=== PATIENT | male | born 1965 | race Caucasian/White ===

== ENCOUNTER 2021-01-04 11:19 | Outpatient (CLI) | payer BC, SELFPAY ==
[2021-01-04 12:13] LABS: D Dimer 0.32 ug/mL (<0.48)
== END 2021-01-04 11:20 | disposition home or self-care (01) ==
LOC: ANHLAB 11:20
PROVIDERS: PCP Family Medicine; Visit Provider Family Medicine
DX: M79.662 Pain in left lower leg (principal)
CPT/HCPCS: 36415; 85380

== ENCOUNTER 2022-01-18 15:01 | Outpatient (CLI) | payer BC, SELFPAY ==
[2022-01-18 16:43] LABS: Anion Gap 16 mmol/L (8-16); Blood Urea Nitrogen 15 mg/dL (9-20); Calcium 9.6 mg/dL (8.4-10.2); Carbon Dioxide 26 mmol/L (22-30); Chloride 91 mmol/L (98-107); Estimated Glomerular Filt Rate > 60; Glucose 354 mg/dL (65-110); HDL Direct 61 mg/dL; Potassium 4.3 mmol/L (3.4-5.0); Sodium 133 mmol/L (137-145)
[2022-01-18 16:54] LABS: LDL Cholesterol Direct 149 mg/dL
[2022-01-18 17:20] LABS: Microalbumin Urine Random 54.2 mg/L (0-16.7)
[2022-01-18 17:23] LABS: Creatinine Urine 40.9 mg/dL; MALB Creatinine Ratio 132.5 mg/g (0-30)
== END 2022-01-18 15:02 | disposition home or self-care (01) ==
LOC: ANHWCLAB 15:02
PROVIDERS: PCP Family Medicine; Visit Provider Internal Medicine Endocrinology, Diabetes & Metabolism
DX: E10.65 Type 1 diabetes mellitus with hyperglycemia (principal); E10.69 Type 1 diabetes mellitus with other specified complication; E78.5 Hyperlipidemia, unspecified
CPT/HCPCS: 36415; 80048; 82043; 83718; 83721; 84443

== ENCOUNTER 2023-05-27 08:19 | Emergency (ER) | payer BC, SELFPAY ==
[2023-05-27] VITALS (25 sets, daily range): BP systolic 129–182; BP diastolic 78–99; PULSE 106–121; RESP 15–26; O2SAT 99–100
--- NOTE | ~2023-05-27 | CT_ITS ---
EXAMINATION: CT abdomen pelvis w con DATE: 05/27/2023 09:39 INDICATION: Vomiting TECHNIQUE: Computed tomography (CT) of the abdomen and pelvis was performed with 100 mL Omnipaque-350 intravenous contrast. Automated exposure control and iterative reconstruction technique were employe d. The dose-length product was 700.46 mGy-cm. COMPARISON: None FINDINGS: Mild discoid atelectasis at the lingula, right middle and left lower lobes. Heart size is normal. No pericardial or pleural effusion. Liver, gallbladder, spleen, pancreas and bilateral adrenal glands ar e normal. Bilateral low-attenuation renal cysts the largest on the left measuring 1.5 cm. There is hutchinson btle urothelial enhancement along the left ureter and intrarenal collecting system which raises suspi cion for ascending urinary tract infection. No evident urolithiasis. Bladder is normal. Bowels includ ing the appendix are normal. No free intraperitoneal gas or fluid. No pathologically enlarged abdomin al or pelvic lymphadenopathy. Calcification along the bilateral seminal vesicles which can be seen wi th diabetes. Small fat-containing umbilical hernia. Severe lumbar and lower thoracic spondylosis. IMPRESSION: 1. Subtle urothelial enhancement along the left ureter and renal collecting system suspicious for asc ending urinary tract infection. Correlate with urinalysis. Reviewed, dictated and finalized at location B. IMPRESSION: 1. Subtle urothelial enhancement along the left ureter and renal collecting sys tem suspicious for ascending urinary tract infection. Correlate with urinalysis .
[2023-05-27 08:29] LABS: Glucose Point of Care 283 mg/dl (65-105)
[2023-05-27 08:36] LABS: Basophils Absolute Auto 0.1 K/mm3 (0.0-0.1); Basophils Percent Auto 0.2 % (0.2-1.2); Hematocrit 45.6 % (42.0-52.0); Hemoglobin 15.7 g/dL (14.0-18.0); Immature Granulocyte Absolute 0.15 K/mm3 (0.00-0.031); Immature Granulocyte Percent A 0.6 % (0-0.5); Lymphocytes Absolute Auto 1.33 K/mm3 (0.9-3.2); Mean Corpuscular HGB Conc 34.4 g/dl (32-36); Mean Corpuscular Hemoglobin 32.1 pg (26-34); Mean Corpuscular Volume 93.3 fl (80-100); Mean Platelet Volume 9.4 fl (7.4-10.4); Monocytes Absolute Auto 2.2 K/mm3 (0.1-0.6); Monocytes Percent Auto 8.2 % (2.6-8.5); Neutrophils Absolute Auto 22.9 K/mm3 (1.3-6.7); Platelet Count Result 350 k/mm3 (150-375); Red Blood Count 4.89 M/mm3 (4.6-6.20); Red Cell Distribution Width 12.7 % (11.5-14.5); White Blood Count 26.6 K/mm3 (4.5-10.0)
[2023-05-27] MEDS: SODIUM CHLORIDE 0.9% IV 1,000 ML 999 ML IV CONT ×2 (08:38→08:39)
[2023-05-27] MEDS: ONDANSETRON INJ 4 MG/2 ML VIAL IV PUSH (08:39)
[2023-05-27 08:49] LABS: Alanine Aminotransferase 34 U/L (6-50); Albumin Level 4.7 g/dL (3.5-5.1); Alkaline Phosphatase 109 U/L (38-126); Anion Gap 12 mmol/L (8-16); Aspartate Amino Transferase 54 U/L (17-59); Bilirubin,Total 0.6 mg/dL (0.2-1.3); Blood Urea Nitrogen 32 mg/dL (9-20); Calcium 10.1 mg/dL (8.4-10.2); Carbon Dioxide 17 mmol/L (22-30); Chloride 102 mmol/L (98-107); Estimated CRCL calculation 85 ml/min; Estimated Glomerular Filt Rate > 60; Glucose 293 mg/dL (65-110); Magnesium 2.3 mg/dL (1.6-2.3); Potassium 4.3 mmol/L (3.4-5.0); Sodium 131 mmol/L (137-145)
[2023-05-27 08:50] LABS: Beta-Hydroxybutyrate/Acetoacetate 2.29 mmol/L (0.02-0.27)
[2023-05-27 09:47] LABS: Influenza A QL RT-PCR Negative (Negative); Influenza B QL RT-PCR Negative (Negative); RSV RNA, RT-PCR Negative (Negative); SARS-CoV-2 RNA PCR Negative (Negative)
[2023-05-27 10:17] LABS: Appearance Urine Clear (Clear); Bilirubin Urine Negative (Negative); Blood Urine Negative (Negative); Color Urine Yellow (Yellow); Glucose Urine UA 2+ mg/dL (Negative); Ketones Urine 1+ mg/dL (Negative); Leukocyte Esterase Ur Negative LEU/UL (Negative); Nitrate Urine Negative (Negative); Protein Urine Negative (Negative); Specific Grav Ur 1.026 (1.001-1.035); Urobilinogen Urine 0.2 mg/dL (<2.0); pH Urine 5.5 (5.0-9.0)
[2023-05-27 10:18] LABS: Add Urine Microscopic? NO
[2023-05-27 10:24] LABS: Glucose Point of Care 251 mg/dl (65-105)
[2023-05-27 10:26] LABS: Lactic Acid Reflex 0.8 mmol/L (0.7-2.0)
[2023-05-27 10:34] LABS: Alveolar/Arterial O2 Gradient 35.4 mmHg; Base Excess ABG -8.7 mEq/l (+/-2.0); Carboxyhemoglobin 0.7 % THb (0-2.0); Fractional Inspired Oxygen 21 %; HCO3 ABG 15.3 mEq/l (22.0-26.0); Methemoglobin ABG 0.2 %THb (0-1.5); Oxygen Content ABG 19.8 %vol (16.0-22.0); Oxygen Saturation ABG 95.5 % (95.0-100.0); PCO2 ABG 28.5 mmHg (35.0-45.0); PO2 ABG 80.2 mmHg (80.0-100.0); PO2 FiO2 Ratio Arterial Blood 3.82 %; Reduced Hemoglobin 4.1 %THb (0-5.0); Total Hemoglobin 14.8 g/dL (12.0-18.0); pH ABG 7.348 (7.350-7.450)
[2023-05-27 10:35] LABS: Device ROOM AIR; Modified Allen's Test Pass; Site Drawn LEFT RADIAL
--- NOTE | 2023-05-27 13:15 | ED.GENADULT ---
HPI - General Adult General Chief complaint: Recheck/Abnormal Lab/Rx Stated complaint: N/V, high BS Time Seen by Provider: 05/27/23 08:29 History of Present Illness HPI narrative: Patient is a 58-year-old male who presents ER with nausea vomiting. Ongoing for 2 days. Severe yesterday. No antiemetics at home. Patient patient is a type 1 diabetic. His blood sugars have been greater than 500 yesterday. He felt too weak to bolus himself. He does have an insulin pump. Her chest pain chest pressure. No diarrhea. No known sick contacts. Related Data Home Medications Medication Instructions Recorded Confirmed glucagon 3 mg/actuation nasal spray 3 mg intranasal ONCE PRN 03/14/23 03/14/23 insulin pump cart,cont inf,BT 03/14/23 03/14/23 (Omnipod Dash Pods (Gen 4) subcutaneous cartridge) Allergies Allergy/AdvReac Type Severity Reaction Status Date / Time Penicillins Allergy Mild other Verified 05/27/23 08:24 cipro IV Allergy Mild Swelling Uncoded 05/27/23 08:24 Review of Systems Review of Systems: All systems reviewed & are unremarkable except as noted in HPI and below Constitutional: Constitutional: Denies chills, Reports fatigue and Denies fever(s) ENT: Reports system reviewed and no additional complaints, except as documented Cardiovascular: Cardiovascular: Reports no additional cardiovascular complaints Respiratory: Respiratory: Reports no additional respiratory complaints Gastrointestinal: Gastrointestinal: Denies abdominal pain, Denies bloating, Denies diarrhea, Reports nausea and Reports vomiting Genitourinary: Genitourinary: Reports no additional male genitourinary complaints Musculoskeletal: Musculoskeletal: Reports no additional musculoskeletal complaints [facility] Past Medical History Medical History (Updated 05/27/23 @ 13:17 by Danny Restrepo MD) Acute bilateral low back pain with left-sided sciatica Benign paroxysmal positional vertigo due to bilateral vestibular disorder BMI 29.0-29.9,adult BMI 30.0-30.9,adult BMI 31.0-31.9,adult Colon cancer screening Diabetes Diabetic retinopathy associated with type 1 diabetes mellitus 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 Encounter for wellness examination in adult Gastro-esophageal reflux disease without esophagitis H/O: HTN (hypertension) Overweight (BMI 25.0-29.9) Pain in left lower leg Social History Social History (Updated 03/14/23 @ 08:43 by Emma Hyde [facility]) Smoking status: Never smoker Alcohol intake: current Drinks per week: 3 Substance use: never Substance use type: does not use Do You Feel Safe in your Home?: Yes Lack of Transportation: No Lack of Food: Sometimes True Current Housing: I Have Housing Concerned About Future Housing: No Difficulty Paying Gas/Electric Bills: No Difficulty Paying for Meds: No Currently Unemployed: No Education: High School Diploma/GED Difficulty w/ Childcare or Family Care: No Exam Narrative: GENERAL: Fatigued-appearing, well-nourished, and in no acute distress. HEAD: Normocephalic, atraumatic. ENT: Mucous membranes moist. CHEST: Clear to auscultation. No respiratory distress. HEART: Tachycardic and regular. Normal peripheral pulses. ABDOMEN: Soft, nontender, nondistended. EXTREMITIES: Normal range of motion. No edema. SKIN: Warm, dry, no rash. NEURO: Alert and oriented x3. PSYCH: Normal mood and affect. Course Course Emergency Course: Patient given 2 L IV fluid. He has also received antiemetics. Feels much better you and has regained his appetite in the like to leave. Patient is still mildly tachycardic. Patient had some ketones in his very mild acidotic. Patient feels comfortable bolus himself with insulin at home. He will be given some antiemetics. Leukocytosis felt to be from forceful retching. CT of the abdomen pelvis showed some stranding of the ureter. We will cautiously prescribed oral an
== END 2023-05-27 13:42 | disposition home or self-care (01) ==
PROVIDERS: Emergency Provider Emergency Medicine; PCP Family Medicine
DX: E10.65 Type 1 diabetes mellitus with hyperglycemia (principal); R11.2 Nausea with vomiting, unspecified; Z20.822 Contact with and (suspected) exposure to COVID-19; I10 Essential (primary) hypertension; E10.3299 Type 1 diabetes mellitus with mild nonproliferative diabetic retinopathy without macular edema, unspecified eye; E66.3 Overweight; Z68.27 Body mass index [BMI] 27.0-27.9, adult; H81.13 Benign paroxysmal vertigo, bilateral; R93.41 Abnormal radiologic findings on diagnostic imaging of renal pelvis, ureter, or bladder; Z79.4 Long term (current) use of insulin
CPT/HCPCS: 36415; 36600; 74177; 80053; 81003; 82010; 82375; 82805; 82948; 83050; 83605; 83735; 84100; 85025; 87637; 96361; 96374; 99284; J2405; J7030; Q9967

== ENCOUNTER 2024-05-21 06:14 | Inpatient (IN) | payer OTHER, SELFPAY ==
[2024-05-21] VITALS (11 sets, daily range): BP systolic 136–164; BP diastolic 76–115; PULSE 89–117; RESP 16–163; TEMP 36.6–36.9; O2SAT 95–100; BMI 27.6
--- NOTE | ~2024-05-21 | US_ITS ---
EXAMINATION: US abdomen limited DATE: 05/21/2024 12:31 INDICATION: Elevated liver enzymes TECHNIQUE: Multiple grayscale and Doppler ultrasound images of the abdomen were obtained. COMPARISON: None FINDINGS: The pancreatic head and body are normal in appearance. The pancreatic tail is not visualized. Visu alized proximal inferior vena cava is normal. Liver has normal echogenicity and contour, with a william h surface. No liver lesion identified. No intrahepatic biliary duct dilation suspected. Portal venous flow was seen in the hepatopetal, normal direction and has normal Doppler waveform. The gallbladder is normal in appearance. There is no cholelithiasis. The common bile duct measures 4 mm, which is no rmal. Sonographic Amado sign was reported as negative by the training instructor.Right kidney measures 11.9 x 2.1 x 7.4 cm with normal contour and echogenicity and no hydronephrosis. IMPRESSION: 1. Normal right upper quadrant ultrasound. Reviewed, dictated and finalized at location L. [facility] DISPLAY BUILDER
--- NOTE | ~2024-05-21 | CT_ITS ---
CT of the Abdomen and Pelvis: Indication: Transaminitis Technique: 2.5 mm axial scans were obtained through the abdomen and pelvis following intravenous adm inistration of 100 cc of Omnipaque 350. Dose reduction technique was used on this scan by utilizing a utomated exposure control and iterative reconstruction technique. The dose-length product (DLP) was 5 11.24 mGy-cm. COMPARISON: 05/27/2023 Findings: Scans through the lung bases are unremarkable. There is probable diffuse fatty infiltration of liver. The spleen, pancreas, gallbladder, adrenals an d kidneys are within normal limits. No evidence of aortic aneurysm. No lymphadenopathy. No bowel obstruction or bowel wall thickening. There is no evidence to suggest acute appendicitis. Images through the pelvis were performed. Urinary bladder unremarkable. No pelvic mass seen. No ascit es. There is diffuse degenerative spondylosis of the spine. Impression: Diffuse fatty infiltration of the liver. Reviewed, dictated and finalized at [facility]. OR FINANCIAL ACCOUNTANT Impression: Diffuse fatty infiltration of the liver.
--- OUTSIDE RECORDS SUMMARY | 2024-05-21 06:16 | XMS_ITS | Clinical Summary ---
Author Organization [facility] Physician Office Building [address] [place] [id number] Care Team Providers Care Talent Management Manager Name Role Phone Josue Lei MD Primary Care Provider [phone] Allergies Active Allergy Reactions Criticality Noted Date Comments Ciprofloxacin Lactate Unknown Penicillins Medications insulin syringe-needle U-100 0.5 mL 31 gauge x 5/16 syringe Take as directed, 7x daily 630 3 01/21/20 07 Active lancets (ONETOUCH DELICA LANCETS) 33 gauge misc checks b/s QID 600 each 3 07/16/19 12 Active blood glucose diagnostic (ONETOUCH ULTRA TEST) strip tests 4 -6 times daily 600 3 06/08/19 11 Active glucagon (glucagon) 1 mg kit inject to patient in case of major hypoglycemia 2 kit 3 11/14/19 13 Active HYDROcodone-aceta minophen (NORCO) 5-325 mg per tabletIndications :Pain Take 1 tablet by mouth every 6 (six) hours as needed for pain 10/01/19 17 Active CIALIS 20 mg tablet Take as directed 11/05/19 18 Active OMNIPOD INSULIN REFILL cartridgeIndicati ons:Type 1 diabetes mellitus with hyperglycemia (HCC) Change pod every 2 days 9 each 3 12/18/19 18 Active amLODIPine (NORVASC) 10 mg tablet Take 1 tablet (10 mg total) by mouth daily 09/08/19 24 Active irbesartan (AVAPRO) 300 mg tablet Take 1 tablet (300 mg total) by mouth daily 09/08/19 24 Active atorvastatin (LIPITOR) 80 mg tablet Take 1 tablet (80 mg total) by mouth daily 09/08/19 24 Active Omnipod Dash Pods, Gen 4, cartridge CHANGE EVERY 48 HOURS 09/11/19 24 Active pen needle, diabetic (Pen Needle) 32 gauge x 5/32 needle Use as directed once a day. 100 each 10/22/19 24 Active insulin glargine (LANTUS) 100 unit/mL (3 mL) pen for injection Inject 50 Units under the skin nightly 15 mL 10/22/19 24 Active insulin glargine (LANTUS) 100 unit/mL (3 mL) pen for injection Inject 50 Units under the skin nightly 15 mL 10/22/19 24 Active pen needle, diabetic (Pen Needle) 32 gauge x 5/32 needle Use as directed once a day. 100 each 10/22/19 24 Active gabapentin (NEURONTIN) 300 mg capsule Take 1 capsule (300 mg total) by mouth 3 (three) times a day For post-herpetic neuralgia: Take 1 tablet on day 1, Then take 2 tablets on day 2, Then take 3 tablets on day 3 and every day after that as instructed by your doctor. 90 capsule 03/08/20 24 Active ketorolac (TORADOL) 10 mg tablet Take 1 tablet (10 mg total) by mouth every 6 (six) hours as needed for pain 20 tablet 03/08/20 24 Active cyclobenzaprine (FLEXERIL) 10 mg tablet Take 1 tablet (10 mg total) by mouth 3 (three) times a day as needed for muscle spasms 30 tablet 03/08/20 24 Active lidocaine (LIDODERM) 5 %Indications:Pain Place 1 patch on the skin daily Use patch for 12 hours on, 12 hours off. Discard after each use 7 patch 03/08/20 Active Active Problems Problem Noted Date Diagnosed Date Diabetic ketoacidosis withou t coma associated with type 1 diabetes mellitus 10/20/2023 Insulin pump status 11/05/2016 Assessment & Plan (11/05/2016 8:58 AM CDT): Increase 0700 basal to 3.3 History of insertion of insulin pump 11/13/2012 Overview (06/21/2016): Insulin pump status Assessment & Plan (12/12/2017 3:58 PM CDT): Increase 0700 basal to 3.5, 3 pm to 3.8. Will consider [place] change after seeing CGM report. No change to bolus settings. Hyperlipidemia 11/13/2012 Overview (06/22/2016): HYPERLIPIDEMIA NEC/NOS Assessment & Plan (12/12/2017 3:59 PM CDT): Will obtain copy of recent lipid panel. Type I diabetes mellitus uncontrolled 11/13/2012 Overview (06/23/2016): Diabetes Mellitus, Type 1, Uncontrolled Assessment & Plan (11/05/2016 8:59 AM CDT): A1c 7.6. BG are elevated across the day time. PC excursions sometimes elevated but less of an issue. Will adjust daytime basal rate. Check labs Type 1 diabetes mellitus 06/12/2012 Overview (06/22/2016): DMII WO CMP UNCNTRLD Assessment & Plan (12/12/2017 3:58 PM CDT): A1c 8.1. Will adjust basal rates. He is interested in getting Omnipod. Will be more beneficial for work. Would also recommend CGM to provide him with information overnight and for alerts for hypoglycemia. Assessment & Plan (11/12/2016 8:29 AM CDT): A1c 7.6. Will adjust basal rates for elevated mid day pattern. Needs to get copy of recent labs. Schedule eye exam. Encounters Date Type Department Care Team Description 03/08/2024 12:39 PM ACCOUNTANT CONTROLLER - 03/08/2024 2:09 PM [facility] Emergency [address] [address] Degeneration of intervertebral disc of lumbar region with discogenic back pain and lower extremity pain (Primary Dx) Discharge Disposition: Discharge to home or self care from Last 3 Months Medical History Medical History Date Comments Type 2 diabetes mellitus (HCC) D iabetes type 2 Family History Medical History Relation Name Comments Diabetes type II Sister Diabetes -T ype 2; Relation Name Status Comments Sister Social History Tobacco Use Types Packs/Day Years Used Date Smoking Tobacco: Never Smokeless Tobacco: Current Chew Alcohol Use Standard Drinks/Week Comments Yes 0 (1 standard drink = 0.6 oz pur e alcohol) AUDIT-C Answer Date Recorded Q1: How often do you have a drink containing alcohol? 4 or more times a week 10/20/2023 Q2: How many drinks containi ng alcohol do you have on a typical day when you are drinking? 3 or 4 Q3: How often do you have si x or more drinks on one occasion? Weekly 10/20/2023 Personal Safety Answer Date Recorded Have you ever been in or are you currently in a harmful physical or emotional relationship or is someone making you feel afraid or unsafe? Denies 03/08/2024 Sex and Gender Information Value Date Recorded Sex Assigned at Not on file Legal Sex Male 11:13 AM ACCOUNTANT CONTROLLER Gender Identity Not on file Sexual Orientation Not on file Obstetrics History Last Filed Vital Signs Vital Sign Reading Time Taken Comments Blood Pressure 163/80 03/08/2024 11:13 AM ACCOUNTANT CONTROLLER Pulse 99 03/08/2024 11:13 AM ACCOUNTANT CONTROLLER Temperature 36.9 C (98.4 F) 03/08/2024 11:13 AM ACCOUNTANT CONTROLLER Respiratory Rate 18 03/08/2024 11:13 AM ACCOUNTANT CONTROLLER Oxygen Saturation 99% 03/08/2024 11:13 AM ACCOUNTANT CONTROLLER Inhaled Oxygen Concentration - - Weight 86.4 kg (190 lb 7.6 oz) 10/20/2023 11:10 AM CDT Height 180.3 cm (5' 11 ) 10/20/2023 11:10 AM CDT Body Mass Index 26.57 10/20/2023 11:10 AM CDT Plan of Treatment Health Maintenance Due Date Last Done Comments Albumin Creatinine Ratio, Urine 1966 Colon Cancer Screening-Colonoscopy 1966 Hepatitis C Screening 1966 Prostate Cancer Screening-PSA 1966 TSH Level 1966 Dilated Eye Exam 1976 DTaP/Tdap/Td Vaccine (1 - Tdap) 1977 Hepatitis B Screening 1984 Regular Well Visit/Exam 18-64 1984 Pneumococcal vaccine <65 (1 of 2 - PCV) 1985 Zoster Vaccine (1 of 2) 2016 Lipid Panel 11/09/2016 11/10/2015, 06/16, 11/13/2012 Depression Screening 10/30/2017 10/30/2016 Foot Exam 12/12/2018 12/12/2017 Influenza Vaccine (#1) 2023 Hemoglobin A1C 04/21/2024 10/20/2023, 11/17, 10/30/2016, Additional history exists eGFR 10/21/2024 10/22/2023, 08/07/2023, 10/21/2023, Additional history exists Procedures Procedure Name Priority Date/Time Associated Diagnosis Comments CT LUMBAR SPINE WO CONTRAST ED 03/08/2024 12:19 PM ACCOUNTANT CONTROLLER EGFR Routine 10/22/2023 7:46 AM CDT HEMOGLOBIN A1C Routine 10/20/2023 11:46 AM CDT LIPID PANEL Routine 11/10/2015 2:09 PM CDT from Last 3 Months or Most Recently Relevant to Health Maintenance Results * CT Lumbar Spine WO Contrast (03/08/2024 12:19 PM ACCOUNTANT CONTROLLER) Anatomical Region Laterality Modality Spine N/A Computed Tomogra phy 03/08/2024 12:3 5 PM ACCOUNTANT CONTROLLER Narrative 03/08/2024 12:42 PM ACCOUNTANT CONTROLLER EXAM DESCRIPTION: CT LUMBAR SPINE WO CONTRAST REASON FOR STUDY: low back pain C/o low back pain with radiation to bilateral posterior thighs. Also c/o increased weakness to bilateral legs with increase back pain x 1 week. No new falls or trauma. States vicodin at home isnt helping Hx: diabetes, Hx of previous back surgeries(spinal fusion). TECHNIQUE: Axial images acquired through the lumbar spine without intravenous contrast. Reconstructed coronal and sagittal MPR images reviewed. All images stored on PACS. Automated exposure control was used as a dose optimization technique for this examination. COMPARISON: None available. FINDINGS: SEGMENTATION: For the purpose of this dictation assumption is made for the last well-formed disc space seen on series 3, image 125 to be labeled L5-S1. In this system of nomenclature the right L1 transverse process is unfused. If a surgical or therapeutic intervention is considered then recommend imaging of the complete spinal axis to accurately delineate the vertebral levels. ALIGNMENT: There is mild levoconvex curvature. Mild retrolisthesis of L2 on L3, L3 on L4 and L5 on S1. Mild anterolisthesis of L4 on L5. VERTEBRAE: There are a few scattered Schmorl's nodes. Anterior wedging of the lower thoracic vertebral bodies, L1 and L2 vertebral bodies. Multilevel endplate degenerative changes and marginal spur formation ranging up to severe. The L3 spinous process rounded lucency is nonspecific and presumed to be degenerative in nature. Multilevel facet arthropathy ranging from moderate to severe. DISC HEIGHT: Diffuse intervertebral disc height loss ranging up to severe with vacuum disc phenomenon. HARDWARE: None in the spine. INDIVIDUAL DISC LEVELS: Suboptimally evaluated by non myelographic CT technique. Borderline diminished anterior-posterior dimension of the bony spinal canal in keeping with congenitally shortened pedicles. L1-L2: Disc bulge with thickened/calcified ligamentum flavum and facet arthropathy. Mild osseous spinal canal stenosis. No significant osseous neural foraminal narrowing. L2-L3: Disc bulge with marginal spur formation. Thickened/partially calcified ligamentum flavum and facet arthropathy. Moderate osseous spinal canal stenosis. Lateral recess effacement on both sides. Moderate to severe left and ybfd-iw-kcdkpjzk right osseous neural foraminal narrowing. L3-L4: Disc bulge with marginal spur formation. Thickened ligamentum flavum and facet arthropathy. Proliferation of dorsal epidural fat. Moderate to severe spinal canal stenosis and lateral recess effacement on both sides. Moderate to severe osseous neural foraminal narrowing. L4-L5: Disc bulge with marginal spur formation. Thickened/partially calcified ligamentum flavum and facet arthropathy. Moderate to severe osseous spinal canal stenosis and lateral recess effacement on both sides. Moderate to severe osseous neural foraminal narrowing. L5-S1: Disc bulge with marginal spur formation. Left subarticular zone focus of gas is nonspecific but compatible with a herniated disc with vacuum phenomenon abutting the descending left S1 nerve root. Bilateral facet arthropathy. No significant osseous spinal canal stenosis. Avtc-dt-ynxndukk right and moderate to severe left osseous neural foraminal narrowing. SOFT TISSUES: Partially imaged calcified plaque in the abdominal aorta. A few nonspecific retroperitoneal lymph nodes. Partially imaged nonspecific distended urinary bladder. OTHER: Right iliac sclerotic focus (series 3, image 130) is nonspecific but compatible with bone island in a patient without history of malignancy. IMPRESSION: 1. Diffuse lumbar disc degeneration with thickened ligamentum flavum and facet arthropathy as described. Osseous spinal canal stenosis ranging up to moderate to severe and osseous neural foraminal narrowing ranging up to severe as above. 2. The need for further evaluation with MRI as clinically indicated. THIS IS AN ELECTRONICALLY VERIFIED FINAL REPORT 03/08/2024 12:42 PM - Electronically signed by Kyle REESE T: Report ID: [id number] Reading Location: [id number] Procedure Note Kyle Iniguez, DO - 03/08/2024 EXAM DESCRIPTION: CT LUMBAR SPINE WO CONTRAST REASON FOR STUDY: low back pain C/o low back pain with radiation to bilateral posterior thighs. Also c/o increased weakness to bilateral legs with increase back pain x 1 week. Nonew falls or trauma. States vicodin at home isnt helping Hx: diabetes, Hxof previous back surgeries(spinal fusion). TECHNIQUE: Axial images acquired through the lumbar spine withoutintravenous contrast. Reconstructed coronal and sagittal MPR images reviewed. Allimages stored on PACS. Automated exposure control was used as a dose optimization technique forthis examination. COMPARISON: None available. FINDINGS: SEGMENTATION: For the purpose of this dictation assumption ismade for the last well-formed disc space seen on series 3, image 125 to belabeled L5-S1. In this system of nomenclature the right L1 transverse process is unfused. If a surgical or therapeutic intervention is considered then recommend imaging of the complete spinal axis to accurately delineate the vertebral levels. ALIGNMENT: There is mild levoconvex curvature. Mild retrolisthesis of L2on L3, L3 on L4 and L5 on S1. Mild anterolisthesis of L4 on L5. VERTEBRAE: There are a few scattered Schmorl's nodes. Anterior wedgingof the lower thoracic vertebral bodies, L1 and L2 vertebral bodies.Multilevel endplate degenerative changes and marginal spur formation ranging up to severe. The L3 spinous process rounded lucency is nonspecific andpresumed to be degenerative in nature. Multilevel facet arthropathy ranging frommoderate to severe. DISC HEIGHT: Diffuse intervertebral disc height loss ranging up tosevere with vacuum disc phenomenon. HARDWARE: None in the spine. INDIVIDUAL DISC LEVELS: Suboptimally evaluated by non myelographic CT technique. Borderline diminished anterior-posterior dimension of the bony spinal canal in keeping with congenitally shortened pedicles. L1-L2: Disc bulge with thickened/calcified ligamentum flavum and facet arthropathy. Mild osseous spinal canal stenosis. No significant osseous neural foraminal narrowing. L2-L3: Disc bulge with marginal spur formation. Thickened/partiallycalcified ligamentum flavum and facet arthropathy. Moderate osseous spinal canal stenosis. Lateral recess effacement on both sides. Moderate to severeleft and xtip-nv-hcblorxg right osseous neural foraminal narrowing. L3-L4: Disc bulge with marginal spur formation. Thickened ligamentumflavum and facet arthropathy. Proliferation of dorsal epidural fat. Moderate to severe spinal canal stenosis and lateral recess effacement on both sides. Moderate to severe osseous neural foraminal narrowing. L4-L5: Disc bulge with marginal spur formation. Thickened/partiallycalcified ligamentum flavum and facet arthropathy. Moderate to severe osseousspinal canal stenosis and lateral recess effacement on both sides. Moderate to severe osseous neural foraminal narrowing. L5-S1: Disc bulge with marginal spur formation. Left subarticular zonefocus of gas is nonspecific but compatible with a herniated disc with vacuum phenomenon abutting the descending left S1 nerve root. Bilateral facet arthropathy. No significant osseous spinal canal stenosis.Gmmm-ae-rtcxpltc right and moderate to severe left osseous neural foraminal narrowing. SOFT TISSUES: Partially imaged calcified plaque in the abdominal aorta.A few nonspecific retroperitoneal lymph nodes. Partially imaged nonspecific distended urinary bladder. OTHER: Right iliac sclerotic focus (series 3, image 130) is nonspecificbut compatible with bone island in a patient without history of malignancy. IMPRESSION: 1. Diffuse lumbar disc degeneration with thickened ligamentum flavum and facet arthropathy as described. Osseous spinal canal stenosis ranging upto moderate to severe and osseous neural foraminal narrowing ranging up tosevere as above. 2. The need for further evaluation with MRI as clinically indicated. THIS IS AN ELECTRONICALLY VERIFIED FINAL REPORT 03/08/2024 12:42 PM - Electronically signed by Kyle REESE T: Report ID: [id number] Reading Location: [place] [address] Jenny Chavez NP IMG CT PROCEDURES Final Result * eGFR (10/22/2023 7:46 AM CDT) eGFR >90 >=60 mL/min/1. 73 m2 Comment: Interpretive Data Reference Interval Normal >/= 90 mL/min/1.73m2 Mildly decreased* 60 - 89 mL/min/1.73m2 Mildly to moderately decreased 45 - 59 mL/min/1.73m2 Moderately to severely decreased 30 - 44 mL/min/1.73m2 Severely decreased 15 - 29 mL/min/1.73m2 Kidney Failure < 15 mL/min/1.73m2 *Relative to young adult level Estimated glomerular filtration rate is determined by the 2020 CKD-EPI equation recommended by the National Kidney Foundation (A Unifying Approach to GFR Estimation: Recommendations of the NKF-ASK Task Force on Reassessing the Inclusion of Race in Diagnosing Kidney Disease, JASN 2020). The CKD-EPI equation should not be used for patients with unstable renal function and has not been validated in children and those over 70. Current interpretive data was last reviewed 2021. Blood 10/22/2023 7:46 AM CDT 10/22/2023 8:19 AM CDT Anna Villela NP LAB BLOOD ORDERABLES Michaela l Result [facility] [address] [facility] Department [place] [address] * (ABNORMAL) Hemoglobin A1c (10/20/2023 11:46 AM CDT) Hgb A1C 10.4(H) 4.0 - 5.6 % Estimated Average Glucose 252 mg/dL [facility] NEW Comment: The ADA recommends reporting an estimated Average Glucose (eAG) with all Hemoglobin A1c results using the equation derived from a study of 507 normal and diabetic adults. Minority populations were underrepresented and children were not included. (Diabetes Care 31:2121-5350, 2008). The eAG is not equivalent to a fasting glucose. Blood 10/20/2023 11:4 6 AM CDT 10/20/2023 11:59 AM CDT Anna Villela NP LAB BLOOD ORDERABLES Michaela crespo Result [facility] [address] [facility] Department [place] [address] * (ABNORMAL) Lipid panel (11/10/2015 2:09 PM CDT) SCRIBED Cholesterol, Total 236(A) 0 - 200 [facility] SCRIBED HDL 50 40 - 100 [facility] SCRIBED LDL 132(A) 0 - 100 [facility] SCRIBED Triglycerides 270(A) 0 - 150 [facility] Blood specimen (specimen) Historical Provider LAB BLOOD ORDERABLES Edit ed Result - Final [facility] from Last 3 Months or Most Recently Relevant to Health Maintenance Insurance [facility] TRADITIONAL BLUE ACC CHOICE OOS [facility] CHOICE OOS Advance Directives For more information, please contact: [phone] * Full Code (Latest Code Status on File) Date Activated Date Inactivated Comments 10/20/2023 11:12 AM 10/22/2023 11:34 PM Care Teams Talent Management Manager Relationship Specialty Start Date End Date Josue Lei MD [address] [address] PCP - General 06/15/16
--- OUTSIDE RECORDS SUMMARY | 2024-05-21 06:16 | XMS_ITS | Continuity of Care Document ---
Author Organization [facility] Address [address] [place] [address] Phone Care Team Providers Care Fireperson Name Role Phone Jay Ramos Unavailable Unavailable [...] Diagnoses Date Provider Providers Copied on Encounter [facility], [address] [place] [address] [address], [place], [place], [id number], [place] tel:[phone] SEC [facility] No Information 2-201 0 Richard Thompson. [address] [place], [address], [place]. tel:[phone] Referring Provider: Jay Berger, [address], [place], [facility]. tel:[phone] [facility], [address] [place] [address] [address], [place], [place], [id number], [place] tel:[phone] [facility] No Information Oct-0 6-200 9 Richard Thompson. [address], [place], [facility], [place]. tel:[phone] Referring Provider: Jay Berger, [address], [place], [facility]. tel:[phone] [facility], [id number] [place] [address] [address], [place], [place], [id number], [place] tel:[phone] [facility] No Information 9 David Franciscohil. [address], [place], [place], [facility], [place]. tel:[phone] Office Consultation [facility], [address], [place], [place], [id number], [place] tel:[phone] SEC [facility] No Information 8 Richard Thompson. [address], [place], [facility], [place]. tel:[phone] Referring Provider: Pearl Edwards, [address] [place], [place] [address], [place], [place], [facility]. tel:[phone] Office/outpati ent Visit, [facility], [address] [place] [address] [address], [place], [place], [id number], [place] tel:[phone] SEC [facility] No Information 8 Lucila Kang. [facility] , [address], [place], [place], [facility], [place]. tel:[phone] Office/outpati ent Visit, [facility], [id number] [place] [address] [address], [place], [place], [id number], [place] tel:[phone] [facility] No Information 8 Lucila Kang. [address] [facility] , [address], [place], [place], [facility], [place]. tel:[phone] Office/outpati ent Visit, [facility], [address] [place] [address] [address], [place], [place], [id number], [place] tel:[phone] SEC [facility] No Information Sep-0 3-200 7 Gaytan Pearl. [address] , [address], [place], [address], . tel:[phone] [facility], [address], [place], [place], [id number], [place] tel:[phone] SEC [facility] No Information Feb-2 6-200 6 Gaytan Pearl. [address] [facility] , [address], [place], [address], [place]. tel:[phone] Referring Provider: Josue Lei MD, [address] [place] [address], [place], [address]. tel:[phone] Family History Family Member Type Diagnosis Age [...]
--- OUTSIDE RECORDS SUMMARY | 2024-05-21 06:16 | XMS_ITS | Referral Summary ---
Author Organization [facility] Physician Office Building [address] [place] [phone] Care Team Providers Care Relay Motorman Name Role Phone Josue Lei MD Primary Care Provider [phone] Encounters Date Type Department Care Team Description 03/08/2024 12:39 PM COMPUTER HELP DESK REPRESENTATIVE - 03/08/2024 2:09 PM [facility] Emergency [address] [address] Degeneration of intervertebral disc of lumbar region with discogenic back pain and lower extremity pain (Primary Dx) Discharge Disposition: Discharge to home or self care from Last 3 Months Allergies Active Allergy Reactions Criticality Noted Date [...] 4, cartridge CHANGE EVERY 48 HOURS 09/11/19 Active pen needle, diabetic (Pen Needle) 32 [...] instructed by your doctor. 90 capsule 03/08/20 Active ketorolac (TORADOL) 10 mg tablet Take 1 tablet (10 mg total) by mouth every 6 (six) hours as needed for pain 20 tablet 03/08/20 Active cyclobenzaprine (FLEXERIL) 10 mg tablet Take [...] copy of recent labs. Schedule eye exam. Social History Tobacco Use Types Packs/Day Years [...] on file Legal Sex Male 11:13 AM COMPUTER HELP DESK REPRESENTATIVE Gender Identity Not on file Sexual Orientation Not on file Last Filed Vital Signs Vital Sign Reading Time Taken Comments Blood Pressure 163/80 03/08/2024 11:13 AM COMPUTER HELP DESK REPRESENTATIVE Pulse 99 03/08/2024 11:13 AM COMPUTER HELP DESK REPRESENTATIVE Temperature 36.9 C (98.4 F) 03/08/2024 11:13 AM COMPUTER HELP DESK REPRESENTATIVE Respiratory Rate 18 03/08/2024 11:13 AM COMPUTER HELP DESK REPRESENTATIVE Oxygen Saturation 99% 03/08/2024 11:13 AM COMPUTER HELP DESK REPRESENTATIVE Inhaled Oxygen Concentration - - Weight 86.4 kg (190 lb 7.6 oz) 10/20/2023 11:10 AM CDT Height 180.3 cm (5' 11 ) 10/20/2023 11:10 AM CDT Body Mass Index 26.57 10/20/2023 11:10 AM CDT Plan of Treatment Not on file Procedures Procedure Name Priority Date/Time Associated Diagnosis Comments CT LUMBAR SPINE WO CONTRAST ED 03/08/2024 12:19 PM COMPUTER HELP DESK REPRESENTATIVE EGFR Routine 10/22/2023 7:46 AM CDT HEMOGLOBIN A1C Routine 10/20/2023 11:46 AM CDT LIPID PANEL Routine 11/10/2015 2:09 PM CDT from Last 3 Months or Most Recently Relevant to Health Maintenance Results * CT Lumbar Spine WO Contrast (03/08/2024 12:19 PM COMPUTER HELP DESK REPRESENTATIVE) Anatomical Region Laterality Modality Spine N/A Computed Tomogra phy 03/08/2024 12:3 5 PM COMPUTER HELP DESK REPRESENTATIVE Narrative 03/08/2024 12:42 PM COMPUTER HELP DESK REPRESENTATIVE EXAM DESCRIPTION: CT LUMBAR SPINE WO CONTRAST [...] both sides. Moderate to severe left and bfkw-dj-tcdjfpui right osseous neural foraminal narrowing. L3-L4: Disc [...] arthropathy. No significant osseous spinal canal stenosis. Ynqh-bw-uimqseez right and moderate to severe left osseous [...] signed by Kyle REESE T: Report ID: [id number] Reading Location: [place] [address] Procedure Note Kyle Iniguez, DO - 03/08/2024 [...] on both sides. Moderate to severeleft and dlvl-he-oqoggasv right osseous neural foraminal narrowing. L3-L4: Disc [...] facet arthropathy. No significant osseous spinal canal stenosis.Tzxa-et-qezwmabg right and moderate to severe left osseous [...] signed by Kyle REESE T: Report ID: [id number] Reading Location: [place] [address] Jenny Chavez NP IMG CT PROCEDURES Final [...] of Race in Diagnosing Kidney Disease, JASN 202). The CKD-EPI equation should not be used for patients with unstable renal function and has not been validated in children and those over 70. Current interpretive data was last reviewed 2021. Blood 10/22/2023 7:46 AM CDT 10/22/2023 8:19 AM CDT [place] LAB BLOOD ORDERABLES Michaela l Result Performing Organization Address [facility] de Phone Number [address] [address] * (ABNORMAL) Hemoglobin A1c (10/20/2023 11:46 AM CDT) Hgb A1C 10.4(H) 4.0 - 5.6 % Estimated Average Glucose 252 mg/dL RICHARD Comment: The ADA recommends reporting an estimated Average Glucose (eAG) with all Hemoglobin A1c results using the equation derived from a study of 507 normal and diabetic adults. Minority populations were underrepresented and children were not included. (Diabetes Care 31:9820-7458, 2008). The eAG is not equivalent to a fasting glucose. Blood 10/20/2023 11:4 6 AM CDT 10/20/2023 11:59 AM CDT [facility] Michaela l Result Performing Organization Address [facility] de Phone Number [address] [address] * (ABNORMAL) Lipid panel (11/10/2015 2:09 PM CDT) [facility] SCRIBED Cholesterol, Total 236(A) 0 - 200 [facility] SCRIBED HDL 50 40 - 100 [facility] SCRIBED LDL 132(A) 0 - 100 [facility] SCRIBED Triglycerides 270(A) 0 - 150 [facility] Blood specimen (specimen) Historical Provider LAB BLOOD ORDERABLES Edit ed Result - Final Performing Organization Address City/[facility] de Phone Number [facility] from Last 3 Months or Most Recently Relevant to Health Maintenance Insurance BLUE ACC CHOICE OOS BLUE [facility] CHOICE OOS Advance Directives For more information, please contact: [phone] * Full Code (Latest Code Status on File) Date Activated Date Inactivated Comments 10/20/2023 11:12 AM 10/22/2023 11:34 PM Care Teams Relay Motorman Relationship Specialty Start Date End Date Josue Lei MD [address] [place] [phone] PCP - General 06/15/16
[2024-05-21 06:50] LABS: Alanine Aminotransferase 125 U/L (6-50); Albumin Level 4.6 g/dL (3.5-5.1); Alkaline Phosphatase 127 U/L (38-126); Anion Gap 23 mmol/L (4-12); Aspartate Amino Transferase 259 U/L (17-59); Bilirubin,Total 1.4 mg/dL (0.2-1.3); Blood Urea Nitrogen 14 mg/dL (9-20); Calcium 9.6 mg/dL (8.4-10.2); Carbon Dioxide 14 mmol/L (22-30); Chloride 96 mmol/L (98-107); Estimated CRCL calculation 108 ml/min; Estimated Glomerular Filt Rate > 60; Glucose 422 mg/dL (65-110); Magnesium 1.6 mg/dL (1.6-2.3); Phosphorus 3.4 mg/dL (2.5-4.5); Potassium 5.1 mmol/L (3.4-5.0); Sodium 133 mmol/L (137-145)
[2024-05-21 07:19] LABS: Beta-Hydroxybutyrate/Acetoacetate 7.79 mmol/L (0.02-0.27)
[2024-05-21 07:21] LABS: Glucose Point of Care 377 mg/dl (65-105)
[2024-05-21 07:26] LABS: Add Urine Microscopic? YES; Appearance Urine Clear (Clear); Bacteria Urine None Seen /hpf; Bilirubin Urine Negative (Negative); Blood Urine 2+ (Negative); Color Urine Yellow (Yellow); Glucose Urine UA 3+ mg/dL (Negative); Ketones Urine 4+ mg/dL (Negative); Leukocyte Esterase Ur Negative LEU/UL (Negative); Nitrate Urine Negative (Negative); Non Pathogenic Casts 0-2; Protein Urine 1+ mg/dL (Negative); RBC Urine 0-2 /hpf (0-2); Specific Grav Ur 1.027 (1.001-1.035); Squamous Epithelial Cell Urine None Seen /hpf (Few); Urobilinogen Urine 0.2 mg/dL (<2.0); WBC Urine 0-5 /hpf (0-3); pH Urine 5.5 (5.0-9.0)
--- NOTE | 2024-05-21 07:27 | ED.GENADULT ---
HPI - General Adult General Chief complaint: Recheck/Abnormal Lab/Rx Stated complaint: sugars high, no pod for a few days Time Seen by Provider: 05/21/24 06:53 History of Present Illness HPI narrative: 51-year-old male history of type 1 diabetes. Patient states due to insurance issues he was unable to get his on the [employer] field. Patient states over the last 4 days he has been blindly treating his diabetes. Patient reports he has had increased confusion, some nausea, decreased p.o. intake leg cramping and was suspicious that he was having DKA. Patient denies any illness prior to the Omni pod failure. Related Data Home Medications ?Medication ?Instructions ?Recorded ?Confirmed ?Last Taken ?Type glucagon 3 mg/actuation nasal spray 3 mg intranasal ONCE PRN 03/14/23 05/21/24 Unknown History hypoglycemia amlodipine 10 mg tablet (Norvasc) 10 mg PO DAILY@1700 05/21/24 05/21/24 Unknown History atorvastatin 80 mg tablet 80 mg PO DAILY@1700 05/21/24 05/21/24 Unknown History insulin pump cart,auto,BT,G6/7 05/21/24 05/21/24 Unknown History (Omnipod 5 G6-G7 Pods (Gen 5) subcutaneous cartridge) irbesartan 300 mg tablet 300 mg PO DAILY@1700 05/21/24 05/21/24 Unknown History Allergies Allergy/AdvReac Type Severity Reaction Status Date / Time ciprofloxacin Allergy Intermediate Swelling Verified 05/21/24 09:50 Penicillins Allergy Mild other Verified 05/21/24 09:50 Review of Systems Review of Systems: All systems reviewed & are unremarkable except as noted in HPI and below [facility] Past Medical History Medical History Mixed hyperlipidemia LDL 149 with HDL 61 on 01/18/2022. 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 Mild nonproliferative diabetic retinopathy 12/16/2023. Colon cancer screening Family History Family History Father Cerebrovascular accident Myocardial infarction Social History Social History Smoking status: Never smoker Smokeless tobacco user: chewing tobacco Second hand tobacco smoke exposure: No Alcohol intake: current Drinks per week: 40 Alcohol use details: Ring 6 drinks of vodka every day. Estimates intake of 40 drinks a week on average Substance use: never Substance use type: does not use Do You Feel Safe in your Home?: Yes Lack of Transportation: No Lack of Food: Sometimes True Current Housing: I Have Housing Concerned About Future Housing: No Difficulty Paying Gas/Electric Bills: No Difficulty Paying for Meds: No Currently Unemployed: No Education: High School Diploma/GED Difficulty w/ Childcare or Family Care: No Spiritual care concerns: No Exam Narrative: APPEARANCE: Well appearing, no pain, no distress, well-nourished. HEAD: normocephalic, atraumatic. EYES: PERRLA/EOMI, conjunctivae clear. NOSE: Normal no drainage EARS:TMS clear with good light reflex. THROAT: Pharynx clear, no exudate. NECK: Supple. No adenopathy, no masses. RESPIRATORY: Airway patent, respirations nonlabored. Clear to auscultation bilaterally, no rales, rhonchi, wheezing. CARDIOVASCULAR: Regular rate and rhythm without murmurs rubs or gallops. ABDOMINAL: Soft, nontender, nondistended, normal bowel sounds MUSCULOSKELETAL: Lower extremity cramping NEURO: Alert. Cranial nerves II through XII intact. Good gait. Good coordination SKIN: Warm, dry. Normal Color Course Vital Signs Vital signs: Vital Signs Temperature 98.5 F 05/21/24 06:44 Pulse Rate 110 H 05/21/24 06:44 Respiratory Rate 17 05/21/24 06:44 Blood Pressure 152/80 H 05/21/24 06:44 Pulse Oximetry 99 05/21/24 06:44 Temperature 98.2 F 05/21/24 16:00 Pulse Rate 95 05/21/24 16:00 Respiratory Rate 16 05/21/24 16:00 Blood Pressure 147/84 H 05/21/24 16:00 Pulse Oximetry 99 05/21/24 16:00 Oxygen Delivery Room Air 05/21/24 16:00 Medical Decision Making [facility] Narrative Medical decision making narrative: 59-year-old gentleman with type 1 diabetes presenting the emergency department for evaluation for elevated blood sugars nausea vomiting and suspected DKA. Patient is currently afebrile but does have a leukocytosis of 12.4 hemoglobin of 14.4. On patient's CMP he did have an elevated potassium of 5.1, and anion gap of 23 and blood glucose of 422 on arrival. Patient's hemoglobin A1c was 8.4. Patient did have diffuse transaminitis with AT bili of 1.4, AST 259 ALT of 125 alk-phos of 127. Patient's beta hydroxybutyrate was 7.79. Urine was positive for ketones but negative for infection. Patient was started on IV fluids insulin bolus and insulin infusion. Case was discussed with the pe electrical engineer and patient will go to the ICU for DKA. Case was also discussed with hospitalist patient was accepted for admission. Patient was updated on the results of workup and plan for admission. All questions concerns were addressed. Differential Diagnosis Differential Diagnosis: COVID, RSV, influenza, DKA Vital Signs Vital Signs: Vital Signs Temperature 98.5 F 05/21/24 06:44 Pulse Rate 110 H 05/21/24 06:44 Respiratory Rate 17 05/21/24 06:44 Blood Pressure 152/80 H 05/21/24 06:44 Pulse Oximetry 99 05/21/24 06:44 Temperature 98.2 F 05/21/24 16:00 Pulse Rate 95 05/21/24 16:00 Respiratory Rate 16 05/21/24 16:00 Blood Pressure 147/84 H 05/21/24 16:00 Pulse Oximetry 99 05/21/24 16:00 Oxygen Delivery Room Air 05/21/24 16:00 Lab Data Lab results reviewed: Yes I reviewed the patient's lab results. 05/21/24 06:32 05/21/24 15:46 Labs: Lab Results 05/21/24 05/21/24 05/21/24 Range/Units 06:20 06:32 07:12 WBC 12.4 H (4.5-10.0) K/mm3 RBC 4.56 L (4.6-6.20) M/mm3 Hgb 14.4 (14.0-18.0) g/dL Hct 43.7 (42.0-52.0) % MCV 95.8 (80-100) fl MCH 31.6 (26-34) pg MCHC 33.0 (32-36) g/dl RDW 12.4 (11.5-14.5) % Plt Count 408 H (150-375) k/mm3 MPV 9.8 (7.4-10.4) fl Immature Gran % (Auto) 0.4 (0-0.5) % Neut % (Auto) 73.3 H (45.5-73.1) % Lymph % (Auto) 14.5 L (18.3-44.2) % [place] % (Auto) 10.9 H (2.6-8.5) % Eos % (Auto) 0.3 (0-4.4) % Baso % (Auto) 0.6 (0.2-1.2) % Lymph # (Auto) 1.79 (0.9-3.2) K/mm3 [place] # (Auto) 1.4 H (0.1-0.6) K/mm3 Eos # (Auto) 0.0 (0-0.3) K/mm3 Baso # (Auto) 0.1 (0.0-0.1) K/mm3 Abs Immat Gran (auto) 0.05 H (0.00-0.031) K/mm3 Absolute Neuts (auto) 9.0 H (1.3-6.7) K/mm3 Absolute Nucleated RBC 0.000 (0.0-0.012) K/mm3 Nucleated RBC % 0.0 (0.0-0.2) % Sodium 133 L (137-145) mmol/L Potassium 5.1 H (3.4-5.0) mmol/L Chloride 96 L (98-107) mmol/L Carbon Dioxide 14 L (22-30) mmol/L Anion Gap 23 H (4-12) mmol/L BUN 14 D (9-20) mg/dL Creatinine 0.68 L (0.7-1.3) mg/dL Estim Creat Clear Calc 108 ml/min Estimated GFR > 60 (59 - ) Glucose 422 H (65-110) mg/dL POC Capillary Glucose 377 H (65-105) mg/dl Hemoglobin A1c 8.4 H (<5.7) % Calcium 9.6 (8.4-10.2) mg/dL Phosphorus 3.4 (2.5-4.5) mg/dL Magnesium 1.6 (1.6-2.3) mg/dL Total Bilirubin 1.4 H (0.2-1.3) mg/dL AST 259 H (17-59) U/L ALT 125 H (6-50) U/L Alkaline Phosphatase 127 H (38-126) U/L Total Protein 8.0 (6.3-8.2) g/dL Albumin 4.6 (3.5-5.1) g/dL Beta-Hydroxybutyrate/Acetoacetate 7.79 H (0.02-0.27) mmol/L Urine Color Yellow (Yellow) Urine Appearance Clear (Clear) Urine pH 5.5 (5.0-9.0) Ur Specific [address] 1.027 (1.001-1.035) Urine Protein 1+ H (Negative) mg/dL Urine Glucose (UA) 3+ H (Negative) mg/dL Urine Ketones 4+ H (Negative) mg/dL Ur Blood (Man) 2+ H (Negative) Urine Nitrate Negative (Negative) Urine Bilirubin Negative (Negative) Urine Urobilinogen 0.2 (<2.0) mg/dL Leukocyte Esterase Rfl Negative (Negative) MICHAEL/UL Urine RBC 0-2 (0-2) /hpf Urine WBC 0-5 (0-3) /hpf Ur Squamous Epith Cells None seen (Few) /hpf Urine Bacteria None seen /hpf Urine Casts 0-2 Influenza A (RT-PCR) (Negative) Influenza B (RT-PCR) (Negative) RSV (RT-PCR) (Negative) SARS-CoV-2 RNA (RT-PCR) (Negative) 05/21/24 Range/Units 07:34 WBC (4.5-10.0) K/mm3 RBC (4.6-6.20) M/mm3 Hgb (14.0-18.0) g/dL Hct (42.0-52.0) % MCV (80-100) fl MCH (26-34) pg MCHC (32-36) g/dl RDW (11.5-14.5) % Plt Count (150-375) k/mm3 MPV (7.4-10.4) fl Immature Gran % (Auto) (0-0.5) % Neut % (Auto) (45.5-73.1) % Lymph % (Auto) (18.3-44.2) % [place] % (Auto) (2.6-8.5) % Eos % (Auto) (0-4.4) % Baso % (Auto) (0.2-1.2) % Lymph # (Auto) (0.9-3.2) K/mm3 [place] # (Auto) (0.1-0.6) K/mm3 Eos # (Auto) (0-0.3) K/mm3 Baso # (Auto) (0.0-0.1) K/mm3 Abs Immat Gran (auto) (0.00-0.031) K/mm3 Absolute Neuts (auto) (1.3-6.7) K/mm3 Absolute Nucleated RBC (0.0-0.012) K/mm3 Nucleated RBC % (0.0-0.2) % Sodium (137-145) mmol/L Potassium (3.4-5.0) mmol/L Chloride (98-107) mmol/L Carbon Dioxide (22-30) mmol/L Anion Gap (4-12) mmol/L BUN (9-20) mg/dL Creatinine (0.7-1.3) mg/dL Estim Creat Clear Calc ml/min Estimated GFR (59 - ) Glucose (65-110) mg/dL POC Capillary Glucose (65-105) mg/dl Hemoglobin A1c (<5.7) % Calcium (8.4-10.2) mg/dL Phosphorus (2.5-4.5) mg/dL Magnesium (1.6-2.3) mg/dL Total Bilirubin (0.2-1.3) mg/dL AST (17-59) U/L ALT (6-50) U/L Alkaline Phosphatase (38-126) U/L Total Protein (6.3-8.2) g/dL Albumin (3.5-5.1) g/dL Beta-Hydroxybutyrate/Acetoacetate (0.02-0.27) mmol/L Urine Color (Yellow) Urine Appearance (Clear) Urine pH (5.0-9.0) Ur Specific [address] (1.001-1.035) Urine Protein (Negative) mg/dL Urine Glucose (UA) (Negative) mg/dL Urine Ketones (Negative) mg/dL Ur Blood (Man) (Negative) Urine Nitrate (Negative) Urine Bilirubin (Negative) Urine Urobilinogen (<2.0) mg/dL Leukocyte Esterase Rfl (Negative) MICHAEL/UL Urine RBC (0-2) /hpf Urine WBC (0-3) /hpf Ur Squamous Epith Cells (Few) /hpf Urine Bacteria /hpf Urine Casts Influenza A (RT-PCR) Negative (Negative) Influenza B (RT-PCR) Negative (Negative) RSV (RT-PCR) Negative (Negative) SARS-CoV-2 RNA (RT-PCR) Negative (Negative) Imaging Data Radiologist's impression: Impressions Abdomen/Pelvis CT 05/21/24 07:45 Impression: Diffuse fatty infiltration of the liver. Critical Care Time Critical Care Time Critical Care Time: Yes Total Critical Care Time: 35 Discharge Plan Discharge Clinical Impression: DKA (diabetic ketoacidosis) Qualifiers: Diabetes mellitus type: type 1 Diabetes mellitus complication detail: without coma Qualified Code(s): E10.10 - Type 1 diabetes mellitus with ketoacidosis without coma Patient Disposition: Still a Patient Condition: Critical
[2024-05-21 07:33] LABS: Basophils Absolute Auto 0.1 K/mm3 (0.0-0.1); Basophils Percent Auto 0.6 % (0.2-1.2); Eosinophils Percent Auto 0.3 % (0-4.4); Hematocrit 43.7 % (42.0-52.0); Hemoglobin 14.4 g/dL (14.0-18.0); Immature Granulocyte Absolute 0.05 K/mm3 (0.00-0.031); Immature Granulocyte Percent A 0.4 % (0-0.5); Lymphocytes Absolute Auto 1.79 K/mm3 (0.9-3.2); Lymphocytes Percent Auto 14.5 % (18.3-44.2); Mean Corpuscular Hemoglobin 31.6 pg (26-34); Mean Corpuscular Volume 95.8 fl (80-100); Mean Platelet Volume 9.8 fl (7.4-10.4); Monocytes Absolute Auto 1.4 K/mm3 (0.1-0.6); Monocytes Percent Auto 10.9 % (2.6-8.5); Neutrophils Percent Auto 73.3 % (45.5-73.1); Platelet Count Result 408 k/mm3 (150-375); Red Blood Count 4.56 M/mm3 (4.6-6.20); Red Cell Distribution Width 12.4 % (11.5-14.5); White Blood Count 12.4 K/mm3 (4.5-10.0)
[2024-05-21 07:59] LABS: Hemoglobin A1C 8.4 % (<5.7)
--- OUTSIDE RECORDS SUMMARY | 2024-05-21 08:01 | XMS_ITS | Referral Summary ---
Author Organization [facility] Physician Office Building [address] [place] [id number] Care Team Providers Care Speech Pathologist Assistant Name Role Phone Josue Lei MD Primary Care Provider [phone] Encounters Date Type Department Care Team Description 03/08/2024 12:39 PM PUBLIC SERVICE DIRECTOR - 03/08/2024 2:09 PM [facility] Emergency [address] [address] Degeneration of intervertebral disc of lumbar region [...] on file Legal Sex Male 11:13 AM PUBLIC SERVICE DIRECTOR Gender Identity Not on file Sexual Orientation Not on file Last Filed Vital Signs Vital Sign Reading Time Taken Comments Blood Pressure 163/80 03/08/2024 11:13 AM PUBLIC SERVICE DIRECTOR Pulse 99 03/08/2024 11:13 AM PUBLIC SERVICE DIRECTOR Temperature 36.9 C (98.4 F) 03/08/2024 11:13 AM PUBLIC SERVICE DIRECTOR Respiratory Rate 18 03/08/2024 11:13 AM PUBLIC SERVICE DIRECTOR Oxygen Saturation 99% 03/08/2024 11:13 AM PUBLIC SERVICE DIRECTOR Inhaled Oxygen Concentration - - Weight 86.4 kg (190 lb 7.6 oz) 10/20/2023 11:10 AM CDT Height 180.3 cm (5' 11 ) 10/20/2023 11:10 AM CDT Body Mass Index 26.57 10/20/2023 11:10 AM CDT Plan of Treatment Not on file Procedures Procedure Name Priority Date/Time Associated Diagnosis Comments CT LUMBAR SPINE WO CONTRAST ED 03/08/2024 12:19 PM PUBLIC SERVICE DIRECTOR EGFR Routine 10/22/2023 7:46 AM CDT HEMOGLOBIN A1C Routine 10/20/2023 11:46 AM CDT LIPID PANEL Routine 11/10/2015 2:09 PM CDT from Last 3 Months or Most Recently Relevant to Health Maintenance Results * CT Lumbar Spine WO Contrast (03/08/2024 12:19 PM PUBLIC SERVICE DIRECTOR) Anatomical Region Laterality Modality Spine N/A Computed Tomogra phy 03/08/2024 12:3 5 PM PUBLIC SERVICE DIRECTOR Narrative 03/08/2024 12:42 PM PUBLIC SERVICE DIRECTOR EXAM DESCRIPTION: CT LUMBAR SPINE WO CONTRAST [...] both sides. Moderate to severe left and jucg-dw-rffvufao right osseous neural foraminal narrowing. L3-L4: Disc [...] arthropathy. No significant osseous spinal canal stenosis. Eofm-rr-uhkhzgaf right and moderate to severe left osseous [...] signed by Kyle REESE T: Report ID: [id number] Reading Location: [place] [address] Procedure Note Kyle Iniguez, DO - 03/08/2024 [...] on both sides. Moderate to severeleft and kcfl-lf-acpdkpwp right osseous neural foraminal narrowing. L3-L4: Disc [...] facet arthropathy. No significant osseous spinal canal stenosis.Hwgd-ju-ihttgthw right and moderate to severe left osseous [...] signed by Kyle REESE T: Report ID: [id number] Reading Location: [place] [address] Jenny Chavez NP IMG CT PROCEDURES Final [...] ORDERABLES Michaela l Result Performing Organization Address [facility] de Phone Number [address] [address] * (ABNORMAL) Hemoglobin A1c (10/20/2023 11:46 AM CDT) Hgb A1C 10.4(H) 4.0 - 5.6 % Estimated Average Glucose 252 mg/dL RICHARD Comment: The ADA recommends reporting an estimated Average Glucose (eAG) with all Hemoglobin A1c results using the equation derived from a study of 507 normal and diabetic adults. Minority populations were underrepresented and children were not included. (Diabetes Care 31:3700-2809, 2008). The eAG is not equivalent to a fasting glucose. Blood 10/20/2023 11:4 6 AM CDT 10/20/2023 11:59 AM CDT [facility] Michaela l Result Performing Organization Address [facility] de Phone Number [address] [address] * (ABNORMAL) Lipid panel (11/10/2015 2:09 PM CDT) [facility] SCRIBED Cholesterol, Total 236(A) 0 - 200 [facility] SCRIBED HDL 50 40 - 100 [facility] SCRIBED LDL 132(A) 0 - 100 [facility] SCRIBED Triglycerides 270(A) 0 - 150 [facility] Blood specimen (specimen) Historical Provider LAB BLOOD ORDERABLES Edit ed Result - Final Performing Organization Address City/[facility] de Phone Number [facility] from Last 3 Months or Most Recently Relevant to Health Maintenance Insurance BLUE ACC CHOICE OOS BLUE [facility] CHOICE OOS Advance Directives For more information, please contact: [phone] * Full Code (Latest Code Status on File) Date Activated Date Inactivated Comments 10/20/2023 11:12 AM 10/22/2023 11:34 PM Care Teams Speech Pathologist Assistant Relationship Specialty Start Date End Date Josue Lei MD [address] [place] [phone] PCP - General 06/15/16
--- OUTSIDE RECORDS SUMMARY | 2024-05-21 08:01 | XMS_ITS | Continuity of Care Document ---
Author Organization [facility] Address [address] [place] [address] Phone Care Team Providers Care Race Board Attendant Name Role Phone Jay Ramos Unavailable Unavailable [...] Diagnoses Date Provider Providers Copied on Encounter [facility], [address] [place] [address] [address], [place], [place], [id number], [place] tel:[phone] SEC [facility] No Information 2-201 0 Richard Thompson. [address] [place], [address], [place]. tel:[phone] Referring Provider: Jay Berger, [address] [place], [place], [facility]. tel:[phone] [facility], [address] [place] [address] [address], [place], [place], [id number], [place] tel:[phone] [facility] No Information Oct-0 6-200 9 Richard Thompson. [address] [place], [place], [facility], [place]. tel:[phone] Referring Provider: Jay Berger, [address] [place], [place], [facility]. tel:[phone] [facility], [address] [place] [address] [address], [place], [place], [id number], [place] tel:[phone] [facility] [place] No Information 9 David Franciscohil. [address], [place], [place], [facility], [place]. tel:[phone] Office Consultation [facility], [address], [place], [place], [id number], [place] tel:[phone] SEC [facility] No Information 8 Richard Thompson. [address] [place], [place], [facility], [place]. tel:[phone] Referring Provider: Pearl Edwards, [address] [place], [place] [address], [place], [place], [facility]. tel:[phone] Office/outpati ent Visit, [facility], [address] [place] [address] [address], [place], [place], [id number], [place] tel:[phone] SEC [facility] [address] No Information 8 Lucila Kang. [facility] [address] , [address], [place], [place], [facility], [place]. tel:[phone] Office/outpati ent Visit, [facility], [address] [place] [address] [address], [place], [place], [id number], [place] tel:[phone] [facility] [place] No Information 8 Lucila Kang. [address] , [address], [place], [place], [facility], [place]. tel:[phone] Office/outpati ent Visit, [facility], [address] [place] [address] [address], [place], [place], [id number], [place] tel:[phone] [facility] No Information Sep-0 3-200 7 Gaytan Pearl. [address] , [address], [place], [address], . tel:[phone] [facility], [address], [place], [place], [id number], [place] tel:[phone] [facility] No Information Feb-2 6-200 6 Gaytan Pearl. [address] , [address], [place], [address], [place]. tel:[phone] Referring Provider: Josue Lei MD, [address] [place] [address], [place], [address]. tel:[phone] Family History Family Member Type Diagnosis Age [...]
--- OUTSIDE RECORDS SUMMARY | 2024-05-21 08:01 | XMS_ITS | Clinical Summary ---
Author Organization [facility] [address] [place] [address] Care Team Providers Care Health Insurance Adjuster Name Role Phone Josue Lei MD Primary Care Provider [phone] Allergies Active Allergy Reactions Criticality Noted Date [...] Department Care Team Description 03/08/2024 12:39 PM HOT SHOT - 03/08/2024 2:09 PM [facility] Emergency [address] [address] Degeneration of intervertebral disc of lumbar region [...] on file Legal Sex Male 11:13 AM HOT SHOT Gender Identity Not on file Sexual Orientation Not on file Obstetrics History Last Filed Vital Signs Vital Sign Reading Time Taken Comments Blood Pressure 163/80 03/08/2024 11:13 AM HOT SHOT Pulse 99 03/08/2024 11:13 AM HOT SHOT Temperature 36.9 C (98.4 F) 03/08/2024 11:13 AM HOT SHOT Respiratory Rate 18 03/08/2024 11:13 AM HOT SHOT Oxygen Saturation 99% 03/08/2024 11:13 AM HOT SHOT Inhaled Oxygen Concentration - - Weight 86.4 [...] SPINE WO CONTRAST ED 03/08/2024 12:19 PM HOT SHOT EGFR Routine 10/22/2023 7:46 AM CDT HEMOGLOBIN A1C Routine 10/20/2023 11:46 AM CDT LIPID PANEL Routine 11/10/2015 2:09 PM CDT from Last 3 Months or Most Recently Relevant to Health Maintenance Results * CT Lumbar Spine WO Contrast (03/08/2024 12:19 PM HOT SHOT) Anatomical Region Laterality Modality Spine N/A Computed Tomogra phy 03/08/2024 12:3 5 PM HOT SHOT Narrative 03/08/2024 12:42 PM HOT SHOT EXAM DESCRIPTION: CT LUMBAR SPINE WO CONTRAST [...] both sides. Moderate to severe left and xhdr-ie-eetjkbzy right osseous neural foraminal narrowing. L3-L4: Disc [...] arthropathy. No significant osseous spinal canal stenosis. Ondv-fb-xtcpappl right and moderate to severe left osseous [...] signed by Kyle REESE T: Report ID: [id number] Reading Location: [id number] Procedure Note Kyle Iniguez, DO - 03/08/2024 [...] on both sides. Moderate to severeleft and rweg-sa-dojbssqd right osseous neural foraminal narrowing. L3-L4: Disc [...] facet arthropathy. No significant osseous spinal canal stenosis.Lksn-kz-axsazovh right and moderate to severe left osseous [...] signed by Kyle REESE T: Report ID: [id number] Reading Location: [place] [address] Chavez NP IMG CT PROCEDURES Final [...] LAB BLOOD ORDERABLES Michaela l Result RICHARD [address] [facility] [place] [address] * (ABNORMAL) Hemoglobin A1c (10/20/2023 11:46 AM CDT) Hgb A1C 10.4(H) 4.0 - 5.6 % Estimated Average Glucose 252 mg/dL RICHARD NEW Comment: The ADA recommends reporting an estimated Average Glucose (eAG) with all Hemoglobin A1c results using the equation derived from a study of 507 normal and diabetic adults. Minority populations were underrepresented and children were not included. (Diabetes Care 31:9826-5996, 2008). The eAG is not equivalent to a fasting glucose. Blood 10/20/2023 11:4 6 AM CDT 10/20/2023 11:59 AM CDT Anna Villela NP LAB BLOOD ORDERABLES Michaela crespo Result RICHARD [address] [facility] [place] [address] * (ABNORMAL) Lipid panel (11/10/2015 2:09 PM CDT) SCRIBED Cholesterol, Total 236(A) 0 - 200 [facility] SCRIBED HDL 50 40 - 100 [facility] SCRIBED LDL 132(A) 0 - 100 [facility] SCRIBED Triglycerides 270(A) 0 - 150 [facility] Blood specimen (specimen) Historical Provider LAB BLOOD ORDERABLES Edit ed Result - Final [facility] from Last 3 Months or Most Recently Relevant to Health Maintenance Insurance [facility] TRADITIONAL BLUE ACC CHOICE [facility]OS [facility] CHOICE OOS Advance Directives For more information, please contact: [phone] * Full Code (Latest Code Status on File) Date Activated Date Inactivated Comments 10/20/2023 11:12 AM 10/22/2023 11:34 PM Care Teams Health Insurance Adjuster Relationship Specialty Start Date End Date Josue Lei MD [address] [address] PCP - General 06/15/16
[2024-05-21] MEDS: SODIUM CHLORIDE 0.9% 999 ML IV CONT (08:02)
[2024-05-21] MEDS: INSULIN HUMAN REGULAR (*BKC) 100 UNITS/ML 13.6 UNITS IV PUSH (08:03)
[2024-05-21] MEDS: INSULIN HUMAN REGULAR (*BKC) 100 UNITS in SODIUM CHLORIDE 0.9% IV 99 ML 9 UNITS IV CONT (08:04)
[2024-05-21 08:42] LABS: Influenza A QL RT-PCR Negative (Negative); Influenza B QL RT-PCR Negative (Negative); RSV RNA, RT-PCR Negative (Negative); SARS-CoV-2 RNA PCR Negative (Negative)
[2024-05-21 09:22] LABS: Glucose Point of Care 304 mg/dl (65-105)
[2024-05-21 10:04] LABS: Glucose Point of Care 257 mg/dl (65-105)
--- NOTE | 2024-05-21 10:58 | P.CONIN_ITS ---
Assessment and Plan Assessment and plan (1) DKA (diabetic ketoacidosis): Code(s): E11.10 - Type 2 diabetes mellitus with ketoacidosis without coma Status: Acute Assessment and Plan: Pt was given IVF bolus and started on infusion Insulin infusion started and Q1H glucose monitoring is being done Serial labs ordered Replace electrolytes as needed Consult certified breastfeeding educator and dietitian Since patient is asymptomatic will order clear liquid diet (2) Essential (primary) hypertension: Code(s): I10 - Essential (primary) hypertension Status: Acute Assessment and Plan: Continue home medications of Norvasc and it irbesartan (3) Mixed hyperlipidemia: Code(s): E78.2 - Mixed hyperlipidemia Status: Acute Assessment and Plan: Hold statin due to elevated liver enzymes (4) Alcohol abuse: Code(s): F10.10 - Alcohol abuse, uncomplicated Status: Acute Assessment and Plan: Patient drinks 40 drinks a week.. Patient was counseled to quit or at least cut down alcohol intake Thiamine folic acid Monitor for signs of withdrawal (5) Elevated liver enzymes: Code(s): R74.8 - Abnormal levels of other serum enzymes Status: Acute Assessment and Plan: Elevated AST ALT and with slightly elevated bilirubin CT scan shows diffuse fatty infiltration of the liver likely secondary to alcoholic liver disease as patient is heavy alcohol intake Hold statin Monitor level Check right upper quadrant ultrasound and viral panel Plan DVT prophylaxis -Lovenox Nutrition -clear liquid diet Code Status - Full Code Total Critical Care Time - 30 minutes Due to a high probability of clinically significant, life threatening deterioration, the patient required my highest level of preparedness to intervene emergently and I personally spent this critical care time directly and personally managing the patient. This critical care time included obtaining a history; examining the patient; pulse oximetry; ordering and review of studies; arranging urgent treatment with development of a management plan; evaluation of patient's response to treatment; frequent reassessment; and discussions with other providers. It was exclusive of separately billable procedures and treating other patients and teaching time. Please see Assessment and Plan section and the rest of the note for further information on patient assessment and treatment Agricultural Education Teacher Consult Note Consult date: 05/21/24 Reason for consult: DKA HPI: Ivan Quintana is a 59 year old male with past medical history of diabetes on insulin pump and hypertension presented to ER due to him suspecting he was in DKA. Patient states that he is on insulin pump and due to insurance issues he has not had any pods for last 4 days. He has been taking insulin shots with Humalog at home without monitoring any blood sugars as he does not have any supplies. He went to work today and was feeling weak tired and was having cramps in his legs and was worried he was in DKA hence came to the hospital. Her last 4 days he has had nausea but no vomiting. He has had some crampy abdominal pain but no diarrhea or constipation. No dysuria fever hematuria hematochezia melena. He states that he had some cough has he had a URI prior to this episode and that has resolved but cough is still there. All other systems were reviewed and were negative In the ER patient was found to be having DKA. He also had elevated liver enzymes. A CT scan of the abdomen pelvis was done and shows fatty infiltration of the liver. He was given IV fluid bolus and started on IV insulin and needed to ICU for further evaluation management. Review of Systems 2 Review of Systems: All systems reviewed & are unremarkable except as noted in HPI and below (HPI) ON LICENSE OF [facility] Past Medical History Medical History BMI 28.0-28.9,adult BMI 27.0-27.9,adult Overweight (BMI 25.0-29.9) BMI 29.0-29.9,adult Type 1 diabetes mellitus with hyperglycemia BMI 30.0-30.9,adult Encounter for wellness examination in adult Pain in left lower leg BMI 31.0-31.9,adult H/O: HTN (hypertension) Diabetes Benign paroxysmal positional vertigo due to bilateral vestibular disorder Acute bilateral low back pain with left-sided sciatica Gastro-esophageal reflux disease without esophagitis Diabetic retinopathy associated with type 1 diabetes mellitus 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 Mild nonproliferative diabetic retinopathy 12/16/2023. Colon cancer screening Family History Family History Father Cerebrovascular accident Myocardial infarction Social History Social History (Updated 05/21/24 @ 11:10 by Jorge Solis MD) Smoking status: Never smoker Smokeless tobacco user: chewing tobacco Second hand tobacco smoke exposure: No Alcohol intake: current Drinks per week: 40 Alcohol use details: Ring 6 drinks of vodka every day. Estimates intake of 40 drinks a week on average Substance use: never Substance use type: does not use Do You Feel Safe in your Home?: Yes Lack of Transportation: No Lack of Food: Sometimes True Current Housing: I Have Housing Concerned About Future Housing: No Difficulty Paying Gas/Electric Bills: No Difficulty Paying for Meds: No Currently Unemployed: No Education: High School Diploma/GED Difficulty w/ Childcare or Family Care: No Spiritual care concerns: No Meds Home Medications and Allergies Home Medications ?Medication ?Instructions ?Recorded ?Confirmed ?Type insulin lispro 100 unit/mL 100 unit continuous subcutaneous 03/07/23 05/21/24 Rx subcutaneous solution (Humalog infusion DAILY 90 days #90 mL U-100 Insulin) blood-glucose meter,continuous #1 ea 03/14/23 05/21/24 Rx (Dexcom G6 Dental Laboratory Assistant) glucagon 3 mg/actuation nasal spray 3 mg intranasal ONCE PRN 03/14/23 05/21/24 History hypoglycemia ondansetron 4 mg disintegrating 4 mg PO Q6H PRN nausea and 05/27/23 05/21/24 Rx tablet vomiting #10 tabs tadalafil 20 mg tablet (Cialis) 20 mg PO DAILY PRN sexual activity 08/01/23 05/21/24 Rx #18 tabs blood-glucose sensor (Dexcom G6 #9 ea 03/10/24 05/21/24 Rx Sensor device) prednisone 20 mg tablet 40 mg (2 x 20 mg) PO . q.a.m. #14 03/10/24 05/21/24 Rx tabs insulin pump cart,automated,BT #45 ea 03/24/24 Rx amlodipine 10 mg tablet (Norvasc) 10 mg PO DAILY@1700 05/21/24 05/21/24 History atorvastatin 80 mg tablet 80 mg PO DAILY@169905/21/24 05/21/24 History insulin pump cart,auto,BT,G6/7 05/21/24 05/21/24 History (Omnipod 5 G6-G7 Pods (Gen 5) subcutaneous cartridge) irbesartan 300 mg tablet 300 mg PO DAILY@1700 05/21/24 05/21/24 History Allergies Allergy/AdvReac Type Severity Reaction Status Date / Time ciprofloxacin Allergy Intermediate Swelling Verified 05/21/24 09:50 Penicillins Allergy Mild other Verified 05/21/24 09:50 Vital Signs Vital Signs - 24 hr 05/21/24 06:44 05/21/24 08:10 05/21/24 10:00 Temperature 36.9 C 36.6 C Pulse Rate 110 H 114 H 101 H Respiratory Rate 17 23 H 17 Blood Pressure 152/80 H 158/115 H 155/90 H Pulse Oximetry 99 100 99 05/21/24 10:24 Temperature Pulse Rate 108 H Respiratory Rate 16 Blood Pressure Pulse Oximetry 98 Exam 2 Narrative: General: Pt is alert awake and in NAD Lungs/Chest: Trachea central Clear BS B/L, No crackles or wheezing. Cardiac: RRR. Normal S1 S2. No murmurs Circulation: Pedal pulses are intact and symmetrical. Abdomen: Normal bowel sounds.. Soft. NT. ND. Extremities: No clubbing, cyanosis or edema. Warm : Ely in place Neurologic: Follows commands. Moves all 4 extremities PERRL Skin: No Rash Results Labs 05/21/24 06:32 05/21/24 06:32 Labs: Impressions Abdomen/Pelvis CT 05/21/24 07:45 Impression: Diffuse fatty infiltration of the liver. Short CBC 05/21/24 Range/Units 06:32 WBC 12.4 H (4.5-10.0) K/mm3 Hgb 14.4 (14.0-18.0) g/dL Hct 43.7 (42.0-52.0) % Plt Count 408 H (150-375) k/mm3 BMP 05/21/24 06:32 Sodium 133 L Potassium 5.1 H Chloride 96 L Carbon Dioxide 14 L BUN 14 D Creatinine 0.68 L Glucose 422 H Calcium 9.6 Liver Function 05/21/24 Range/Units 06:32 Total Bilirubin 1.4 H (0.2-1.3) mg/dL AST 259 H (17-59) U/L ALT 125 H (6-50) U/L Alkaline Phosphatase 127 H (38-126) U/L Albumin 4.6 (3.5-5.1) g/dL Urine 05/21/24 Range/Units 07:12 Urine Color Yellow (Yellow) Urine Appearance Clear (Clear) Urine pH 5.5 (5.0-9.0) Ur Specific [place] 1.027 (1.001-1.035) Urine Protein 1+ H (Negative) mg/dL Urine Glucose (UA) 3+ H (Negative) mg/dL Quality VTE Prophylaxis VTE prophylaxis: pharmacologic ordered Hospitalist MIPS Advance Care Plan I have confirmed that the patient's Advanced Care Plan is present, code status is documented, or surrogate decision maker is listed in patient medical record.: Yes Medication Reconciliation I have utilized all available resources to obtain, update and review the patients current medications (includes all prescriptions, OTC, herbals, cannabis, and nutritional supplements).: Yes
[2024-05-21 11:06] LABS: Glucose Point of Care 220 mg/dl (65-105)
[2024-05-21] MEDS: KCL 20 MEQ/D5/0.45% SOD CHL 1,000 ML 150 ML IV CONT ×2 (11:46→18:17)
[2024-05-21] MEDS: ENOXAPARIN 40 MG/0.4 ML SYRINGE SUB-Q (11:47)
[2024-05-21 12:09] LABS: Glucose Point of Care 211 mg/dl (65-105)
--- NOTE | 2024-05-21 12:11 | PM.IMHP ---
H&P: HPI History of Present Illness Date/Time: 05/21/24 12:11 Chief Complaint: Diabetic Complication Narrative: 59 y/o M presents here with diabetes complications with PMH of DM1, GERD, diabetic retinopathy, cleep apnea (not on CPAP) and HTN. The patient presents here from home for further evaluation of diabetic complications. He reports he has been out of his Omnipod for the past 4 days. He was unable to fill this prescription due to a lapse in medical insurance. Insurance was reinstated 05/16. He reports the prescription would have cost 1,500 dollars for 15. Has since developed shortness of breath, nausea, cramping in his lower extremities, and feels foggy . Due to prescription running out the patient reports he has been substituting this with Humalog SQ 6-8 times per day. He was taking the injections when he felt his blood sugar going high. Meter is currently broken and has not had a script for a replacement. Denies fever, chills, cough, congestion. Previous hx of daily ETOH, 6-8 drinks daily. But is motivated to quit after he was informed about his LFTs and fatty liver on imaging. Plans on quitting cold turkey. Initial VS at presentation: S 98.5? F, HR 110, RR 17, 152/80, 99% on RA. ED workup showed: WBC 12.4, no anemia, sodium 133, potassium 5.1, creatinine 0.68 and GFR >60, initial glucose 422, A1c 8.4%, elevated LFTs, beta hydroxy 7.79, and UA showed 1+ protein/3+ glucose/4+ ketones/2+ blood. Viral PCR negative. CT of the abdomen/pelvis showed diffuse fatty infiltration of the liver. Review of Systems Review of Systems: All systems reviewed & are unremarkable except as noted in HPI and below [facility] Past Medical History Medical History Alcohol abuse Mixed hyperlipidemia LDL 149 with HDL 61 on 01/18/2022. 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 Mild nonproliferative diabetic retinopathy 12/16/2023. Colon cancer screening Family History Family History Father Cerebrovascular accident Myocardial infarction Social History Social History Smoking status: Never smoker Smokeless tobacco user: chewing tobacco Second hand tobacco smoke exposure: No Alcohol intake: current Drinks per week: 40 Alcohol use details: Ring 6 drinks of vodka every day. Estimates intake of 40 drinks a week on average Substance use: never Substance use type: does not use Do You Feel Safe in your Home?: Yes Lack of Transportation: No Lack of Food: Sometimes True Current Housing: I Have Housing Concerned About Future Housing: No Difficulty Paying Gas/Electric Bills: No Difficulty Paying for Meds: No Currently Unemployed: No Education: High School Diploma/GED Difficulty w/ Childcare or Family Care: No Spiritual care concerns: No Meds Home Medications and Allergies Home Medications ?Medication ?Instructions ?Recorded ?Confirmed ?Type insulin lispro 100 unit/mL 100 unit continuous subcutaneous 03/07/23 05/21/24 Rx subcutaneous solution (Humalog infusion DAILY 90 days #90 mL U-100 Insulin) blood-glucose meter,continuous #1 ea 03/14/23 05/21/24 Rx (Dexcom G6 Placement Specialist) glucagon 3 mg/actuation nasal spray 3 mg intranasal ONCE PRN 03/14/23 05/21/24 History hypoglycemia ondansetron 4 mg disintegrating 4 mg PO Q6H PRN nausea and 05/27/23 05/21/24 Rx tablet vomiting #10 tabs tadalafil 20 mg tablet (Cialis) 20 mg PO DAILY PRN sexual activity 08/01/23 05/21/24 Rx #18 tabs blood-glucose sensor (Dexcom G6 #9 ea 03/10/24 05/21/24 Rx Sensor device) prednisone 20 mg tablet 40 mg (2 x 20 mg) PO . q.a.m. #14 03/10/24 05/21/24 Rx tabs insulin pump cart,automated,BT #45 ea 03/24/24 Rx amlodipine 10 mg tablet (Norvasc) 10 mg PO DAILY@1700 05/21/24 05/21/24 History atorvastatin 80 mg tablet 80 mg PO DAILY@1700 05/21/24 05/21/24 History insulin pump cart,auto,BT,G6/7 05/21/24 05/21/24 History (Omnipod 5 G6-G7 Pods (Gen 5) subcutaneous cartridge) irbesartan 300 mg tablet 300 mg PO DAILY@1700 05/21/24 05/21/24 History Allergies Allergy/AdvReac Type Severity Reaction Status Date / Time ciprofloxacin Allergy Intermediate Swelling Verified 05/21/24 09:50 Penicillins Allergy Mild other Verified 05/21/24 09:50 Vital Signs Vital Signs - 24 hr 05/21/24 06:44 05/21/24 08:10 05/21/24 10:00 Temperature 98.5 F 97.9 F Pulse Rate 110 H 114 H 101 H Respiratory Rate 17 23 H 17 Blood Pressure 152/80 H 158/115 H 155/90 H Pulse Oximetry 99 100 99 05/21/24 10:24 Temperature Pulse Rate 108 H Respiratory Rate 16 Blood Pressure Pulse Oximetry 98 Exam Const: General: comfortable and no acute distress Other: , male, nontoxic appearance, husam complexion. HENMT: Face/Nose/Sinus: Normal nares present Mouth: Yes moist mucous membranes Eyes: General: appearance normal, both eyes and all related structures Sclera: sclerae normal Pupils: Equal, round and reactive pupils present EOM: EOMs intact bilaterally Resp: Effort & Inspection: normal respiratory effort Auscultation: clear to auscultation bilaterally Cardio: Rate: regular rate Rhythm: regular rhythm Other: S1-S2 present without murmur, rub, ectopy GI: Other: Abdomen rounded, soft, nontender. Normoactive bowel sounds in all quadrants. Skin: General skin exam: no rashes or lesions noted Wounds: no wounds Other: +Husam complexion Neuro: Speech: normal speech Motor exam (neuro): 5/5 motor strength present throughout Sensory Exam: normal sensation Other: A&O x4. No agitation. No tremor on exam. Extrem: General: normal to inspection Psych: Mental Status: mental status grossly normal Affect: Sad affect present Other: Good insight and judgment, pleasant H&P: Results Labs Labs: Short CBC 05/21/24 Range/Units 06:32 WBC 12.4 H (4.5-10.0) K/mm3 Hgb 14.4 (14.0-18.0) g/dL Hct 43.7 (42.0-52.0) % Plt Count 408 H (150-375) k/mm3 BMP 05/21/24 06:32 Sodium 133 L Potassium 5.1 H Chloride 96 L Carbon Dioxide 14 L BUN 14 D Creatinine 0.68 L Glucose 422 H Calcium 9.6 Liver Function 05/21/24 Range/Units 06:32 Total Bilirubin 1.4 H (0.2-1.3) mg/dL AST 259 H (17-59) U/L ALT 125 H (6-50) U/L Alkaline Phosphatase 127 H (38-126) U/L Albumin 4.6 (3.5-5.1) g/dL Urine 05/21/24 Range/Units 07:12 Urine Color Yellow (Yellow) Urine Appearance Clear (Clear) Urine pH 5.5 (5.0-9.0) Ur Specific Auxier 1.027 (1.001-1.035) Urine Protein 1+ H (Negative) mg/dL Urine Glucose (UA) 3+ H (Negative) mg/dL Assessment and Plan Assessment and plan (1) DKA (diabetic ketoacidosis): Qualifiers: Diabetes mellitus complication detail: without coma Diabetes mellitus type: type 1 Qualified Code(s): E10.10 - Type 1 diabetes mellitus with ketoacidosis without coma Code(s): E11.10 - Type 2 diabetes mellitus with ketoacidosis without coma Status: Acute Assessment and Plan: - history of type 1 diabetes - initial glucose 422 - labs: WBC 12.4, sodium 133, potassium 5.1, gap 23, beta hydroxy 7.79, magnesium 1.6, A1c 8.4% - trend BMP Q4H, repeat Mag and Phos - DKA protocol initiated - IV fluids: given 1.8L in ED. - insulin gtt currently running at 8.5 u/hr - clear liquid diet - hold home medications - assembly machine tool setter consulted - conservation scientist consulted - caser shoe parts consulted (2) Elevated liver enzymes: Code(s): R74.8 - Abnormal levels of other serum enzymes Status: Acute Assessment and Plan: - CT abd/pelvis: diffuse fatty infiltration of the liver - total bilirubin 1.4, AST 259, ALT 125, alk-phos 127 - hold statin - check [place].S. of RUQ - trend LFTs (3) Alcohol abuse: Code(s): F10.10 - Alcohol abuse, uncomplicated Status: Acute Assessment and Plan: - daily ETOH use: 6-8 drinks - last drink: 05/19/24 - plan for cold turkey cessation after discovery of fatty liver on CT today - denies withdrawal symptoms, no previous history of withdrawal - monitor (4) Essential (primary) hypertension: Code(s): I10 - Essential (primary) hypertension Status: Chronic Assessment and Plan: - chronic, currently 155/90 - continue home medications: amlodipine 10 mg daily, irbesartan 300 mg daily - monitor (5) Obstructive sleep apnea: Code(s): G47.33 - Obstructive sleep apnea (adult) (pediatric) Status: Chronic Assessment and Plan: - continue home CPAP Plan Diet: Clear liquid GI Prophylaxis: Not currently indicated DVT Prophylaxis: Lovenox SQ Lines: Peripheral Code Status: Full code Quality VTE Prophylaxis VTE prophylaxis: pharmacologic ordered Critical Care Time: I personally spent 35 minutes of direct patient care including (but not limited to) the physical examination, decision-making, bedside evaluation, review of medical records, review of labs and imaging, discussion with nursing staff and other providers for collaborative, critical care management of this patient. Hospitalist [facility] Advance Care Plan I have confirmed that the patient's Advanced Care Plan is present, code status is documented, or surrogate decision maker is listed in patient medical record.: Yes Medication Reconciliation I have utilized all available resources to obtain, update and review the patients current medications (includes all prescriptions, OTC, herbals, cannabis, and nutritional supplements).: Yes
[2024-05-21 12:37] LABS: Anion Gap 18 mmol/L (4-12); Blood Urea Nitrogen 13 mg/dL (9-20); Calcium 9.2 mg/dL (8.4-10.2); Carbon Dioxide 16 mmol/L (22-30); Chloride 102 mmol/L (98-107); Estimated CRCL calculation 125 ml/min; Estimated Glomerular Filt Rate > 60; Glucose 238 mg/dL (65-110); Potassium 4.3 mmol/L (3.4-5.0); Sodium 136 mmol/L (137-145)
[2024-05-21 12:55] LABS: MRSA (PCR) NOT DETECTED (NOT DETECTE)
--- NOTE | 2024-05-21 13:04 | ADMGEN ---
This patient, Ivan Quintana, was admitted to Intensive Care Unit-10 at approximately 0945. Patient/family oriented to hospital policies and general routines including ID bracelet, bed and alarms, visiting hours, pain management, procedures, bathroom and other care routines, personal items, smoking policy, room service/diet, and visiting hours. Information on how to activate the Rapid Response Team has been discussed. Patient/Family are encouraged to report perceived risks to care and to ask questions if they do not understand what they are told or what they should do.
[2024-05-21 13:12] LABS: Glucose Point of Care 305 mg/dl (65-105)
[2024-05-21 14:02] LABS: Glucose Point of Care 315 mg/dl (65-105)
[2024-05-21 14:42] LABS: Hepatitis B Surface Antigen Negative (Negative)
[2024-05-21 14:48] LABS: HAV RESULT Negative (Negative); Hepatitis B Core IgM Result Negative (Negative)
[2024-05-21 15:00] LABS: Hepatitis C Virus Antibody Negative (Negative)
[2024-05-21 15:17] LABS: Glucose Point of Care 263 mg/dl (65-105)
[2024-05-21 16:13] LABS: Anion Gap 11 mmol/L (4-12); Blood Urea Nitrogen 11 mg/dL (9-20); Calcium 8.9 mg/dL (8.4-10.2); Carbon Dioxide 18 mmol/L (22-30); Chloride 103 mmol/L (98-107); Estimated CRCL calculation 151 ml/min; Estimated Glomerular Filt Rate > 60; Glucose 239 mg/dL (65-110); Potassium 3.9 mmol/L (3.4-5.0); Sodium 132 mmol/L (137-145)
[2024-05-21] MEDS: IRBESARTAN 150 MG TABLET 300 MG PO (16:26)
[2024-05-21] MEDS: amLODIPine BESYLATE 10 MG TABLET PO (16:26)
[2024-05-21 16:35] LABS: Glucose Point of Care 187 mg/dl (65-105)
[2024-05-21 17:10] LABS: Glucose Point of Care 150 mg/dl (65-105)
[2024-05-21 18:03] LABS: Glucose Point of Care 178 mg/dl (65-105)
[2024-05-21] MEDS: INSULIN HUMAN REGULAR (*BKC) 100 UNITS in SODIUM CHLORIDE 0.9% IV 99 ML IV CONT (18:18)
[2024-05-21 19:03] LABS: Glucose Point of Care 182 mg/dl (65-105)
[2024-05-21 20:02] LABS: Anion Gap 12 mmol/L (4-12); Blood Urea Nitrogen 9 mg/dL (9-20); Calcium 9.1 mg/dL (8.4-10.2); Carbon Dioxide 18 mmol/L (22-30); Chloride 104 mmol/L (98-107); Estimated CRCL calculation 151 ml/min; Estimated Glomerular Filt Rate > 60; Glucose 196 mg/dL (65-110); Potassium 4.2 mmol/L (3.4-5.0); Sodium 134 mmol/L (137-145)
[2024-05-21 20:06] LABS: Glucose Point of Care 202 mg/dl (65-105)
[2024-05-21 20:59] LABS: Glucose Point of Care 211 mg/dl (65-105)
[2024-05-21 21:59] LABS: Glucose Point of Care 213 mg/dl (65-105)
[2024-05-21 23:02] LABS: Glucose Point of Care 242 mg/dl (65-105)
[2024-05-21 23:41] LABS: Anion Gap 11 mmol/L (4-12); Blood Urea Nitrogen 8 mg/dL (9-20); Calcium 8.7 mg/dL (8.4-10.2); Carbon Dioxide 19 mmol/L (22-30); Chloride 104 mmol/L (98-107); Estimated CRCL calculation 154 ml/min; Estimated Glomerular Filt Rate > 60; Glucose 243 mg/dL (65-110); Potassium 3.8 mmol/L (3.4-5.0); Sodium 134 mmol/L (137-145)
[2024-05-22] VITALS (12 sets, daily range): BP systolic 122–158; BP diastolic 65–92; PULSE 85–114; RESP 15–22; TEMP 36.8–37; O2SAT 96–98; BMI 27.6
[2024-05-22 00:03] LABS: Glucose Point of Care 250 mg/dl (65-105)
[2024-05-22 00:57] LABS: Glucose Point of Care 208 mg/dl (65-105)
[2024-05-22] MEDS: KCL 20 MEQ/D5/0.45% SOD CHL 1,000 ML 150 ML IV CONT ×2 (01:27→09:15)
[2024-05-22 02:04] LABS: Glucose Point of Care 235 mg/dl (65-105)
[2024-05-22 03:03] LABS: Glucose Point of Care 199 mg/dl (65-105)
[2024-05-22 03:39] LABS: Hemoglobin 13.9 g/dL (14.0-18.0); Mean Corpuscular HGB Conc 34.8 g/dl (32-36); Mean Corpuscular Hemoglobin 32.2 pg (26-34); Mean Corpuscular Volume 92.6 fl (80-100); Platelet Count Result 329 k/mm3 (150-375); Red Blood Count 4.32 M/mm3 (4.6-6.20); Red Cell Distribution Width 12.3 % (11.5-14.5); White Blood Count 8.6 K/mm3 (4.5-10.0)
[2024-05-22 03:54] LABS: Alanine Aminotransferase 115 U/L (6-50); Albumin Level 3.9 g/dL (3.5-5.1); Alkaline Phosphatase 92 U/L (38-126); Anion Gap 10 mmol/L (4-12); Aspartate Amino Transferase 200 U/L (17-59); Bilirubin,Total 1.3 mg/dL (0.2-1.3); Blood Urea Nitrogen 6 mg/dL (9-20); Calcium 8.8 mg/dL (8.4-10.2); Carbon Dioxide 21 mmol/L (22-30); Chloride 105 mmol/L (98-107); Estimated CRCL calculation 167 ml/min; Estimated Glomerular Filt Rate > 60; Glucose 200 mg/dL (65-110); Magnesium 1.9 mg/dL (1.6-2.3); Potassium 3.6 mmol/L (3.4-5.0); Sodium 136 mmol/L (137-145)
[2024-05-22 04:03] LABS: Glucose Point of Care 196 mg/dl (65-105)
[2024-05-22] MEDS: ACETAMINOPHEN 325 MG TABLET 650 MG PO (04:05)
[2024-05-22 05:01] LABS: Glucose Point of Care 219 mg/dl (65-105)
[2024-05-22 05:57] LABS: Glucose Point of Care 232 mg/dl (65-105)
[2024-05-22 06:57] LABS: Glucose Point of Care 211 mg/dl (65-105)
[2024-05-22 07:52] LABS: Anion Gap 13 mmol/L (4-12); Blood Urea Nitrogen 6 mg/dL (9-20); Carbon Dioxide 19 mmol/L (22-30); Chloride 102 mmol/L (98-107); Estimated CRCL calculation 160 ml/min; Estimated Glomerular Filt Rate > 60; Glucose 273 mg/dL (65-110); Sodium 134 mmol/L (137-145)
--- NOTE | 2024-05-22 08:56 | WPDINTPN ---
Progress Note: A&P Assessment and Plan (1) DKA (diabetic ketoacidosis): Qualifiers: Diabetes mellitus complication detail: without coma Diabetes mellitus type: type 1 Qualified Code(s): E10.10 - Type 1 diabetes mellitus with ketoacidosis without coma Code(s): E11.10 - Type 2 diabetes mellitus with ketoacidosis without coma Status: Acute Assessment and Plan: Pt was given IVF bolus and started on infusion Insulin infusion started and Q1H glucose monitoring is being done Serial labs ordered Replace electrolytes as needed Consult paraeducator and dietitian Since patient is asymptomatic will clear liquid diet Transition to subcutaneous insulin once anion gap is closed (2) Essential (primary) hypertension: Code(s): I10 - Essential (primary) hypertension Status: Chronic Assessment and Plan: Continue home medications of Norvasc and it irbesartan (3) Mixed hyperlipidemia: Code(s): E78.2 - Mixed hyperlipidemia Status: Inactive Assessment and Plan: Hold statin due to elevated liver enzymes (4) Alcohol abuse: Code(s): F10.10 - Alcohol abuse, uncomplicated Status: Acute Assessment and Plan: Patient drinks 40 drinks a week.. Patient was counseled to quit or at least cut down alcohol intake Thiamine folic acid Monitor for signs of withdrawal (5) Elevated liver enzymes: Code(s): R74.8 - Abnormal levels of other serum enzymes Status: Acute Assessment and Plan: Elevated AST ALT and with slightly elevated bilirubin CT scan shows diffuse fatty infiltration of the liver likely secondary to alcoholic liver disease as patient is heavy alcohol intake Hold statin Monitor level Negative right upper quadrant ultrasound and and negative viral panel Plan DVT prophylaxis -Lovenox Nutrition -clear liquid diet Code Status - Full Code Subjective Date/time seen: 05/22/24 Overnight events reviewed. Afebrile On room air. Tolerating clear liquid diet. Continues to be on insulin infusion. On room air Other Vitals acceptable Denies any complaints. Patient denies fever, chest pain, shortness of breath, cough, nausea vomiting, abdominal pain,, diarrhea, headache or constipation. All other systems were reviewed and were negative Review of Systems Review of Systems: All systems reviewed & are unremarkable except as noted in HPI and below (HPI) Exam Narrative: General: Pt is alert awake and in NAD Lungs/Chest: Trachea central Clear BS B/L, No crackles or wheezing. Cardiac: RRR. Normal S1 S2. No murmurs Circulation: Pedal pulses are intact and symmetrical. Abdomen: Normal bowel sounds.. Soft. NT. ND. Extremities: No clubbing, cyanosis or edema. Warm : Ely in place Neurologic: Follows commands. Moves all 4 extremities PERRL Skin: No Rash Objective Data Vital Signs Vital Signs: Vital Signs - 24 hr 05/21/24 10:00 05/21/24 10:00 05/21/24 10:24 Temperature 36.6 C Pulse Rate 101 H 102 H 108 H Respiratory Rate 17 16 Blood Pressure 155/90 H Pulse Oximetry 99 98 Oxygen Delivery 05/21/24 12:00 05/21/24 12:00 05/21/24 12:00 Temperature 36.7 C Pulse Rate 106 H 117 H Respiratory Rate 163 H Blood Pressure 158/81 H Pulse Oximetry 99 Oxygen Delivery Room Air 05/21/24 14:00 05/21/24 14:00 05/21/24 16:00 Temperature 36.8 C Pulse Rate 106 H 105 H Respiratory Rate 19 Blood Pressure 164/81 H Pulse Oximetry 99 Oxygen Delivery Room Air 05/21/24 16:00 05/21/24 16:00 05/21/24 18:00 Temperature 36.8 C Pulse Rate 95 95 91 Respiratory Rate 16 Blood Pressure 147/84 H Pulse Oximetry 99 Oxygen Delivery 05/21/24 18:00 05/21/24 20:00 05/21/24 20:00 Temperature 36.8 C Pulse Rate 91 96 96 Respiratory Rate 16 20 Blood Pressure 149/95 H 145/76 H Pulse Oximetry 95 96 Oxygen Delivery 05/21/24 20:37 05/21/24 22:00 05/21/24 22:00 Temperature 36.6 C Pulse Rate 89 89 Respiratory Rate 20 Blood Pressure 136/83 Pulse Oximetry 97 96 Oxygen Delivery Room Air 05/22/24 00:00 05/22/24 00:00 05/22/24 02:00 Temperature 36.8 C Pulse Rate 97 95 85 Respiratory Rate 22 H 15 Blood Pressure 150/89 H 142/84 H Pulse Oximetry 98 96 Oxygen Delivery 05/22/24 02:00 05/22/24 04:00 05/22/24 04:00 Temperature 36.9 C Pulse Rate 85 99 100 Respiratory Rate 20 Blood Pressure 145/81 H Pulse Oximetry 98 Oxygen Delivery 05/22/24 06:00 05/22/24 06:00 05/22/24 08:00 Temperature Pulse Rate 96 96 Respiratory Rate 21 H Blood Pressure 142/89 H Pulse Oximetry 97 Oxygen Delivery Room Air 05/22/24 08:00 05/22/24 08:00 Temperature 36.9 C Pulse Rate 97 98 Respiratory Rate 18 Blood Pressure 150/74 H Pulse Oximetry 97 Oxygen Delivery Intake/Output Intake/Output: Intake & Output 05/19/24 05/20/24 05/21/24 05/22/24 23:59 23:59 23:59 23:59 Intake Total 3250.7 1018.0 Output Total 1750 1950 Balance 1500.7 -932.0 Meds/Results Medications: Active Medications Generic Name Dose Route Start Last Admin Trade Name Freq PRN Reason Stop Dose Admin Acetaminophen 650 mg 05/21/24 18:43 05/22/24 04:05 Acetaminophen 325 Mg Tablet PO 650 mg Q4H PRN Administration Pain Amlodipine Besylate 10 mg 05/21/24 17:00 05/21/24 16:26 Amlodipine Besylate 10 Mg Tablet PO 10 mg DAILY@1700 GENIA Administration Dextrose 12.5 gm 05/21/24 07:27 Dextrose 50% 25 Gm/50 Ml Syringe IV PUSH PRN PRN Hypoglycemia Protocol Enoxaparin Sodium 40 mg 05/21/24 10:50 05/21/24 11:47 Enoxaparin 40 Mg/0.4 Ml Syringe SUB-Q 40 mg DAILY GENIA Administration Folic Acid 1 mg 05/22/24 09:00 Folic Acid 1 Mg Tablet PO DAILY GENIA Glucagon 1 mg 05/21/24 07:27 Glucagon For Inj 1 Mg Vial IM PRN PRN Hypoglycemia Protocol Glucose 15 gm 05/21/24 07:27 Glucose Oral Gel 15 Gm Of Glucse In 37.5 Gm Tube PO PRN PRN Hypoglycemia Protocol Insulin Human Regular 100 100 mls @ 1 mls/hr 05/21/24 08:00 05/22/24 07:00 units/ Sodium Chloride IV CONT 1 units/hr .Q24H GENIA 1 mls/hr Titration Protocol 1 UNITS/HR Dextrose 1,000 mls @ 100 mls/hr 05/21/24 07:27 Dextrose 5% 1,000 Ml IVPB PRN PRN Hypoglycemia Protocol Potassium Chloride/Dextrose/Sod Cl 1,000 mls @ 150 mls/hr 05/21/24 11:35 05/22/24 01:27 Kcl 20 Meq/D5/0.45% Sod Chl IV CONT 150 mls/hr .Q6H40M GENIA Administration Dextrose/Sodium Chloride 1,000 mls @ 150 mls/hr 05/21/24 11:35 05/21/24 18:21 Dextrose 5% Sodium Chloride 0.45% IV CONT Not Given .Q6H40M GENIA Sodium Chloride 1,000 mls @ 150 mls/hr 05/22/24 00:35 Normal Saline Iv IV CONT .Q6H40M GENIA Irbesartan 300 mg 05/21/24 17:00 05/21/24 16:26 Irbesartan 150 Mg Tablet PO 300 mg DAILY@1700 GENIA Administration Thiamine HCl 100 mg 05/22/24 09:00 Thiamine Hcl 100 Mg Tablet PO QAM [facility] Radiology Results: ITS Impressions Abdomen/Pelvis CT 05/21/24 07:45 Impression: Diffuse fatty infiltration of the liver. Abdomen Ultrasound 05/21/24 12:35 IMPRESSION: 1. Normal right upper quadrant ultrasound. Labs Labs: Laboratory Results - last 24 hr 05/21/24 05/21/24 05/21/24 09:10 10:02 11:04 WBC RBC Hgb Hct MCV MCH MCHC RDW Plt Count MPV Sodium Potassium Chloride Carbon Dioxide Anion Gap BUN Creatinine Estim Creat Clear Calc Estimated GFR Glucose POC Capillary Glucose 304 H 257 H 220 H Calcium Magnesium Total Bilirubin AST ALT Alkaline Phosphatase Total Protein Albumin Nasal MRSA (PCR) Hepatitis A IgM Ab Hep Bs Antigen Hep B Core IgM Ab Hepatitis C Ab Screen 05/21/24 05/21/24 05/21/24 11:10 11:35 12:03 WBC RBC Hgb Hct MCV MCH MCHC RDW Plt Count MPV Sodium 136 L Potassium 4.3 Chloride 102 Carbon Dioxide 16 L Anion Gap 18 H BUN 13 Creatinine 0.58 L Estim Creat Clear Calc 125 Estimated GFR > 60 Glucose 238 H POC Capillary Glucose 211 H Calcium 9.2 Magnesium Total Bilirubin AST ALT Alkaline Phosphatase Total Protein Albumin Nasal MRSA (PCR) Not detected Hepatitis A IgM Ab Negative Hep Bs Antigen Negative Hep B Core IgM Ab Negative Hepatitis C Ab Screen Negative 05/21/24 05/21/24 05/21/24 13:09 13:59 15:15 WBC RBC Hgb Hct MCV MCH MCHC RDW Plt Count MPV Sodium Potassium Chloride Carbon Dioxide Anion Gap BUN Creatinine Estim Creat Clear Calc Estimated GFR Glucose POC Capillary Glucose 305 H 315 H 263 H Calcium Magnesium Total Bilirubin AST ALT Alkaline Phosphatase Total Protein Albumin Nasal MRSA (PCR) Hepatitis A IgM Ab Hep Bs Antigen Hep B Core IgM Ab Hepatitis C Ab Screen 05/21/24 05/21/24 05/21/24 15:46 16:26 17:07 WBC RBC Hgb Hct MCV MCH MCHC RDW Plt Count MPV Sodium 132 L Potassium 3.9 Chloride 103 Carbon Dioxide 18 L Anion Gap 11 BUN 11 Creatinine 0.47 L Estim Creat Clear Calc 151 Estimated GFR > 60 Glucose 239 H POC Capillary Glucose 187 H 150 H Calcium 8.9 Magnesium Total Bilirubin AST ALT Alkaline Phosphatase Total Protein Albumin Nasal MRSA (PCR) Hepatitis A IgM Ab Hep Bs Antigen Hep B Core IgM Ab Hepatitis C Ab Screen 05/21/24 05/21/24 05/21/24 18:00 19:01 19:46 WBC RBC Hgb Hct MCV MCH MCHC RDW Plt Count MPV Sodium 134 L Potassium 4.2 Chloride 104 Carbon Dioxide 18 L Anion Gap 12 BUN 9 Creatinine 0.47 L Estim Creat Clear Calc 151 Estimated GFR > 60 Glucose 196 H POC Capillary Glucose 178 H 182 H Calcium 9.1 Magnesium Total Bilirubin AST ALT Alkaline Phosphatase Total Protein Albumin Nasal MRSA (PCR) Hepatitis A IgM Ab Hep Bs Antigen Hep B Core IgM Ab Hepatitis C Ab Screen 05/21/24 05/21/24 05/21/24 19:58 20:57 21:56 WBC RBC Hgb Hct MCV MCH MCHC RDW Plt Count MPV Sodium Potassium Chloride Carbon Dioxide Anion Gap BUN Creatinine Estim Creat Clear Calc Estimated GFR Glucose POC Capillary Glucose 202 H 211 H 213 H Calcium Magnesium Total Bilirubin AST ALT Alkaline Phosphatase Total Protein Albumin Nasal MRSA (PCR) Hepatitis A IgM Ab Hep Bs Antigen Hep B Core IgM Ab Hepatitis C Ab Screen 05/21/24 05/21/24 05/21/24 23:00 23:25 23:53 WBC RBC Hgb Hct MCV MCH MCHC RDW Plt Count MPV Sodium 134 L Potassium 3.8 Chloride 104 Carbon Dioxide 19 L Anion Gap 11 BUN 8 L Creatinine 0.46 L Estim Creat Clear Calc 154 Estimated GFR > 60 Glucose 243 H POC Capillary Glucose 242 H 250 H Calcium 8.7 Magnesium Total Bilirubin AST ALT Alkaline Phosphatase Total Protein Albumin Nasal MRSA (PCR) Hepatitis A IgM Ab Hep Bs Antigen Hep B Core IgM Ab Hepatitis C Ab Screen 05/22/24 05/22/24 05/22/24 00:54 01:59 03:00 WBC RBC Hgb Hct MCV MCH MCHC RDW Plt Count MPV Sodium Potassium Chloride Carbon Dioxide Anion Gap BUN Creatinine Estim Creat Clear Calc Estimated GFR Glucose POC Capillary Glucose 208 H 235 H 199 H Calcium Magnesium Total Bilirubin AST ALT Alkaline Phosphatase Total Protein Albumin Nasal MRSA (PCR) Hepatitis A IgM Ab Hep Bs Antigen Hep B Core IgM Ab Hepatitis C Ab Screen 05/22/24 05/22/24 05/22/24 03:25 03:59 04:59 WBC 8.6 RBC 4.32 L Hgb 13.9 L Hct 40.0 L MCV 92.6 MCH 32.2 MCHC 34.8 RDW 12.3 Plt Count 329 MPV 9.0 Sodium 136 L Potassium 3.6 Chloride 105 Carbon Dioxide 21 L Anion Gap 10 BUN 6 L Creatinine 0.42 L Estim Creat Clear Calc 167 Estimated GFR > 60 Glucose 200 H POC Capillary Glucose 196 H 219 H Calcium 8.8 Magnesium 1.9 Total Bilirubin 1.3 AST 200 H ALT 115 H Alkaline Phosphatase 92 Total Protein 7.0 Albumin 3.9 Nasal MRSA (PCR) Hepatitis A IgM Ab Hep Bs Antigen Hep B Core IgM Ab Hepatitis C Ab Screen 05/22/24 05/22/24 05/22/24 05:56 06:55 07:38 WBC RBC Hgb Hct MCV MCH MCHC RDW Plt Count MPV Sodium 134 L Potassium 4.0 Chloride 102 Carbon Dioxide 19 L Anion Gap 13 H BUN 6 L Creatinine 0.44 L Estim Creat Clear Calc 160 Estimated GFR > 60 Glucose 273 H POC Capillary Glucose 232 H 211 H Calcium 9.0 Magnesium Total Bilirubin AST ALT Alkaline Phosphatase Total Protein Albumin Nasal MRSA (PCR) Hepatitis A IgM Ab Hep Bs Antigen Hep B Core IgM Ab Hepatitis C Ab Screen Quality VTE Prophylaxis VTE prophylaxis: pharmacologic ordered
[2024-05-22] MEDS: THIAMINE HCL 100 MG TABLET PO (09:14)
[2024-05-22] MEDS: FOLIC ACID 1 MG TABLET PO (09:14)
[2024-05-22 09:27] LABS: Glucose Point of Care 370 mg/dl (65-105)
[2024-05-22 10:12] LABS: Glucose Point of Care 338 mg/dl (65-105)
[2024-05-22 11:04] LABS: Glucose Point of Care 303 mg/dl (65-105)
[2024-05-22 11:37] LABS: Anion Gap 15 mmol/L (4-12); Blood Urea Nitrogen 5 mg/dL (9-20); Calcium 9.2 mg/dL (8.4-10.2); Carbon Dioxide 19 mmol/L (22-30); Chloride 100 mmol/L (98-107); Estimated CRCL calculation 160 ml/min; Estimated Glomerular Filt Rate > 60; Glucose 310 mg/dL (65-110); Sodium 134 mmol/L (137-145)
[2024-05-22 12:18] LABS: Glucose Point of Care 277 mg/dl (65-105)
[2024-05-22 13:05] LABS: Glucose Point of Care 280 mg/dl (65-105)
--- NOTE | 2024-05-22 14:02 | PM.IMPN ---
Progress Note: A&P Assessment and Plan (1) DKA (diabetic ketoacidosis): Qualifiers: Diabetes mellitus complication detail: without coma Diabetes mellitus type: type 1 Qualified Code(s): E10.10 - Type 1 diabetes mellitus with ketoacidosis without coma Code(s): E11.10 - Type 2 diabetes mellitus with ketoacidosis without coma Status: Acute Assessment and Plan: s/p IVF and insulin infusion COntinue Subq regimen and monitor one more day patient noted he ran out of his insulin pump supplies because of insurance and not has insurance (2) Essential (primary) hypertension: Code(s): I10 - Essential (primary) hypertension Status: Chronic Assessment and Plan: Continue home medications of Norvasc and it irbesartan (3) Mixed hyperlipidemia: Code(s): E78.2 - Mixed hyperlipidemia Status: Inactive Assessment and Plan: Hold statin due to elevated liver enzymes (4) Alcohol abuse: Code(s): F10.10 - Alcohol abuse, uncomplicated Status: Acute Assessment and Plan: Patient drinks 40 drinks a week.. Patient was counseled to quit or at least cut down alcohol intake Thiamine folic acid Monitor for signs of withdrawal (5) Elevated liver enzymes: Code(s): R74.8 - Abnormal levels of other serum enzymes Status: Acute Assessment and Plan: Elevated AST ALT and with slightly elevated bilirubin CT scan shows diffuse fatty infiltration of the liver likely secondary to alcoholic liver disease as patient is heavy alcohol intake Hold statin Monitor level Negative right upper quadrant ultrasound and and negative viral panel Plan DVT prophylaxis -Lovenox Nutrition -clear liquid diet Code Status - Full Code Subjective Date/time seen: 05/22/24 14:02 Interval history: Patient comfortable at bedside Review of Systems Review of Systems: All systems reviewed & are unremarkable except as noted in HPI and below (HPI) Exam Narrative: General: Pt is alert awake and in NAD Lungs/Chest: Trachea central Clear BS B/L, No crackles or wheezing. Cardiac: RRR. Normal S1 S2. No murmurs Circulation: Pedal pulses are intact and symmetrical. Abdomen: Normal bowel sounds.. Soft. NT. ND. Extremities: No clubbing, cyanosis or edema. Warm : Ely in place Neurologic: Follows commands. Moves all 4 extremities PERRL Skin: No Rash Const: General: comfortable and no acute distress Other: , male, nontoxic appearance, husam complexion. HENMT: Face/Nose/Sinus: Normal nares present Mouth: Yes moist mucous membranes Eyes: General: appearance normal, both eyes and all related structures Sclera: sclerae normal Pupils: Equal, round and reactive pupils present EOM: EOMs intact bilaterally Resp: Effort & Inspection: normal respiratory effort Auscultation: clear to auscultation bilaterally Cardio: Rate: regular rate Rhythm: regular rhythm Other: S1-S2 present without murmur, rub, ectopy GI: Other: Abdomen rounded, soft, nontender. Normoactive bowel sounds in all quadrants. Skin: General skin exam: no rashes or lesions noted Wounds: no wounds Other: +Husam complexion Neuro: Cranial nerves: Yes Equal, round and reactive pupils present Speech: normal speech Motor exam (neuro): 5/5 motor strength present throughout Sensory Exam: normal sensation Other: A&O x4. No agitation. No tremor on exam. Extrem: General: normal to inspection Psych: Mental Status: mental status grossly normal Affect: Sad affect present Other: Good insight and judgment, pleasant Objective Data Vital Signs Vital Signs: Vital Signs - 24 hr 05/21/24 16:00 05/21/24 16:00 05/21/24 16:00 Temperature 98.2 F Pulse Rate 95 95 Respiratory Rate 16 Blood Pressure 147/84 H Pulse Oximetry 99 Oxygen Delivery Room Air 05/21/24 18:00 05/21/24 18:00 05/21/24 20:00 Temperature 98.2 F Pulse Rate 91 91 96 Respiratory Rate 16 20 Blood Pressure 149/95 H 145/76 H Pulse Oximetry 95 96 Oxygen Delivery 05/21/24 20:00 05/21/24 20:37 05/21/24 22:00 Temperature 98 F Pulse Rate 96 89 Respiratory Rate 20 Blood Pressure 136/83 Pulse Oximetry 97 96 Oxygen Delivery Room Air 05/21/24 22:00 05/22/24 00:00 05/22/24 00:00 Temperature 98.2 F Pulse Rate 89 97 95 Respiratory Rate 22 H Blood Pressure 150/89 H Pulse Oximetry 98 Oxygen Delivery 05/22/24 02:00 05/22/24 02:00 05/22/24 04:00 Temperature 98.4 F Pulse Rate 85 85 99 Respiratory Rate 15 20 Blood Pressure 142/84 H 145/81 H Pulse Oximetry 96 98 Oxygen Delivery 05/22/24 04:00 05/22/24 06:00 05/22/24 06:00 Temperature Pulse Rate 100 96 96 Respiratory Rate 21 H Blood Pressure 142/89 H Pulse Oximetry 97 Oxygen Delivery 05/22/24 08:00 05/22/24 08:00 05/22/24 08:00 Temperature 98.4 F Pulse Rate 97 98 Respiratory Rate 18 Blood Pressure 150/74 H Pulse Oximetry 97 Oxygen Delivery Room Air 05/22/24 10:00 05/22/24 10:00 05/22/24 12:00 Temperature Pulse Rate 108 H 108 H Respiratory Rate 18 Blood Pressure 122/65 Pulse Oximetry 97 Oxygen Delivery Room Air 05/22/24 12:00 05/22/24 12:00 Temperature 98.2 F Pulse Rate 103 H 92 Respiratory Rate 18 Blood Pressure 137/74 Pulse Oximetry 96 Oxygen Delivery Intake/Output Intake/Output: Intake & Output 05/19/24 05/20/24 05/21/24 05/22/24 23:59 23:59 23:59 23:59 Intake Total 3250.7 2841.3 Output Total 1750 3250 Balance 1500.7 -408.7 Meds/Results Medications: Active Medications Generic Name Dose Route Start Last Admin Trade Name Freq PRN Reason Stop Dose Admin Acetaminophen 650 mg 05/21/24 18:43 05/22/24 04:05 Acetaminophen 325 Mg Tablet PO 650 mg Q4H PRN Administration Pain Amlodipine Besylate 10 mg 05/21/24 17:00 05/21/24 16:26 Amlodipine Besylate 10 Mg Tablet PO 10 mg DAILY@1700 GENIA Administration Dextrose 12.5 gm 05/21/24 07:27 Dextrose 50% 25 Gm/50 Ml Syringe IV PUSH PRN PRN Hypoglycemia Protocol Enoxaparin Sodium 40 mg 05/21/24 10:50 05/22/24 09:35 Enoxaparin 40 Mg/0.4 Ml Syringe SUB-Q Not Given DAILY GENIA Folic Acid 1 mg 05/22/24 09:00 05/22/24 09:14 Folic Acid 1 Mg Tablet PO 1 mg DAILY GENIA Administration Glucagon 1 mg 05/21/24 07:27 Glucagon For Inj 1 Mg Vial IM PRN PRN Hypoglycemia Protocol Glucose 15 gm 05/21/24 07:27 Glucose Oral Gel 15 Gm Of Glucse In 37.5 Gm Tube PO PRN PRN Hypoglycemia Protocol Insulin Human Regular 100 100 mls @ 7 mls/hr 05/21/24 08:00 05/22/24 13:06 units/ Sodium Chloride IV CONT 7 units/hr .[id number] GENIA 7 mls/hr Titration Protocol 7 UNITS/HR Dextrose 1,000 mls @ 100 mls/hr 05/21/24 07:27 Dextrose 5% 1,000 Ml IVPB PRN PRN Hypoglycemia Protocol Potassium Chloride/Dextrose/Sod Cl 1,000 mls @ 150 mls/hr 05/21/24 11:35 05/22/24 09:15 Kcl 20 Meq/D5/0.45% Sod Chl IV CONT 150 mls/hr .Q6H40M GENIA Administration Dextrose/Sodium Chloride 1,000 mls @ 150 mls/hr 05/21/24 11:35 05/21/24 18:21 Dextrose 5% Sodium Chloride 0.45% IV CONT Not Given .Q6H40M GENIA Sodium Chloride 1,000 mls @ 150 mls/hr 05/22/24 00:35 Normal Saline Iv IV CONT .Q6H40M GENIA Irbesartan 300 mg 05/21/24 17:00 05/21/24 16:26 Irbesartan 150 Mg Tablet PO 300 mg DAILY@1700 GENIA Administration Thiamine HCl 100 mg 05/22/24 09:00 05/22/24 09:14 Thiamine Hcl 100 Mg Tablet PO 100 mg QAM GENIA Administration Radiology Results: ITS Impressions Abdomen/Pelvis CT 05/21/24 07:45 Impression: Diffuse fatty infiltration of the liver. Abdomen Ultrasound 05/21/24 12:35 IMPRESSION: 1. Normal right upper quadrant ultrasound. Labs Labs: Laboratory Results - last 24 hr 05/21/24 05/21/24 05/21/24 11:35 13:59 15:15 WBC RBC Hgb Hct MCV MCH MCHC RDW Plt Count MPV Sodium Potassium Chloride Carbon Dioxide Anion Gap BUN Creatinine Estim Creat Clear Calc Estimated GFR Glucose POC Capillary Glucose 315 H 263 H Calcium Magnesium Total Bilirubin AST ALT Alkaline Phosphatase Total Protein Albumin Hepatitis A IgM Ab Negative Hep Bs Antigen Negative Hep B Core IgM Ab Negative Hepatitis C Ab Screen Negative 05/21/24 05/21/24 05/21/24 15:46 16:26 17:07 WBC RBC Hgb Hct MCV MCH MCHC RDW Plt Count MPV Sodium 132 L Potassium 3.9 Chloride 103 Carbon Dioxide 18 L Anion Gap 11 BUN 11 Creatinine 0.47 L Estim Creat Clear Calc 151 Estimated GFR > 60 Glucose 239 H POC Capillary Glucose 187 H 150 H Calcium 8.9 Magnesium Total Bilirubin AST ALT Alkaline Phosphatase Total Protein Albumin Hepatitis A IgM Ab Hep Bs Antigen Hep B Core IgM Ab Hepatitis C Ab Screen 05/21/24 05/21/24 05/21/24 18:00 19:01 19:46 WBC RBC Hgb Hct MCV MCH MCHC RDW Plt Count MPV Sodium 134 L Potassium 4.2 Chloride 104 Carbon Dioxide 18 L Anion Gap 12 BUN 9 Creatinine 0.47 L Estim Creat Clear Calc 151 Estimated GFR > 60 Glucose 196 H POC Capillary Glucose 178 H 182 H Calcium 9.1 Magnesium Total Bilirubin AST ALT Alkaline Phosphatase Total Protein Albumin Hepatitis A IgM Ab Hep Bs Antigen Hep B Core IgM Ab Hepatitis C Ab Screen 05/21/24 05/21/24 05/21/24 19:58 20:57 21:56 WBC RBC Hgb Hct MCV MCH MCHC RDW Plt Count MPV Sodium Potassium Chloride Carbon Dioxide Anion Gap BUN Creatinine Estim Creat Clear Calc Estimated GFR Glucose POC Capillary Glucose 202 H 211 H 213 H Calcium Magnesium Total Bilirubin AST ALT Alkaline Phosphatase Total Protein Albumin Hepatitis A IgM Ab Hep Bs Antigen Hep B Core IgM Ab Hepatitis C Ab Screen 05/21/24 05/21/24 05/21/24 23:00 23:25 23:53 WBC RBC Hgb Hct MCV MCH MCHC RDW Plt Count MPV Sodium 134 L Potassium 3.8 Chloride 104 Carbon Dioxide 19 L Anion Gap 11 BUN 8 L Creatinine 0.46 L Estim Creat Clear Calc 154 Estimated GFR > 60 Glucose 243 H POC Capillary Glucose 242 H 250 H Calcium 8.7 Magnesium Total Bilirubin AST ALT Alkaline Phosphatase Total Protein Albumin Hepatitis A IgM Ab Hep Bs Antigen Hep B Core IgM Ab Hepatitis C Ab Screen 05/22/24 05/22/24 05/22/24 00:54 01:59 03:00 WBC RBC Hgb Hct MCV MCH MCHC RDW Plt Count MPV Sodium Potassium Chloride Carbon Dioxide Anion Gap BUN Creatinine Estim Creat Clear Calc Estimated GFR Glucose POC Capillary Glucose 208 H 235 H 199 H Calcium Magnesium Total Bilirubin AST ALT Alkaline Phosphatase Total Protein Albumin Hepatitis A IgM Ab Hep Bs Antigen Hep B Core IgM Ab Hepatitis C Ab Screen 05/22/24 05/22/24 05/22/24 03:25 03:59 04:59 WBC 8.6 RBC 4.32 L Hgb 13.9 L Hct 40.0 L MCV 92.6 MCH 32.2 MCHC 34.8 RDW 12.3 Plt Count 329 MPV 9.0 Sodium 136 L Potassium 3.6 Chloride 105 Carbon Dioxide 21 L Anion Gap 10 BUN 6 L Creatinine 0.42 L Estim Creat Clear Calc 167 Estimated GFR > 60 Glucose 200 H POC Capillary Glucose 196 H 219 H Calcium 8.8 Magnesium 1.9 Total Bilirubin 1.3 AST 200 H ALT 115 H Alkaline Phosphatase 92 Total Protein 7.0 Albumin 3.9 Hepatitis A IgM Ab Hep Bs Antigen Hep B Core IgM Ab Hepatitis C Ab Screen 05/22/24 05/22/24 05/22/24 05:56 06:55 07:38 WBC RBC Hgb Hct MCV MCH MCHC RDW Plt Count MPV Sodium 134 L Potassium 4.0 Chloride 102 Carbon Dioxide 19 L Anion Gap 13 H BUN 6 L Creatinine 0.44 L Estim Creat Clear Calc 160 Estimated GFR > 60 Glucose 273 H POC Capillary Glucose 232 H 211 H Calcium 9.0 Magnesium Total Bilirubin AST ALT Alkaline Phosphatase Total Protein Albumin Hepatitis A IgM Ab Hep Bs Antigen Hep B Core IgM Ab Hepatitis C Ab Screen 05/22/24 05/22/24 05/22/24 09:12 10:06 11:01 WBC RBC Hgb Hct MCV MCH MCHC RDW Plt Count MPV Sodium Potassium Chloride Carbon Dioxide Anion Gap BUN Creatinine Estim Creat Clear Calc Estimated GFR Glucose POC Capillary Glucose 370 H 338 H 303 H Calcium Magnesium Total Bilirubin AST ALT Alkaline Phosphatase Total Protein Albumin Hepatitis A IgM Ab Hep Bs Antigen Hep B Core IgM Ab Hepatitis C Ab Screen 05/22/24 05/22/24 05/22/24 11:13 12:11 13:02 WBC RBC Hgb Hct MCV MCH MCHC RDW Plt Count MPV Sodium 134 L Potassium 4.0 Chloride 100 Carbon Dioxide 19 L Anion Gap 15 H BUN 5 L Creatinine 0.44 L Estim Creat Clear Calc 160 Estimated GFR > 60 Glucose 310 H POC Capillary Glucose 277 H 280 H Calcium 9.2 Magnesium Total Bilirubin AST ALT Alkaline Phosphatase Total Protein Albumin Hepatitis A IgM Ab Hep Bs Antigen Hep B Core IgM Ab Hepatitis C Ab Screen Quality VTE Prophylaxis VTE prophylaxis: pharmacologic ordered
[2024-05-22 14:12] LABS: Glucose Point of Care 214 mg/dl (65-105)
[2024-05-22 15:01] LABS: Glucose Point of Care 177 mg/dl (65-105)
[2024-05-22 15:26] LABS: Anion Gap 13 mmol/L (4-12); Blood Urea Nitrogen 4 mg/dL (9-20); Calcium 9.5 mg/dL (8.4-10.2); Carbon Dioxide 22 mmol/L (22-30); Chloride 102 mmol/L (98-107); Estimated CRCL calculation 163 ml/min; Estimated Glomerular Filt Rate > 60; Glucose 166 mg/dL (65-110); Potassium 3.8 mmol/L (3.4-5.0); Sodium 137 mmol/L (137-145)
[2024-05-22] MEDS: POTASSIUM CHLORIDE 20 MEQ ER TABLET 40 MEQ PO (15:57)
[2024-05-22] MEDS: INSULIN GLARGINE (*BKC) 100 UNITS/ML 35 UNITS SUB-Q (15:57)
[2024-05-22] MEDS: IRBESARTAN 150 MG TABLET 300 MG PO (17:02)
[2024-05-22] MEDS: amLODIPine BESYLATE 10 MG TABLET PO (17:02)
[2024-05-22] MEDS: INSULIN ASPART (*BKC) 100 UNITS/ML 8 UNITS SUB-Q (17:03)
[2024-05-22 17:08] LABS: Glucose Point of Care 129 mg/dl (65-105)
[2024-05-22 19:10] LABS: Anion Gap 10 mmol/L (4-12); Blood Urea Nitrogen 6 mg/dL (9-20); Calcium 9.3 mg/dL (8.4-10.2); Carbon Dioxide 23 mmol/L (22-30); Chloride 102 mmol/L (98-107); Estimated CRCL calculation 123 ml/min; Estimated Glomerular Filt Rate > 60; Glucose 227 mg/dL (65-110); Potassium 4.1 mmol/L (3.4-5.0); Sodium 135 mmol/L (137-145)
[2024-05-22] MEDS: INSULIN ASPART (*BKC) 100 UNITS/ML SUB-Q (20:54)
[2024-05-22 21:04] LABS: Glucose Point of Care 244 mg/dl (65-105)
--- NOTE | 2024-05-22 23:50 | PC.NURSE ---
This patient, Ivan Quintana, was transferred to [ 319] on 05/23/24 at 2350. Personal belongings sent with patient. Report given to [Edison COLE ]. Appropriate documentation sent with patient.
[2024-05-23] VITALS: BP 130/64; PULSE 110; RESP 18; TEMP 36; O2SAT 99
--- NOTE | 2024-05-23 00:14 | ADMGEN ---
This patient, Ivan Quintana, was admitted to [facility] Surg Room 319-01. Patient/family oriented to hospital policies and general routines including ID bracelet, bed and alarms, visiting hours, pain management, procedures, bathroom and other care routines, personal items, smoking policy, room service/diet, and visiting hours. Information on how to activate the Rapid Response Team has been discussed. Patient/Family are encouraged to report perceived risks to care and to ask questions if they do not understand what they are told or what they should do.
[2024-05-23 04:31] LABS: Glucose Point of Care 207 mg/dl (65-105)
[2024-05-23 06:43] LABS: Basophils Absolute Auto 0.1 K/mm3 (0.0-0.1); Basophils Percent Auto 0.9 % (0.2-1.2); Eosinophils Absolute Auto 0.1 K/mm3 (0-0.3); Eosinophils Percent Auto 1.3 % (0-4.4); Hematocrit 41.1 % (42.0-52.0); Hemoglobin 13.9 g/dL (14.0-18.0); Immature Granulocyte Absolute 0.03 K/mm3 (0.00-0.031); Immature Granulocyte Percent A 0.3 % (0-0.5); Lymphocytes Absolute Auto 2.23 K/mm3 (0.9-3.2); Lymphocytes Percent Auto 24.3 % (18.3-44.2); Mean Corpuscular HGB Conc 33.8 g/dl (32-36); Mean Corpuscular Hemoglobin 31.3 pg (26-34); Mean Corpuscular Volume 92.6 fl (80-100); Mean Platelet Volume 9.4 fl (7.4-10.4); Monocytes Percent Auto 10.8 % (2.6-8.5); Neutrophils Absolute Auto 5.7 K/mm3 (1.3-6.7); Neutrophils Percent Auto 62.4 % (45.5-73.1); Platelet Count Result 336 k/mm3 (150-375); Red Blood Count 4.44 M/mm3 (4.6-6.20); Red Cell Distribution Width 12.1 % (11.5-14.5); White Blood Count 9.2 K/mm3 (4.5-10.0)
[2024-05-23 07:00] LABS: Alanine Aminotransferase 114 U/L (6-50); Albumin Level 3.9 g/dL (3.5-5.1); Alkaline Phosphatase 87 U/L (38-126); Anion Gap 8 mmol/L (4-12); Aspartate Amino Transferase 147 U/L (17-59); Bilirubin,Total 0.9 mg/dL (0.2-1.3); Blood Urea Nitrogen 7 mg/dL (9-20); Calcium 9.3 mg/dL (8.4-10.2); Carbon Dioxide 26 mmol/L (22-30); Chloride 103 mmol/L (98-107); Estimated CRCL calculation 151 ml/min; Estimated Glomerular Filt Rate > 60; Glucose 139 mg/dL (65-110); Magnesium 1.7 mg/dL (1.6-2.3); Potassium 3.8 mmol/L (3.4-5.0); Sodium 137 mmol/L (137-145)
[2024-05-23 08:05] LABS: Glucose Point of Care 151 mg/dl (65-105)
[2024-05-23] MEDS: THIAMINE HCL 100 MG TABLET PO (09:44)
[2024-05-23] MEDS: FOLIC ACID 1 MG TABLET PO (09:44)
[2024-05-23] MEDS: ENOXAPARIN 40 MG/0.4 ML SYRINGE SUB-Q (09:44)
[2024-05-23] MEDS: INSULIN ASPART (*BKC) 100 UNITS/ML 8 UNITS SUB-Q ×2 (09:45→11:52)
[2024-05-23 11:51] LABS: Glucose Point of Care 318 mg/dl (65-105)
[2024-05-23] MEDS: INSULIN ASPART (*BKC) 100 UNITS/ML SUB-Q (11:51)
--- NOTE | 2024-05-23 11:54 | P.DS_ITS ---
DS: Admitting Diagnosis Discharge Date 05/23/24 Admitting Diagnosis Nausea DS: Discharge Diagnosis Discharge Diagnosis (1) DKA (diabetic ketoacidosis): Qualifiers: Diabetes mellitus complication detail: without coma Diabetes mellitus type: type 1 Qualified Code(s): E10.10 - Type 1 diabetes mellitus with ketoacidosis without coma Code(s): E11.10 - Type 2 diabetes mellitus with ketoacidosis without coma Status: Acute DS: Summary Hospital Course Hospital Course: 59 y/o M presents here with diabetes complications with PMH of DM1, GERD, diabetic retinopathy, cleep apnea (not on CPAP) and HTN. The patient presents here from home for further evaluation of diabetic complications. He reports he has been out of his Omnipod for the past 4 days. He was unable to fill this prescription due to a lapse in medical insurance. Insurance was reinstated 05/16. He reports the prescription would have cost 1,500 dollars for 15. Has since developed shortness of breath, nausea, cramping in his lower extremities, and feels foggy . Due to prescription running out the patient reports he has been substituting this with Humalog SQ 6-8 times per day. He was taking the injections when he felt his blood sugar going high. Meter is currently broken and has not had a script for a replacement. Denies fever, chills, cough, congestion. Previous hx of daily ETOH, 6-8 drinks daily. But is motivated to quit after he was informed about his LFTs and fatty liver on imaging. Plans on quitting cold turkey. Initial VS at presentation: S 98.5? F, HR 110, RR 17, 152/80, 99% on RA. ED workup showed: WBC 12.4, no anemia, sodium 133, potassium 5.1, creatinine 0.68 and GFR >60, initial glucose 422, A1c 8.4%, elevated LFTs, beta hydroxy 7.79, and UA showed 1+ protein/3+ glucose/4+ ketones/2+ blood. Viral PCR negative. CT of the abdomen/pelvis showed diffuse fatty infiltration of the liver. Patient was managed in the ICU with Insulin infusion and IVF, DKA resolved and patient transitioend to sq regimen. Noted he now has insurance and his insulin pump and supplies are on their way already. however patient was discharged on Lantus 25 units, TID humalog and SSI humalog regimen. F/u with PCP in 3-5 days Time Spent with Patient Time attestation: Total time spent providing and/or coordinating discharge services: DS: Data Data Completed and Pending Labs on day of discharge: Labs from last 24 hours 05/23/24 05/23/24 05/23/24 11:47 07:54 06:15 WBC 9.2 RBC 4.44 L Hgb 13.9 L Hct 41.1 L MCV 92.6 MCH 31.3 MCHC 33.8 RDW 12.1 Plt Count 336 MPV 9.4 Immature Gran % (Auto) 0.3 Neut % (Auto) 62.4 Lymph % (Auto) 24.3 Callahan % (Auto) 10.8 H Eos % (Auto) 1.3 Baso % (Auto) 0.9 Lymph # (Auto) 2.23 Callahan # (Auto) 1.0 H Eos # (Auto) 0.1 Baso # (Auto) 0.1 Abs Immat Gran (auto) 0.03 Absolute Neuts (auto) 5.7 Absolute Nucleated RBC 0.000 Nucleated RBC % 0.0 Sodium 137 Potassium 3.8 Chloride 103 Carbon Dioxide 26 Anion Gap 8 BUN 7 L Creatinine 0.47 L Estim Creat Clear Calc 151 Estimated GFR > 60 Glucose 139 H POC Capillary Glucose 318 H 151 H Calcium 9.3 Magnesium 1.7 Total Bilirubin 0.9 AST 147 H ALT 114 H Alkaline Phosphatase 87 Total Protein 7.0 Albumin 3.9 05/23/24 05/22/24 05/22/24 00:01 20:53 18:55 WBC RBC Hgb Hct MCV MCH MCHC RDW Plt Count MPV Immature Gran % (Auto) Neut % (Auto) Lymph % (Auto) Callahan % (Auto) Eos % (Auto) Baso % (Auto) Lymph # (Auto) Callahan # (Auto) Eos # (Auto) Baso # (Auto) Abs Immat Gran (auto) Absolute Neuts (auto) Absolute Nucleated RBC Nucleated RBC % Sodium 135 L Potassium 4.1 Chloride 102 Carbon Dioxide 23 Anion Gap 10 BUN 6 L Creatinine 0.59 L Estim Creat Clear Calc 123 Estimated GFR > 60 Glucose 227 H POC Capillary Glucose 207 H 244 H Calcium 9.3 Magnesium Total Bilirubin AST ALT Alkaline Phosphatase Total Protein Albumin 05/22/24 05/22/24 05/22/24 17:01 15:00 14:59 WBC RBC Hgb Hct MCV MCH MCHC RDW Plt Count MPV Immature Gran % (Auto) Neut % (Auto) Lymph % (Auto) Callahan % (Auto) Eos % (Auto) Baso % (Auto) Lymph # (Auto) Callahan # (Auto) Eos # (Auto) Baso # (Auto) Abs Immat Gran (auto) Absolute Neuts (auto) Absolute Nucleated RBC Nucleated RBC % Sodium 137 Potassium 3.8 Chloride 102 Carbon Dioxide 22 Anion Gap 13 H BUN 4 L Creatinine 0.43 L Estim Creat Clear Calc 163 Estimated GFR > 60 Glucose 166 H POC Capillary Glucose 129 H 177 H Calcium 9.5 Magnesium Total Bilirubin AST ALT Alkaline Phosphatase Total Protein Albumin 05/22/24 05/22/24 05/22/24 14:10 13:02 12:11 WBC RBC Hgb Hct MCV MCH MCHC RDW Plt Count MPV Immature Gran % (Auto) Neut % (Auto) Lymph % (Auto) Callahan % (Auto) Eos % (Auto) Baso % (Auto) Lymph # (Auto) Callahan # (Auto) Eos # (Auto) Baso # (Auto) Abs Immat Gran (auto) Absolute Neuts (auto) Absolute Nucleated RBC Nucleated RBC % Sodium Potassium Chloride Carbon Dioxide Anion Gap BUN Creatinine Estim Creat Clear Calc Estimated GFR Glucose POC Capillary Glucose 214 H 280 H 277 H Calcium Magnesium Total Bilirubin AST ALT Alkaline Phosphatase Total Protein Albumin Discharge Plan Discharge Attending physician on discharge: [place] Consulting providers: Jorge Solis Discharging Clinician: [place] Anticipated Discharge Date/Time: 05/23/24 11:45 Patient Disposition: Home, Self-Care Activity: as tolerated Diet: diabetic Patient Instructions: Antibiotic Form Patient Language: Czech Stand Alone Forms: General Discharge Information Follow-up/Referrals: UNKNOWN,DOCTOR [Primary Care Provider] - (F/u with PCP in 3-5 days ) Discharge Medications: New (DME) blood-glucose meter [OneTouch Verio Flex meter] Mis Qty: 1 0RF Rx Instructions: May substitute to in-stock meter and/or covered by insurance. Use As Directed (DME) OneTouch Verio test strips Strip Qty: 1 0RF Rx Instructions: May substitute to in-stock and/or covered by insurance strips. Use As Directed (DME) lancets [OneTouch Delica Plus Lancet] 30 gauge misc Qty: 1 0RF Rx Instructions: May substitute to in-stock and/or covered by insurance lancets. Use As Directed insulin glargine [Lantus Solostar U-100 Insulin] 100 unit/mL (3 mL) insulin pen 25 unit subcut QAM 30 Days Qty: 7.5 1RF thiamine HCl (vitamin B1) [Vitamin B-1] 100 mg Tablet 100 mg PO QAM 14 Days Qty: 14 0RF insulin aspart U-100 [Novolog FlexPen U-100 Insulin] 100 unit/mL (3 mL) insulin pen 1 sliding scale dose subcut USEASDIRECTD Qty: 15 0RF insulin lispro [Humalog U-100 Insulin] 100 unit/mL solution 7 unit subcut .tid w meal Qty: 3 0RF Continued glucagon 3 mg/actuation spray,non-aerosol 3 mg intranasal ONCE PRN (Reason: hypoglycemia) Rx Instructions: as a single dose; may repeat once in 15 minutes if no response (DME) Dexcom G6 [facility]ity [facility] See Rx Instructions .ROUTE .MEDSUPPLY Qty: 1 0RF Rx Instructions: Will use smartphone tadalafil [Cialis] 20 mg tablet 20 mg PO DAILY PRN (Reason: sexual activity) Qty: 18 3RF (DME) Dexcom G6 Sensor Device See Rx Instructions .ROUTE .MEDSUPPLY Qty: 9 4RF Rx Instructions: Use to Monitor Glucose ; Change every 10 days ondansetron 4 mg tablet,disintegrating 4 mg PO Q6H PRN (Reason: nausea and vomiting) Qty: 10 0RF (DME) Omnipod 5 G6-G7 Pods (Gen 5) Cartridge See Rx Instructions .ROUTE Rx Instructions: As directed atorvastatin 80 mg tablet 80 mg PO DAILY@1700 amlodipine [Norvasc] 10 mg tablet 10 mg PO DAILY@1700 irbesartan 300 mg tablet 300 mg PO DAILY@1700 insulin lispro [Humalog U-100 Insulin] 100 unit/mL solution 100 unit continuous subcutaneous infusion DAILY MDD 100 90 Days Qty: 90 1RF prednisone 20 mg tablet 40 mg PO . q.a.m. Qty: 14 0RF (DME) insulin pump cart,automated,BT Cartridge See Rx Instructions .ROUTE .MEDSUPPLY Qty: 45 3RF Rx Instructions: change every 48 hours Date of admission: 05/22/24 09:41 Primary Care Provider: UNKNOWN,DOCTOR Admitting Provider: Magaly Schmid Attending physician on admission: Magaly Schmid Condition: Critical
[2024-05-23] MEDS: INSULIN GLARGINE (*BKC) 100 UNITS/ML 25 UNITS SUB-Q (12:59)
[2024-05-23 14:00] VITALS: BP 156/86; PULSE 75; RESP 18; O2SAT 99
[2024-05-23 15:37] LABS: Glucose Point of Care 217 mg/dl (65-105)
[2024-05-24 03:21] LABS: Glucose Point of Care 352 mg/dl (65-105)
--- NOTE | 2024-05-25 15:59 | PCCDE ---
05/25: 15:55 - DM Courtesy follow up call attempted. Message left on voice mail including direct call back number. FJ
== END 2024-05-23 15:40 | disposition home or self-care (01) | DRG 639 ==
LOC: ANHED 08:22 → ANHICU 08:54 → ANH3MEDSUR 05-23 11:46 → ANHICU 05-26 13:07
PROVIDERS: Emergency Medicine; Internal Medicine; Admitting Provider Hospitalist; Emergency Provider Emergency Medicine; Visit Provider Internal Medicine
DX: E10.10 Type 1 diabetes mellitus with ketoacidosis without coma (principal); K21.9 Gastro-esophageal reflux disease without esophagitis; E10.319 Type 1 diabetes mellitus with unspecified diabetic retinopathy without macular edema; E78.2 Mixed hyperlipidemia; F10.10 Alcohol abuse, uncomplicated; G47.30 Sleep apnea, unspecified; I10 Essential (primary) hypertension; R74.8 Abnormal levels of other serum enzymes; Z28.21 Immunization not carried out because of patient refusal; Z20.822 Contact with and (suspected) exposure to COVID-19; Z79.4 Long term (current) use of insulin; Z88.0 Allergy status to penicillin
CPT/HCPCS: 36415; 74177; 76705; 80048; 80053; 80074; 81001; 82010; 82948; 83036; 83735; 84100; 85025; 85027; 87637; 87641; 96361; 96374; 96375; 99285; A9270; G0378; J1650; J1815; J3480; J7030; Q9967

== ENCOUNTER 2024-07-20 10:21 | Emergency (ER) | payer OTHER, SELFPAY ==
[2024-07-20 10:27] VITALS: BP 138/64; PULSE 110; RESP 18; TEMP 36.7; O2SAT 98
--- OUTSIDE RECORDS SUMMARY | 2024-07-20 11:12 | XMS_ITS | Referral Summary ---
Author Organization 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 Gender Identity Not on file Sexual Orientation Not on file Last Filed Vital Signs Vital Sign Reading Time Taken Comments Blood Pressure 163/80 03/08/2024 11:13 AM DITCH TENDER Pulse 99 03/08/2024 11:13 AM DITCH TENDER Temperature 36.9 C (98.4 F) 03/08/2024 11:13 AM DITCH TENDER Respiratory Rate 18 03/08/2024 11:13 AM DITCH TENDER Oxygen Saturation 99% 03/08/2024 11:13 AM DITCH TENDER Inhaled Oxygen Concentration - - Weight 86.4 kg (190 lb 7.6 oz) 10/20/2023 11:10 AM CDT Height 180.3 cm (5' 11 ) 10/20/2023 11:10 AM CDT Body Mass Index 26.57 10/20/2023 11:10 AM CDT Plan of Treatment Not on file Procedures Procedure Name Priority Date/Time Associated Diagnosis Comments EGFR Routine 10/22/2023 7:46 AM CDT HEMOGLOBIN A1C Routine 10/20/2023 11:46 AM CDT LIPID PANEL Routine 11/10/2015 2:09 PM CDT from Last 3 Months or Most Recently Relevant to Health Maintenance Results * eGFR (10/22/2023 7:46 AM CDT) eGFR [...] 7:46 AM CDT 10/22/2023 8:19 AM CDT Annabenedict Villela LAB BLOOD ORDER NIMESH Final Result Performing Organization Address [facility] de Phone Number [address] [place] [address] * (ABNORMAL) Hemoglobin A1c (10/20/2023 11:46 AM CDT) Pathologist [facility] Hgb A1C 10.4(H) 4.0 - 5.6 % Estimated Average Glucose 252 mg/dL RICHARD Comment: The ADA recommends reporting an estimated Average Glucose (eAG) with all Hemoglobin A1c results using the equation derived from a study of 507 normal and diabetic adults. Minority populations were underrepresented and children were not included. (Diabetes Care 31:9496-4640, 2008). The eAG is not equivalent to a fasting glucose. Blood 10/20/2023 11:4 6 AM CDT 10/20/2023 11:59 AM CDT Annabenedict Villela NP LAB BLOOD ORDER NIMESH Final Result Performing Organization Address [facility] de Phone Number [place] [id number] [place] [address] * (ABNORMAL) Lipid panel (11/10/2015 2:09 PM CDT) [facility] SCRIBED Cholesterol, Total 236(A) 0 - 200 [facility] SCRIBED HDL 50 40 - 100 [facility] SCRIBED LDL 132(A) 0 - 100 [facility] SCRIBED Triglycerides 270(A) 0 - 150 [facility] Blood specimen (specimen) us Historical Provider LAB BLOOD ORDERABLES Edit ed Result - Final [facility] from Last 3 Months or Most Recently Relevant to Health Maintenance Insurance [facility] [employer] Advance Directives For more information, please contact: [phone] * Full Code (Latest Code Status on File) Date Activated Date Inactivated Comments 10/20/2023 11:12 AM 10/22/2023 11:34 PM Care Teams [employer] Relationship Specialty Start Date End Date Josue Lei MD [address] [address] PCP - General 06/15/16
--- OUTSIDE RECORDS SUMMARY | 2024-07-20 11:12 | XMS_ITS | Continuity of Care Document ---
Author Organization [facility] Address [address] [facility] [address] [place] [address] Phone Care Team Providers Care Production Machine Shop Supervisor Name Role Phone Jay Ramos Unavailable Unavailable [...] Diagnoses Date Provider Providers Copied on Encounter [facility], [address] [place] [address] [address], [place], [place], [id number], [place] tel:[phone] SEC [facility] No Information 2-201 0 Richard Thompson. [address] [place], [address], [place]. tel:[phone] Referring Provider: Jay Berger, [address] [place], [place], [facility]. tel:[phone] [facility], [address] [place] [address] [address], [place], [place], [id number], [place] tel:[phone] SEC [facility] No Information Oct-0 6-200 9 Richard Thompson. [address] [place], [place], [facility], [place]. tel:[phone] Referring Provider: Jay Berger, [address] [place], [place], [facility]. tel:[phone] [facility], [address] [place] [address] [address], [place], [place], [id number], [place] tel:[phone] [facility] No Information 9 David Franciscohil. [address], [place], [place], [facility], [place]. tel:[phone] Office Consultation [facility], [address], [place], [place], [id number], [place] tel:[phone] SEC [facility] No Information 8 Richard Thompson. [address] [place], [facility], [place]. tel:[phone] Referring Provider: Pearl Edwards, [address] [place], [place] [address], [place], [facility]. tel:[phone] Office/outpati ent Visit, [facility], [address] [place] [address] [address], [place], [place], [address], [place] tel:[phone] SEC [facility] No Information 8 Lucila Kang. [facility] [address] , [address], [place], [facility], [place]. tel:[phone] Office/outpati ent Visit, [facility], [address] [place] [address] [address], [place], [place], [id number], [place] tel:[phone] [facility] [place] No Information 8 Lucila Kang. [address] [facility] , [address], [place], [facility], [place]. tel:[phone] Office/outpati ent Visit, [facility], [address] [place] [address] [address], [place], [place], [id number], [place] tel:[phone] SEC [facility] No Information Sep-0 3-200 7 Gaytan Pearl. [address] , [address], [place], [address], . tel:[phone] [facility], [address], [place], [place], [id number], [place] tel:[phone] SEC [facility] No Information Feb-2 6-200 6 Gaytan Pearl. [address] [facility] [address] , [address], [place], [address], [place]. tel:[phone] Referring Provider: Josue Lei MD, [address] [place] [address], [place], [address]. tel:[phone] Family History Family Member Type Diagnosis Age At Onset No Information Payers Payer name Insurance type Covered libertarian ID Authoriza tion(s) No Information Social History [...]
--- OUTSIDE RECORDS SUMMARY | 2024-07-20 11:12 | XMS_ITS | Clinical Summary ---
Author Organization [facility] [address] [place] [address] Care Team Providers Care Back Tender Fourdrinier Name Role Phone Josue Lei MD Primary Care Provider [phone] Allergies Active Allergy Reactions Criticality Noted Date [...] copy of recent labs. Schedule eye exam. 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 Gender Identity Not on file Sexual Orientation Not on file Obstetrics History Last Filed Vital Signs Vital Sign Reading Time Taken Comments Blood Pressure 163/80 03/08/2024 11:13 AM SHOW JUMPING INSTRUCTOR Pulse 99 03/08/2024 11:13 AM SHOW JUMPING INSTRUCTOR Temperature 36.9 C (98.4 F) 03/08/2024 11:13 AM SHOW JUMPING INSTRUCTOR Respiratory Rate 18 03/08/2024 11:13 AM SHOW JUMPING INSTRUCTOR Oxygen Saturation 99% 03/08/2024 11:13 AM SHOW JUMPING INSTRUCTOR Inhaled Oxygen Concentration - - Weight 86.4 [...] 10/30/2016, Additional history exists eGFR 10/21/2024 10/22/2023, 07/2023, 10/21/2023, Additional history exists Procedures Procedure Name [...] AM CDT Anna Villela NP LAB BLOOD ORDER NIMESH Final Result RICHARD [address] [facility] Department [place] [address] * (ABNORMAL) Hemoglobin A1c (10/20/2023 11:46 AM CDT) Hgb A1C 10.4(H) 4.0 - 5.6 % Estimated Average Glucose 252 mg/dL RICHARD NEW Comment: The ADA recommends reporting an estimated Average Glucose (eAG) with all Hemoglobin A1c results using the equation derived from a study of 507 normal and diabetic adults. Minority populations were underrepresented and children were not included. (Diabetes Care 31:1631-6310, 2008). The eAG is not equivalent to a fasting glucose. Blood 10/20/2023 11:4 6 AM CDT 10/20/2023 11:59 AM CDT Anna Villela NP LAB BLOOD ORDER NIMESH Final Result Performing Organization Address City/[facility]/ZIP Co de Phone Number RICHARD [address] [facility] Department [place] [address] * (ABNORMAL) Lipid panel (11/10/2015 2:09 PM CDT) SCRIBED Cholesterol, Total 236(A) 0 - 200 [facility] SCRIBED HDL 50 40 - 100 [facility] SCRIBED LDL 132(A) 0 - 100 [facility] SCRIBED Triglycerides 270(A) 0 - 150 [facility] Blood specimen (specimen) Historical Provider LAB BLOOD ORDERABLES Edit ed Result - Final [facility] from Last 3 Months or Most Recently Relevant to Health Maintenance Insurance [facility] CHOICE OOS [facility] CHOICE OOS Advance Directives For more information, please contact: [phone] * Full Code (Latest Code Status on File) Date Activated Date Inactivated Comments 10/20/2023 11:12 AM 10/22/2023 11:34 PM Care Teams Back Tender Fourdrinier Relationship Specialty Start Date End Date Josue Lei MD [address] [address] PCP - General 06/15/16
--- OUTSIDE RECORDS SUMMARY | 2024-07-20 12:32 | XMS_ITS | Referral Summary ---
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 Gender Identity Not on file Sexual Orientation Not on file Last Filed Vital Signs Vital Sign Reading Time Taken Comments Blood Pressure 163/80 03/08/2024 11:13 AM MEMS ENGINEER Pulse 99 03/08/2024 11:13 AM MEMS ENGINEER Temperature 36.9 C (98.4 F) 03/08/2024 11:13 AM MEMS ENGINEER Respiratory Rate 18 03/08/2024 11:13 AM MEMS ENGINEER Oxygen Saturation 99% 03/08/2024 11:13 AM MEMS ENGINEER Inhaled Oxygen Concentration - - Weight 86.4 [...] ORDER NIMESH Final Result Performing Organization Address [facility] de Phone Number [address] [place] [address] * (ABNORMAL) Hemoglobin A1c (10/20/2023 11:46 AM CDT) Pathologist [facility] Hgb A1C 10.4(H) 4.0 - 5.6 % Estimated Average Glucose 252 mg/dL RICHARD Comment: The ADA recommends reporting an estimated Average Glucose (eAG) with all Hemoglobin A1c results using the equation derived from a study of 507 normal and diabetic adults. Minority populations were underrepresented and children were not included. (Diabetes Care 31:5491-2779, 2008). The eAG is not equivalent to a fasting glucose. Blood 10/20/2023 11:4 6 AM CDT 10/20/2023 11:59 AM CDT Annabenedict Villela NP LAB BLOOD ORDER NIMESH Final Result Performing Organization Address [facility] de Phone Number [place] [address] [place] [address] * (ABNORMAL) Lipid panel (11/10/2015 2:09 PM CDT) [facility] SCRIBED Cholesterol, Total 236(A) 0 - 200 [facility] SCRIBED HDL 50 40 - 100 [facility] SCRIBED LDL 132(A) 0 - 100 [facility] SCRIBED Triglycerides 270(A) 0 - 150 [facility] Blood specimen (specimen) us Historical Provider LAB BLOOD ORDERABLES Edit ed Result - Final [facility] from Last 3 Months or Most Recently Relevant to Health Maintenance Insurance [facility] CHOICE OOS [facility] CHOICE OOS Advance Directives For more information, please contact: [phone] * Full Code (Latest Code Status on File) Date Activated Date Inactivated Comments 10/20/2023 11:12 AM 10/22/2023 11:34 PM Care Teams Graphic Technician Relationship Specialty Start Date End Date Josue Lei MD [address] [address] PCP - General 06/15/16
--- OUTSIDE RECORDS SUMMARY | 2024-07-20 12:32 | XMS_ITS | Clinical Summary ---
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 Gender Identity Not on file Sexual Orientation Not on file Obstetrics History Last Filed Vital Signs Vital Sign Reading Time Taken Comments Blood Pressure 163/80 03/08/2024 11:13 AM HANDLE ASSEMBLER Pulse 99 03/08/2024 11:13 AM HANDLE ASSEMBLER Temperature 36.9 C (98.4 F) 03/08/2024 11:13 AM HANDLE ASSEMBLER Respiratory Rate 18 03/08/2024 11:13 AM HANDLE ASSEMBLER Oxygen Saturation 99% 03/08/2024 11:13 AM HANDLE ASSEMBLER Inhaled Oxygen Concentration - - Weight 86.4 [...] Screening 10/30/2017 10/30/2016 Foot Exam 12/12/2018 12/12/2017 Hemoglobin A1C 04/21/2024 10/20/2023, 11/17, 10/30/2016, Additional history exists eGFR 10/21/2024 10/22/2023, 0807/2023, 10/21/2023, Additional history exists Influenza Vaccine (Season Ended) 2024 Procedures Procedure Name Priority Date/Time Associated Diagnosis [...] LAB BLOOD ORDER NIMESH Final Result RICHARD [address] [facility] Department [place] [address] * (ABNORMAL) Hemoglobin A1c (10/20/2023 11:46 AM CDT) Hgb A1C 10.4(H) 4.0 - 5.6 % Estimated Average Glucose 252 mg/dL RICHARD NEW Comment: The ADA recommends reporting an estimated Average Glucose (eAG) with all Hemoglobin A1c results using the equation derived from a study of 507 normal and diabetic adults. Minority populations were underrepresented and children were not included. (Diabetes Care 31:7905-6644, 2008). The eAG is not equivalent to a fasting glucose. Blood 10/20/2023 11:4 6 AM CDT 10/20/2023 11:59 AM CDT Anna Villela NP LAB BLOOD ORDER NIMESH Final Result Performing Organization Address City/[facility]/ZIP Co de Phone Number RICHARD [address] [facility] Department [place] [address] * (ABNORMAL) Lipid panel (11/10/2015 2:09 PM CDT) SCRIBED Cholesterol, Total 236(A) 0 - 200 [facility] SCRIBED HDL 50 40 - 100 [facility] SCRIBED LDL 132(A) 0 - 100 [facility] SCRIBED Triglycerides 270(A) 0 - 150 [facility] Blood specimen (specimen) Historical Provider LAB BLOOD ORDERABLES Edit ed Result - Final [facility] from Last 3 Months or Most Recently Relevant to Health Maintenance Insurance [facility] CHOICE OOS [facility] O[facility] Advance Directives For more information, please contact: [phone] * Full Code (Latest Code Status on File) Date Activated Date Inactivated Comments 10/20/2023 11:12 AM 10/22/2023 11:34 PM Care Teams Jointer Machine Relationship Specialty Start Date End Date Josue Lei MD [address] [address] PCP - General 06/15/16
--- OUTSIDE RECORDS SUMMARY | 2024-07-20 12:32 | XMS_ITS | Continuity of Care Document ---
Author Organization Located within [facility] Address [address] [facility] [address] [place] [address] Phone Care Team Providers Care Operations Staff Specialist Security Name Role Phone Jay Ramos Unavailable Unavailable [...] Diagnoses Date Provider Providers Copied on Encounter [facility], [address] [place] [address] [address], [place], [place], [id number], [place] tel:[phone] [facility] No Information 2-201 0 Richard Thompson. [address] [place], [address], [place]. tel:[phone] Referring Provider: Jay Berger, [address] [place], [place], [facility]. tel:[phone] [facility], [address] [place] [address] [address], [place], [place], [address], [place] tel:[phone] [facility] No Information Oct-0 6-200 9 Richard Thompson. [address] [place], [place], [facility], [place]. tel:[phone] Referring Provider: Jay Berger, [address] [place], [place], [facility]. tel:[phone] [facility], [address] [place] [address] [address], [place], [place], [id number], [place] tel:[phone] SEC [facility] [place] No Information 9 David Franciscohil. [address], [place], [place], [facility], [place]. tel:[phone] Office Consultation [facility], [address], [place], [place], [address], [place] tel:[phone] SEC [facility] No Information 8 Richard Thompson. [address] [place], [place], [facility], [place]. tel:[phone] Referring Provider: Pearl Edwards, [address] [place], [place] [address], [place], [facility]. tel:[phone] Office/outpati ent Visit, [facility], [address] [place] [address] [address], [place], [place], [address], [place] tel:[phone] SEC [facility] Center No Information 8 Lucila Kang. [facility] [address] , [address], [place], [facility], [place]. tel:[phone] Office/outpati ent Visit, [facility], [address] [place] [address] [address], [place], [place], [address], [place] tel:[phone] [facility] [place] No Information 8 Lucila Kang. [address] [facility] , [address], [place], [facility], [place]. tel:[phone] Office/outpati ent Visit, [facility], [address] [place] [address] [address], [place], [place], [address], [place] tel:[phone] SEC [facility] No Information Sep-0 3-200 7 Gaytan Pearl. [address] , [address], [place], [address], . tel:[phone] [facility], [address], [place], [place], [address], [place] tel:[phone] [facility] No Information Feb-2 6-200 6 Gaytan Pearl. [address] [facility] [facility] , [address], [place], [address], [place]. tel:[phone] Referring Provider: Josue Lei MD, [address] [place] [address], [place], [address]. tel:[phone] Family History Family Member Type Diagnosis Age [...]
--- NOTE | 2024-07-20 12:35 | ED.BACK ---
HPI - Back Pain/Injury General Chief Complaint: Back Pain/Injury Stated Complaint: back pain Time Seen by Provider: 07/20/24 11:45 History of Present Illness HPI Narrative: 59-year-old male presenting with acute on chronic lower back pain. Has a long history of low back pain but feels it has been exacerbated over the last day or so. Says the pain shoots down his legs and when he walks they feel like they are going to give out. States that this has happened in the past he was supposed to follow-up with spine surgery but he has not because they told him they do not deal with worker's comp. States that he continues to do a lot of heavy lifting for work he thinks that this is exacerbated it. He has not taken any of his at home Vicodin. No fevers, saddle anesthesia, loss of control of bladder or bowels. Related Data Home Medications ?Medication ?Instructions ?Recorded ?Confirmed ?Last Taken ?Type glucagon 3 mg/actuation nasal spray 3 mg intranasal ONCE PRN 03/14/23 05/21/24 Unknown History hypoglycemia amlodipine 10 mg tablet (Norvasc) 10 mg PO DAILY@1700 05/21/24 05/21/24 Unknown History atorvastatin 80 mg tablet 80 mg PO DAILY@1700 05/21/24 05/21/24 Unknown History insulin pump cart,auto,BT,G6/7 05/21/24 05/21/24 Unknown History (Omnipod 5 G6-G7 Pods (Gen 5) subcutaneous cartridge) irbesartan 300 mg tablet 300 mg PO DAILY@1700 05/21/24 05/21/24 Unknown History Allergies Allergy/AdvReac Type Severity Reaction Status Date / Time ciprofloxacin Allergy Intermediate Swelling Verified 07/20/24 10:21 Penicillins Allergy Mild other Verified 07/20/24 10:21 shellfish derived Allergy Diarrhea Verified 07/20/24 10:21 Review of Systems Review of Systems: All systems reviewed & are unremarkable except as noted in HPI and below PMFSH Past Medical History Medical History Alcohol abuse Mixed hyperlipidemia LDL 149 with HDL 61 on 01/18/2022. 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 Mild nonproliferative diabetic retinopathy 12/16/2023. Colon cancer screening Family History Family History Father Cerebrovascular accident Myocardial infarction Social History Social History Smoking status: Never smoker Smokeless tobacco user: chewing tobacco Second hand tobacco smoke exposure: No Alcohol intake: current Drinks per week: 40 Alcohol use details: Ring 6 drinks of vodka every day. Estimates intake of 40 drinks a week on average Substance use: never Substance use type: does not use Do You Feel Safe in your Home?: Yes Lack of Transportation: No Lack of Food: Sometimes True Current Housing: I Have Housing Concerned About Future Housing: No Difficulty Paying Gas/Electric Bills: No Difficulty Paying for Meds: No Currently Unemployed: No Education: High School Diploma/GED Difficulty w/ Childcare or Family Care: No Spiritual care concerns: No Exam Narrative: GENERAL: Well-appearing, in no acute distress, pleasant cooperative HEAD: Normocephalic, atraumatic. EYES: PERRLA and EOMI. ENT: Nares clear, no rhinorrhea or epistaxis. Mucous membranes moist. NECK: Supple. CHEST: No respiratory distress. HEART: Regular rate and rhythm ABDOMEN: Soft, nontender, nondistended EXTREMITIES: Normal range of motion. No edema. BACK: mild bilateral paraspinal tenderness in lumbar spine SKIN: Warm, dry, no rash. NEURO: No focal deficits. Alert and oriented x3. 5/5 strength in lower extremities, no sensory deficits PSYCH: Normal mood and affect. Course Vital Signs Vital signs: Vital Signs Temperature 98.0 F 07/20/24 10:27 Pulse Rate 110 H 07/20/24 10:27 Respiratory Rate 18 07/20/24 10:27 Blood Pressure 138/64 07/20/24 10:27 Pulse Oximetry 98 07/20/24 10:27 Oxygen Delivery Room Air 07/20/24 10:27 Temperature 98.0 F 07/20/24 10:27 Pulse Rate 110 H 07/20/24 10:27 Respiratory Rate 18 07/20/24 10:27 Blood Pressure 138/64 07/20/24 10:27 Pulse Oximetry 98 07/20/24 10:27 Oxygen Delivery Room Air 07/20/24 10:27 MDM - Back Pain/Injury MDM Narrative Medical decision making narrative: 59-year-old male presenting with acute on chronic lower back pain. He is neurologically intact. He denies any red flag symptoms. Will give a dose of IM Toradol and send in for a burst of prednisone. Advised that he follow-up with Spine surgery as well as his PCP. Appropriate return precautions given. He is agreeable this plan. Discharged in stable condition. Differential Diagnosis Differential diagnosis: Likely lumbar radiculopathy, sciatica and strain of lumbar region Medical Records Attestation: I reviewed the patient's medical records. Critical Care Time Critical Care Time Critical Care Time: No Discharge Plan Discharge Clinical Impression: Lumbar back pain with radiculopathy affecting lower extremity Patient Disposition: Home Condition: Stable Instructions: Antibiotic Form, Lumbar Radiculopathy (ED) Additional Instructions: Please take the steroids as prescribed. Steroids can increase your blood sugars so make sure to keep an eye on your sugar. Follow-up closely with your PCP. We also recommend following up with spine surgery at the number below. Please call to make an appointment. If your symptoms worsen or other concerning symptoms arise, please return to the ER. Patient Language: Sammarinese Prescriptions: New prednisone 50 mg tablet 50 mg PO DAILY Qty: 5 0RF No Action glucagon 3 mg/actuation spray,non-aerosol 3 mg intranasal ONCE PRN (Reason: hypoglycemia) Rx Instructions: as a single dose; may repeat once in 15 minutes if no response (DME) Dexcom G6 Electric Switch Tester Misc See Rx Instructions .ROUTE .MEDSUPPLY Qty: 1 0RF Rx Instructions: Will use smartphone tadalafil [Cialis] 20 mg tablet 20 mg PO DAILY PRN (Reason: sexual activity) Qty: 18 3RF (DME) Dexcom G6 Sensor Device See Rx Instructions .ROUTE .MEDSUPPLY Qty: 9 4RF Rx Instructions: Use to Monitor Glucose ; Change every 10 days ondansetron 4 mg tablet,disintegrating 4 mg PO Q6H PRN (Reason: nausea and vomiting) Qty: 10 0RF (DME) Omnipod 5 G6-G7 Pods (Gen 5) Cartridge See Rx Instructions .ROUTE Rx Instructions: As directed atorvastatin 80 mg tablet 80 mg PO DAILY@1700 amlodipine [Norvasc] 10 mg tablet 10 mg PO DAILY@1700 irbesartan 300 mg tablet 300 mg PO DAILY@1700 thiamine HCl (vitamin B1) [Vitamin B-1] 100 mg Tablet 100 mg PO QAM 14 Days Qty: 14 0RF (DME) blood-glucose meter [OneTouch Verio Flex meter] [facility] Qty: 1 0RF Rx Instructions: May substitute to in-stock meter and/or covered by insurance. Use As Directed (DME) OneTouch Verio test strips Strip Qty: 1 0RF Rx Instructions: May substitute to in-stock and/or covered by insurance strips. Use As Directed (DME) lancets [OneTouch Delica Plus Lancet] 30 gauge [facility] Qty: 1 0RF Rx Instructions: May substitute to in-stock and/or covered by insurance lancets. Use As Directed insulin glargine [Lantus Solostar U-100 Insulin] 100 unit/mL (3 mL) insulin pen 25 unit subcut QAM 30 Days Qty: 7.5 1RF insulin lispro [Humalog U-100 Insulin] 100 unit/mL solution 7 unit subcut .tid w meal Qty: 3 0RF insulin aspart U-100 [Novolog FlexPen U-100 Insulin] 100 unit/mL (3 mL) insulin pen 1 sliding scale dose subcut USEASDIRECTD Qty: 15 0RF insulin lispro [Humalog U-100 Insulin] 100 unit/mL solution 100 unit continuous subcutaneous infusion DAILY MDD 100 90 Days Qty: 90 1RF prednisone 20 mg tablet 40 mg PO . q.a.m. Qty: 14 0RF (DME) insulin pump cart,automated,BT Cartridge See Rx Instructions .ROUTE .MEDSUPPLY Qty: 45 3RF Rx Instructions: change every 48 hours hydrocodone-acetaminophen 5-325 mg tablet 1 tablet PO Q6H PRN (Reason: pain) Qty: 120 0RF Follow-up/Referrals: Earle Louis MD [Physician] - Josue Lei MD [Primary Care Provider] - Stand Alone Forms: Work/School Release IP
[2024-07-20] MEDS: KETOROLAC 30 MG/ML VIAL (*BKC) IM (12:43)
== END 2024-07-20 12:57 | disposition home or self-care (01) ==
PROVIDERS: Emergency Provider Emergency Medicine; PCP Family Medicine
DX: M54.50 Low back pain, unspecified (principal); M54.16 Radiculopathy, lumbar region; G89.29 Other chronic pain; E10.9 Type 1 diabetes mellitus without complications; Z96.41 Presence of insulin pump (external) (internal); Z79.4 Long term (current) use of insulin; E78.5 Hyperlipidemia, unspecified; I10 Essential (primary) hypertension; K21.9 Gastro-esophageal reflux disease without esophagitis; E10.319 Type 1 diabetes mellitus with unspecified diabetic retinopathy without macular edema
CPT/HCPCS: 96372; 99283; J1885

== ENCOUNTER 2024-10-24 10:56 | Emergency (ER) | payer OTHER, SELFPAY ==
--- NOTE | ~2024-10-24 | XR_ITS ---
EXAMINATION: XR ankle LT min 3V, XR foot LT min 3V DATE: 10/24/2024 12:38 INDICATION: Left foot and ankle swelling TECHNIQUE: 1. Anteroposterior, mortise, additional oblique and lateral view of the left ankle were obtained. 2. Dorsoplantar, two oblique and lateral views of the left foot were obtained. COMPARISON: None. FINDINGS: Alignment of the left foot and ankle is normal. Nondisplaced fracture with sclerosis along the subtle lucent fracture plane which extends across the neck of the fifth proximal phalanx suggesting subacut e chronicity. Severe osteoarthritis at the first metatarsophalangeal joint. Moderate osteoarthritis a t the second-fourth distal small plantar calcaneal spur and small enthesopathic ossicle at the proxim al plantar aponeurosis. Interphalangeal joints. Mild osteoarthritis at a few of the tarsal metatarsal and remaining interphalangeal joints. No ankle joint effusion. Diffuse mild soft tissue swelling abo ut the distal calf, foot and ankle. Scattered vascular calcifications. IMPRESSION: 1. Nondisplaced subacute appearing fracture extending across the neck of the fifth tarsal phalanx. Co rrelate with clinical history. 2. Polyarticular osteoarthritis in the mid and forefoot, severe at the first metatarsophalangeal join t, moderate at a few of the distal interphalangeal joints and otherwise mild. Reviewed, dictated and finalized at location A. IMPRESSION: 1. Nondisplaced subacute appearing fracture extending across the neck of the fi fth tarsal phalanx. Correlate with clinical history. 2. Polyarticular osteoarthritis in the mid and forefoot, severe at the first me tatarsophalangeal joint, moderate at a few of the distal interphalangeal joints and otherwise mild.
--- NOTE | ~2024-10-24 | US_ITS ---
EXAMINATION: US venous doppler [facility] DATE: 10/24/2024 12:03 INDICATION: Left lower limb swelling TECHNIQUE: Grayscale ultrasound images without and with compression and Doppler ultrasound images of the left lower extremity veins were obtained. COMPARISON: None. FINDINGS: The visualized portions of left common femoral vein, profunda (deep) femoral vein, femoral vein, popl iteal vein, peroneal veins, posterior tibial veins and greater saphenous vein outflow are patent. IMPRESSION: 1. No deep venous thrombosis in the left lower limb. Reviewed, dictated and finalized at location A.
--- OUTSIDE RECORDS SUMMARY | 2024-10-24 10:58 | XMS_ITS | Clinical Summary ---
Author Organization [facility] [address] [place] [address] Care Team Providers Care Supervisor Heat Treating Name Role Phone Josue Lei MD Primary Care Provider [phone] Allergies Active Allergy Reactions Criticality Noted Date [...] History Date Comments Type 2 diabetes mellitus Diabete s type 2 Family History Medical History Relation Name Comments Diabetes type II Sister Diabetes -T ype 2; Relation Name Status Comments Sister Social History Tobacco Use Types Packs/Day Years Used Date Smoking Tobacco: Never Smokeless Tobacco: Current Chew Alcohol Use Standard Drinks/Week Comments Yes 0 (1 standard drink = 0.6 oz pur e alcohol) a lot AUDIT-C Answer Date Recorded Q1: How often [...] making you feel afraid or unsafe? Denies 07/21/2024 Sex and Gender Information Value Date Recorded Sex Assigned at Not on file Legal Sex Male 11:13 AM [employer] Gender Identity Not on file Sexual Orientation Not on file Obstetrics History Last Filed Vital Signs Vital Sign Reading Time Taken Comments Blood Pressure 172/85 07/21/2024 6:40 PM CDT Pulse 115 07/21/2024 6:40 PM CDT Temperature 36.4 C (97.5 F) 07/21/2024 6:40 PM CDT Respiratory Rate 19 07/21/2024 6:40 PM CDT Oxygen Saturation 100% 07/21/2024 6:40 PM CDT Inhaled Oxygen Concentration - - Weight 86.4 kg (190 lb 7.6 oz) 10/20/2023 11:10 AM CDT Height 180.3 cm (5' 11) 10/20/2023 11:10 AM CDT Body Mass Index [...] Exam 12/12/2018 12/12/2017 Hemoglobin A1C 04/21/2024 10/20/2023, 09/2 09/2017, 10/30/2016, Additional history exists eGFR 10/21/2024 10/22/2023, 07/2023, 10/21/2023, Additional history exists Influenza Vaccine (#1) 2024 Procedures Procedure Name Priority Date/Time Associated [...] LAB BLOOD ORDER NIMESH Final Result RICHARD [address] [facility] Department [place] [address] * (ABNORMAL) Hemoglobin A1c (10/20/2023 11:46 AM CDT) Hgb A1C 10.4(H) 4.0 - 5.6 % Estimated Average Glucose 252 mg/dL RICHARD NEW Comment: The ADA recommends reporting an estimated Average Glucose (eAG) with all Hemoglobin A1c results using the equation derived from a study of 507 normal and diabetic adults. Minority populations were underrepresented and children were not included. (Diabetes Care 31:4341-1652, 2008). The eAG is not equivalent to a fasting glucose. Blood 10/20/2023 11:4 6 AM CDT 10/20/2023 11:59 AM CDT Anna Villela NP LAB BLOOD ORDER NIMESH Final Result Performing Organization Address City/[facility]/ZIP Co de Phone Number RICHARD [address] [facility] Department [place] [address] * (ABNORMAL) Lipid panel (11/10/2015 2:09 PM CDT) [facility] SCRIBED Cholesterol, Total 236(A) 0 - 200 [facility] SCRIBED HDL 50 40 - 100 [facility] SCRIBED LDL 132(A) 0 - 100 [facility] SCRIBED Triglycerides 270(A) 0 - 150 [facility] Blood specimen (specimen) Historical Provider LAB BLOOD ORDERABLES Edit ed Result - Final Performing Organization Address City/[facility]/ZIP Co de Phone Number [facility] from Last 3 Months or Most Recently Relevant to Health Maintenance Insurance [facility] HMO BLUE ACC CHOICE OOS Advance Directives For more information, please contact: [phone] * Full Code (Latest Code Status on File) Date Activated Date Inactivated Comments 10/20/2023 11:12 AM 10/22/2023 11:34 PM Care Teams Supervisor Heat Treating Relationship Specialty Start Date End Date Josue Lei MD [address] [address] PCP - General 06/15/16
--- OUTSIDE RECORDS SUMMARY | 2024-10-24 10:58 | XMS_ITS | Continuity of Care Document ---
Author Organization formerly [facility] Address [address] [place] [address] Phone Care Team Providers Care Shingle Weaver Name Role Phone Jay Ramos Unavailable Unavailable [...] Diagnoses Date Provider Providers Copied on Encounter [facility], [address] [place] [address] [address], [place], [place], [id number], [place] tel:[phone] [facility] No Information 2-201 0 Richard Thompson. [address] [place], [address], [place]. tel:[phone] Referring Provider: Jay Berger, [address] [place], [place], [facility]. tel:[phone] [facility], [address] [place] [address] [address], [place], [place], [id number], [place] tel:[phone] SEC [facility] No Information Oct-0 6-200 9 Richard Thompson. [address] [place], [place], [facility], [place]. tel:[phone] Referring Provider: Jay Berger, [address] [place], [place], [facility]. tel:[phone] [facility], [address] [place] [address] [address], [place], [place], [id number], [place] tel:[phone] [facility] [place] No Information 9 David Franciscohil. [address], [place], [place], [facility], [place]. tel:[phone] Office Consultation [facility], [address], [place], [place], [id number], [place] tel:[phone] SEC [facility] No Information 8 Richard Thompson. [address] [place], [place], [facility], [place]. tel:[phone] Referring Provider: Pearl Edwards, [address] [place], [place] [address], [place], [facility]. tel:[phone] Office/outpati ent Visit, [facility], [address] [place] [address] [address], [place], [place], [id number], [place] tel:[phone] SEC [facility] [address] No Information 8 Lucila Kang. [facility] [address] , [address], [place], [facility], [place]. tel:[phone] Office/outpati ent Visit, [facility], [address] [place] [address] [address], [place], [place], [id number], [place] tel:[phone] [facility] [place] No Information 8 Lucila Kang. [address] [facility] , [address], [place], [facility], [place]. tel:[phone] Office/outpati ent Visit, [facility], [address] [place] [address] [address], [place], [place], [id number], [place] tel:[phone] SEC [facility] No Information Sep-0 3-200 7 Gaytan Pearl. [address] , [address], [place], [address], . tel:[phone] [facility], [address], [place], [place], [id number], [place] tel:[phone] [facility] No Information Feb-2 6-200 6 Gaytan Pearl. [address] [facility] , [address], [place], [address], [place]. tel:[phone] Referring Provider: Josue Lei MD, [address] [place] [address], [place], [address]. tel:[phone] Family History Family Member Type Diagnosis Age [...]
--- OUTSIDE RECORDS SUMMARY | 2024-10-24 10:58 | XMS_ITS | Clinical Summary ---
Author Organization [facility] Address [facility] [place] [address] Care Team Providers Care Shotgun Shell Reprinting Unit Operator Name Role Phone Unavailable Primary Care Provider Unavailabl e Social History Tobacco Use Types Packs/Day Years Used Date Smoking Tobacco: Never Assessed Sex and Gender Information Value Date Recorded Sex Assigned at Not on file Legal Sex Male 6:53 PM CDT Gender Identity Not on file Sexual Orientation Not on file Plan of Treatment Health Maintenance Due Date Last Done Comments Colorectal Cancer Screening Colonoscopy (10 Years) 1966 Annual Physical 1969 Hepatitis C 1984 DTaP, Tdap and Td Vaccines ( 1 - Tdap) 1985 Hepatitis B Vaccines (1 of 3 - 19+ 3-dose series) 1985 Pneumococcal Vaccine: 50+ Ye ars (1 of 1 - PCV) 2016 Zoster Vaccines (1 of 2) 2016 COVID-19 Vaccine (2023-2 5 season) 2023 Meningococcal B Vaccine Aged Out No l onger eligible based on patient's age to complete this topic Meningococcal Vaccine Aged Out No ludmila fabricio eligible based on patient's age to complete this topic RSV Immunizations Under 20 Months Aged Out No longer eligible based on patient's age to complete this topic
[2024-10-24 11:06] VITALS: BP 171/96; PULSE 118; RESP 20; TEMP 36.7; O2SAT 95
--- OUTSIDE RECORDS SUMMARY | 2024-10-24 11:17 | XMS_ITS | Continuity of Care Document ---
Author Organization [facility] Address [address] [facility] [place] [address] Phone Care Team Providers Care Mechatronics Engineer Name Role Phone Jay Ramos Unavailable Unavailable [...] Copied on Encounter [facility], [address] [place] [address] [address], [place], [place], [id number], [place] tel:[phone] [facility] No Information 2-201 0 Richard Thompson. [address] [place], [address], [place]. tel:[phone] Referring Provider: Jay Berger, [address] [place], [place], [facility]. tel:[phone] [facility], [address] [place] [address] [address], [place], [place], [id number], [place] tel:[phone] [facility] No Information Oct-0 6-200 9 Richard Thompson. [address] [place], [facility], [place]. tel:[phone] Referring Provider: Jay Berger, [address] [place], [facility]. tel:[phone] [facility], [address] [place] [address] [address], [place], [place], [id number], [place] tel:[phone] [facility] [place] No Information 9 David Franciscohil. [address], [place], [facility], [place]. tel:[phone] Office Consultation [facility], [address], [place], [place], [id number], [place] tel:[phone] SEC [facility] No Information 8 Richard Thompson. [address] [place], [facility], [place]. tel:[phone] Referring Provider: Pearl Edwards, [address] [place], [place] [address], [place], [facility]. tel:[phone] Office/outpati ent Visit, [facility], [address] [place] [address] [address], [place], [place], [id number], [place] tel:[phone] SEC [facility] [address] No Information 8 Lucila Kang. [facility] [address] , [address], [place], [facility], [place]. tel:[phone] Office/outpati ent Visit, [facility], [address] [place] [address] [address], [place], [place], [id number], [place] tel:[phone] [facility] [place] No Information [address] , [address], [place], [facility], [place]. tel:[phone] Office/outpati ent Visit, [facility], [address] [place] [address] [address], [place], [place], [id number], [place] tel:[phone] [facility] No Information Sep-0 3-200 7 Gaytan Pearl. [address] , [address], [place], [address], . tel:[phone] [facility], [address], [place], [place], [address], [place] tel:[phone] [facility] No Information Feb-2 6-200 [address] [facility] , [address], [place], [address], [place]. tel:[phone] Referring Provider: Josue Lei MD, [address] [place] [address], [place], [address]. tel:[phone] Family History Family Member Type Diagnosis Age [...]
--- NOTE | 2024-10-24 11:18 | ED_ITS ---
HPI - General Adult General Chief complaint: Extremity Problem,Nontraumatic Stated complaint: L FOOT SWELLING X4D Time Seen by Provider: 10/24/24 11:02 History of Present Illness HPI narrative: 59-year-old male presenting to the emergency department for evaluation for left foot ankle swelling it has been ongoing for the last 4 days. Patient reports on Saturday he did have a fall and landed on his back. Patient denies any injury to his foot or ankle time. Patient did have follow-up with primary care physician and was instructed to have follow-up emergency department. Patient denies any prior history of DVT. Patient denies a history of gout Patient does have type 1 diabetes, diabetic retinopathy, hypertension, high cholesterol, history of alcohol abuse Related Data Allergies Allergy/AdvReac Type Severity Reaction Status Date / Time ciprofloxacin Allergy Intermediate Swelling Verified 10/24/24 11:35 Penicillins Allergy Mild other Verified 10/24/24 11:35 shellfish derived Allergy Diarrhea Verified 10/24/24 11:35 Review of Systems 2 Review of Systems: All systems reviewed & are unremarkable except as noted in HPI and below PMFSH Past Medical History Medical History (Updated 10/24/24 @ 13:13 by Bg Duval MD) Edema, peripheral Alcohol abuse Mixed hyperlipidemia LDL 149 with HDL 61 on 01/18/2022. 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 Mild nonproliferative diabetic retinopathy 12/16/2023. Colon cancer screening Family History Family History Father Cerebrovascular accident Myocardial infarction Social History Social History (Updated 10/12/24 @ 10:51 by Jessa Gudino CMA) Smoking status: Never smoker Smokeless tobacco user: chewing tobacco Second hand tobacco smoke exposure: No Alcohol intake: current Drinks per week: 40 Alcohol use details: 6 drinks of vodka every day. Estimates intake of 40 drinks a week on average Substance use: never Substance use type: does not use Do You Feel Safe in your Home?: Yes Lack of Transportation: No Lack of Food: Sometimes True Current Housing: I Have Housing Concerned About Future Housing: No Difficulty Paying Gas/Electric Bills: No Difficulty Paying for Meds: No Currently Unemployed: No Education: High School Diploma/GED Difficulty w/ Childcare or Family Care: No Spiritual care concerns: No Exam 2 Narrative: APPEARANCE: Well appearing, no pain, no distress, well-nourished. HEAD: normocephalic, atraumatic. EYES: PERRLA/EOMI, conjunctivae clear. NOSE: Normal no drainage EARS:TMS clear with good light reflex. THROAT: Pharynx clear, no exudate. NECK: Supple. No adenopathy, no masses. RESPIRATORY: Airway patent, respirations nonlabored. Clear to auscultation bilaterally, no rales, rhonchi, wheezing. CARDIOVASCULAR: Regular rate and rhythm without murmurs rubs or gallops. ABDOMINAL: Soft, nontender, nondistended, normal bowel sounds MUSCULOSKELETAL: Swelling of left foot and ankle, +3 pitting edema of lower ankle, no tenderness to posterior calf medial thigh on left NEURO: Alert. Cranial nerves II through XII intact. Good gait. Good coordination SKIN: Warm, dry. Normal Color. No evidence of cellulitic changes, strong cap refill affected foot Course Vital Signs Vital signs: Vital Signs Temperature 98.1 F 10/24/24 11:06 Pulse Rate 118 H 10/24/24 11:06 Respiratory Rate 20 10/24/24 11:06 Blood Pressure 171/96 H 10/24/24 11:06 Pulse Oximetry 95 10/24/24 11:06 Oxygen Delivery Room Air 10/24/24 11:06 Temperature 98.1 F 10/24/24 11:06 Pulse Rate 75 10/24/24 13:38 Respiratory Rate 20 10/24/24 13:38 Blood Pressure 133/85 10/24/24 13:38 Pulse Oximetry 99 10/24/24 13:38 Oxygen Delivery Room Air 10/24/24 11:06 Medical Decision Making [facility] Narrative Medical decision making narrative: 51-year-old male presents to the emergency department for evaluation left foot pain swelling and ankle pain. Patient did have a fall last week. Patient has had swelling over the last 3-4 days. Patient states swelling does improve when he elevates the foot and ankle. Patient is currently afebrile with no leukocytosis hemoglobin 14.3. Patient has a normal INR. Patient has no acute abnormalities on his CMP ultrasound was negative for DVT. foot x-ray does show a fracture of the tarsal phalanx on the left. Patient does not have reproducible tenderness to the 5th toe clearly tarsal or metatarsal. Discussed using an Zoran wrap verses a splint and patient prefers to have a splint on the affected foot due to ankle pain as well. Higher concern for ankle sprain rather than an acute fracture of the foot. Patient was provided crutches for nonweightbearing. Patient will have close follow-up with Orthopedics and with his primary care physician. All questions concerns were addressed. Differential Diagnosis Differential Diagnosis: Toe fracture, foot fracture, foot sprain, ankle sprain Vital Signs Vital Signs: Vital Signs Temperature 98.1 F 10/24/24 11:06 Pulse Rate 118 H 10/24/24 11:06 Respiratory Rate 20 10/24/24 11:06 Blood Pressure 171/96 H 10/24/24 11:06 Pulse Oximetry 95 10/24/24 11:06 Oxygen Delivery Room Air 10/24/24 11:06 Temperature 98.1 F 10/24/24 11:06 Pulse Rate 75 10/24/24 13:38 Respiratory Rate 20 10/24/24 13:38 Blood Pressure 133/85 10/24/24 13:38 Pulse Oximetry 99 10/24/24 13:38 Oxygen Delivery Room Air 10/24/24 11:06 Lab Data Lab results reviewed: Yes I reviewed the patient's lab results. 10/24/24 11:25 10/24/24 11:25 Labs: Lab Results 10/24/24 Range/Units 11:25 WBC 10.0 (4.5-10.0) K/mm3 RBC 4.53 L (4.6-6.20) M/mm3 Hgb 14.3 (14.0-18.0) g/dL Hct 42.2 (42.0-52.0) % MCV 93.2 (80-100) fl MCH 31.6 (26-34) pg MCHC 33.9 (32-36) g/dl RDW 12.9 (11.5-14.5) % Plt Count 395 H (150-375) k/mm3 MPV 9.1 (7.4-10.4) fl Immature Gran % (Auto) 0.5 (0-0.5) % Neut % (Auto) 72.2 (45.5-73.1) % Lymph % (Auto) 17.0 L (18.3-44.2) % [place] % (Auto) 9.2 H (2.6-8.5) % Eos % (Auto) 0.3 (0-4.4) % Baso % (Auto) 0.8 (0.2-1.2) % Lymph # (Auto) 1.69 (0.9-3.2) K/mm3 [place] # (Auto) 0.9 H (0.1-0.6) K/mm3 Eos # (Auto) 0.0 (0-0.3) K/mm3 Baso # (Auto) 0.1 (0.0-0.1) K/mm3 Abs Immat Gran (auto) 0.05 H (0.00-0.031) K/mm3 Absolute Neuts (auto) 7.2 H (1.3-6.7) K/mm3 Absolute Nucleated RBC 0.000 (0.0-0.012) K/mm3 Nucleated RBC % 0.0 (0.0-0.2) % PT 12.7 (11.1-14.7) Seconds INR 1.0 APTT 25.3 (22.3-36.8) Seconds Sodium 137 (137-145) mmol/L Potassium 3.7 (3.4-5.0) mmol/L Chloride 94 L (98-107) mmol/L Carbon Dioxide 28 (22-30) mmol/L Anion Gap 15 H (4-12) mmol/L BUN 9 (9-20) mg/dL Creatinine 0.61 L (0.7-1.3) mg/dL Estim Creat Clear Calc 120 ml/min Estimated GFR > 60 (59 - ) Glucose 364 H (65-110) mg/dL Calcium 9.2 (8.4-10.2) mg/dL Total Bilirubin 0.3 (0.2-1.3) mg/dL AST 110 H (17-59) U/L ALT 88 H (6-50) U/L Alkaline Phosphatase 93 (38-126) U/L Total Protein 7.8 (6.3-8.2) g/dL Albumin 4.4 (3.5-5.1) g/dL Imaging Data Radiologist's impression: Impressions Venous Doppler Study 10/24/24 12:22 IMPRESSION: 1. No deep venous thrombosis in the left lower limb. Ankle X-Ray 10/24/24 12:45 IMPRESSION: 1. Nondisplaced subacute appearing fracture extending across the neck of the fifth tarsal phalanx. Correlate with clinical history. 2. Polyarticular osteoarthritis in the mid and forefoot, severe at the first metatarsophalangeal joint, moderate at a few of the distal interphalangeal joints and otherwise mild. Foot X-Ray 10/24/24 12:45 IMPRESSION: 1. Nondisplaced subacute appearing fracture extending across the neck of the fifth tarsal phalanx. Correlate with clinical history. 2. Polyarticular osteoarthritis in the mid and forefoot, severe at the first metatarsophalangeal joint, moderate at a few of the distal interphalangeal joints and otherwise mild. Discharge Plan Discharge Clinical Impression: Ankle pain, Fracture of tarsal bone, Leg edema Patient Disposition: Home Condition: Stable Instructions: Antibiotic Form, Foot Fracture in Adults (ED), Splint Care (ED), Edema (ED) Additional Instructions: Splint care as directed. Have close follow-up with your primary care physician Patient Language: Gabonese Prescriptions: No Action (DME) Dexcom G6 Systems Integration [place] [facility] [place] Instructions .ROUTE .MEDSUPPLY Qty: 1 0RF Rx Instructions: Will use smartphone tadalafil [Cialis] 20 mg tablet 20 mg PO DAILY PRN (Reason: sexual activity) Qty: 18 3RF (DME) Dexcom G6 Sensor Device See Rx Instructions .ROUTE .MEDSUPPLY Qty: 9 4RF Rx Instructions: Use to Monitor Glucose ; Change every 10 days (DME) blood-glucose meter [OneTouch Verio Flex meter] Misc Qty: 1 0RF Rx Instructions: May substitute to in-stock meter and/or covered by insurance. Use As Directed (DME) OneTouch Verio test strips Strip Qty: 1 0RF Rx Instructions: May substitute to in-stock and/or covered by insurance strips. Use As Directed (DME) lancets [OneTouch Delica Plus Lancet] 30 gauge misc Qty: 1 0RF Rx Instructions: May substitute to in-stock and/or covered by insurance lancets. Use As Directed insulin lispro [Humalog U-100 Insulin] 100 unit/mL solution 7 unit subcut .tid w meal Qty: 3 0RF insulin aspart U-100 [Novolog FlexPen U-100 Insulin] 100 unit/mL (3 mL) insulin pen 1 sliding scale dose subcut USEASDIRECTD Qty: 15 0RF (DME) insulin pump cart,automated,BT Cartridge See Rx Instructions .ROUTE .MEDSUPPLY Qty: 45 3RF Rx Instructions: change every 48 hours (DME) Omnipod 5 G6-G7 Pods (Gen 5) Cartridge See Rx Instructions .Route Qty: 45 0RF Rx Instructions: change every 48 hours hydrocodone-acetaminophen 5-325 mg tablet 1 tablet PO Q6H PRN (Reason: pain) Qty: 120 0RF insulin lispro [Humalog U-100 Insulin] 100 unit/mL solution 100 unit continuous subcutaneous infusion DAILY MDD 100 Qty: 90 0RF Rx Instructions: MUST KEEP APPOINTMENT amlodipine [Norvasc] 10 mg tablet 10 mg PO DAILY@1700 Qty: 90 3RF atorvastatin 80 mg tablet 80 mg PO DAILY@1700 Qty: 90 3RF irbesartan 300 mg tablet 300 mg PO DAILY@1700 Qty: 90 3RF prednisone 20 mg tablet 40 mg PO DAILY Qty: 10 0RF furosemide [Lasix] 20 mg tablet 20 mg PO QAM Qty: 5 0RF Follow-up/Referrals: Josue Lei MD [Primary Care Provider] -
[2024-10-24 11:34] LABS: Hematocrit 42.2 % (42.0-52.0); Hemoglobin 14.3 g/dL (14.0-18.0); Immature Granulocyte Percent A 0.5 % (0-0.5); Lymphocytes Absolute Auto 1.69 K/mm3 (0.9-3.2); Mean Corpuscular HGB Conc 33.9 g/dl (32-36); Mean Corpuscular Hemoglobin 31.6 pg (26-34); Mean Corpuscular Volume 93.2 fl (80-100); Nucleated Red Blood Cells Absolute Auto 0.000 K/mm3 (0.0-0.012); Nucleated Red Blood Cells Perc 0.0 % (0.0-0.2); Platelet Count Result 395 k/mm3 (150-375); Red Blood Count 4.53 M/mm3 (4.6-6.20); White Blood Count 10.0 K/mm3 (4.5-10.0)
[2024-10-24 11:44] LABS: Alanine Aminotransferase 88 U/L (6-50); Albumin Level 4.4 g/dL (3.5-5.1); Alkaline Phosphatase 93 U/L (38-126); Anion Gap 15 mmol/L (4-12); Aspartate Amino Transferase 110 U/L (17-59); Bilirubin,Total 0.3 mg/dL (0.2-1.3); Blood Urea Nitrogen 9 mg/dL (9-20); Calcium 9.2 mg/dL (8.4-10.2); Carbon Dioxide 28 mmol/L (22-30); Chloride 94 mmol/L (98-107); Estimated CRCL calculation 120 ml/min; Estimated Glomerular Filt Rate > 60; Glucose 364 mg/dL (65-110); Potassium 3.7 mmol/L (3.4-5.0); Sodium 137 mmol/L (137-145); Total Protein 7.8 g/dL (6.3-8.2)
[2024-10-24 11:51] LABS: INR 1.0; Prothrombin Time 12.7 Seconds (11.1-14.7)
[2024-10-24 11:52] LABS: Partial Thromboplastin Time 25.3 Seconds (22.3-36.8)
[2024-10-24 13:38] VITALS: BP 133/85; PULSE 75; RESP 20; O2SAT 99
== END 2024-10-24 13:40 | disposition home or self-care (01) ==
PROVIDERS: Emergency Provider Emergency Medicine; PCP Family Medicine
DX: S92.202A Fracture of unspecified tarsal bone(s) of left foot, initial encounter for closed fracture (principal); W19.XXXA Unspecified fall, initial encounter; E10.319 Type 1 diabetes mellitus with unspecified diabetic retinopathy without macular edema; I10 Essential (primary) hypertension; E78.2 Mixed hyperlipidemia; K21.9 Gastro-esophageal reflux disease without esophagitis; F10.10 Alcohol abuse, uncomplicated; Z72.0 Tobacco use; R60.0 Localized edema
CPT/HCPCS: 36415; 73610; 73630; 80053; 85025; 85610; 85730; 93971; 99284

== ENCOUNTER 2024-11-03 13:45 | Outpatient (CLI) | payer OTHER, SELFPAY ==
--- NOTE | ~2024-11-03 | MR_ITS ---
MRI of the lumbar spine Clinical History: Back pain Technique: Axial T2-weighted images, and sagittal T1-weighted, T2-weighted, and T2 fat-sat images were acquired. Findings: No acute fracture seen. There is 4 mm retrolisthesis of L3 over L4. There is 4 mm retrolisthesis of L5 over S1. No suspicious bone marrow signal abnormality seen. At L1-L2, there is mild to moderate degenerative disc narrowing. There is minimal disc bulge and mild facet arthropathy. No central canal stenosis. There is mild left neural foraminal narrowing. Right neural foramen preserved. At L2-L3, there is severe degenerative disc narrowing. Disc bulge and facet arthropathy result in severe spinal canal stenosis/thecal sac compression, and severe left neural foraminal narrowing. There is moderate to advanced right neural foraminal narrowing. L3-L4, there is degenerative disc narrowing. Disc bulge and severe facet arthropathy result in moderate to severe spinal canal stenosis/thecal sac compression. There is severe bilateral neural foraminal narrowing, right worse than left. At L4-L5, there is degenerative disc narrowing with diffuse disc bulge and severe facet arthropathy. There is moderate to severe spinal canal stenosis/thecal sac compression, and severe bilateral neural foraminal narrowing. At L5-S1, there is diffuse disc bulge/protrusion with moderate facet arthropathy. No alex central canal stenosis. There is severe bilateral neural foraminal narrowing. Paravertebral soft tissues are unremarkable. Impression: Severe degenerative spondylosis throughout the lumbar spine, as detailed above. Retrolistheses, as detailed above. Reviewed, dictated and finalized at [facility]. Impression: Severe degenerative spondylosis throughout the lumbar spine, as detailed above. Retrolistheses, as detailed above.
--- NOTE | ~2024-11-03 | XR_ITS ---
XR lumbar spine min 4V 11/03/2024 14:35 Indication: Low back pain Procedure: 5 views lumbar spine Comparison: No prior studies for comparison. Findings: There is chronic wedge shaped appearance to L1. There is disc narrowing at all lumbar levels. There is multilevel facet hypertrophy most severe at L4-5 and L5-S1. There is grade 1 degenerative spondylolisthesis at L4- 5. No significant alteration of alignment with flexion/extension views. Pedicles intact. Sacral foramen are symmetric. Impression: 1: Severe lumbar spondylosis. Reviewed, dictated and finalized at location A. Impression: 1: Severe lumbar spondylosis.
== END 2024-11-03 13:46 | disposition home or self-care (01) ==
LOC: MICIMG 13:46
PROVIDERS: PCP Family Medicine; Visit Provider Nurse Practitioner Adult Health
DX: M47.896 Other spondylosis, lumbar region (principal); M43.16 Spondylolisthesis, lumbar region; M43.17 Spondylolisthesis, lumbosacral region; G89.29 Other chronic pain
CPT/HCPCS: 72110; 72148

== ENCOUNTER 2025-01-22 16:38 | Emergency (ER) | payer OTHER, SELFPAY ==
--- OUTSIDE RECORDS SUMMARY | 2009-10-27 09:45 | XMS_ITS | Continuity of Care Document ---
Author Organization [facility] Address [address] [facility] [address] [place] [address] Phone Care Team Providers Care Medical Office Rep Name Role Phone Jay Ramos Unavailable Unavailable Procedures Procedure Date Eye Exam Established Pt Eye Exam Established Pt Ophthalmoscopy, Subsequent Ophthalmoscopy, Subsequent Eye Exam Established Pt Office Consultation Ophthalmoscopy, Subsequent Ophthalmoscopy, Subsequent Office/outpatient Visit, Est Office/outpatient Visit, Est Office/outpatient Visit, Est Eye Exam Established Pt Advance Directives Directive Yes / No Effective Date File Name No Information Encounters Encounter Description Practice Location Reason(s) For Visit Diagnoses Date Provider Providers Copied on Encounter [facility], [address] [place] [address] [address], [place], [place], [id number], [place] tel:[phone] SEC [facility] No Information 2-201 0 Richard Thompson. [address] [place], [address], [place]. tel:[phone] Referring Provider: Jay Berger, [address] [place], [place], [facility]. tel:[phone] [facility], [address] [place] [address] [address], [place], [place], [id number], [place] tel:[phone] SEC [facility] No Information Oct-0 6-200 9 Richard Thompson. [address] [place], [place], [facility], [place]. tel:[phone] Referring Provider: Jay Berger, [address] [place], [place], [facility]. tel:[phone] [facility], [id number] [place] [address] [address], [place], [place], [id number], [place] tel:[phone] [facility] No Information 9 David Franciscohil. [address], [place], [place], [facility], [place]. tel:[phone] Office Consultation [facility], [address], [place], [place], [id number], [place] tel:[phone] [facility] No Information 8 Richard Thompson. [address] [place], [place], [facility], [place]. tel:[phone] Referring Provider: Pearl Edwards, [address] [place], [place] [address], [place], [place], [facility]. tel:[phone] Office/outpati ent Visit, [facility], [address] [place] [address] [address], [place], [place], [id number], [place] tel:[phone] [facility] [address] No Information 8 Lucila Kang. [facility] , [address], [place], [place], [facility], [place]. tel:[phone] Office/outpati ent Visit, [facility], [id number] [place] [address] [address], [place], [place], [id number], [place] tel:[phone] [facility] [place] No Information 8 Lucila Kang. [address] [facility] , [address], [place], [place], [facility], [place]. tel:[phone] Office/outpati ent Visit, [facility], [address] [place] [address] [address], [place], [place], [id number], [place] tel:[phone] [facility] No Information Sep-0 3-200 7 Gaytan Pearl. [address], [place], [address], . tel:[phone] [facility], [address], [place], [place], [id number], [place] tel:[phone] [facility] No Information Feb-2 6-200 6 Gaytan Pearl. [address] [facility] , [address], [place], [address], [place]. tel:[phone] Referring Provider: Josue Lei MD, [address] [place] [address], [place], [address]. tel:[phone] Family History Family Member Type Diagnosis Age At Onset No Information Payers Payer name Insurance type Covered constitution party ID Authoriza tion(s) No Information Social History Type Description Quantity Date Captured Comments Sex Male Smoking Status No Information Chief Complaint And Reason For Visit No Information Reason For Referral Reason For Referral No Information History Of Present Illness Encounter Date Complaint History Of Prese nt Illness No Information Functional Status Date Functional Assessmen t No Information Instructions Date Instruction Additional Infor mation No Information Assessments Type Assessment Date No Information Patient Care Teams Name Effective Dates (start - stop) Status Members No Information
[2025-01-22 16:45] VITALS: BP 129/77; PULSE 110; RESP 20; TEMP 36.8; O2SAT 98
--- NOTE | 2025-01-22 22:12 | PC.NURSE ---
no answer for vital signs
--- OUTSIDE RECORDS SUMMARY | 2025-01-22 22:22 | XMS_ITS | Clinical Summary ---
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 Minority populations were underrepresented and children were not included. (Diabetes Care 31:4695-7229, 2008). The eAG is not equivalent to a fasting glucose. Blood 10/20/2023 11:4 6 AM CDT 10/20/2023 11:59 AM CDT Anna Villela NP LAB BLOOD ORDER NIMESH Final Result Performing Organization Address City/[facility]/ZIP Co de Phone Number [facility] [address] [facility] Department [place] [address] * (ABNORMAL) Lipid panel (11/10/2015 2:09 PM CDT) SCRIBED Cholesterol, Total 236(A) 0 - 200 [facility] SCRIBED HDL 50 40 - 100 [facility] SCRIBED LDL 132(A) 0 - 100 [facility] SCRIBED Triglycerides 270(A) 0 - 150 [facility] Blood specimen (specimen) Historical Provider MD LAB BLOOD ORDERABLES Edit ed Result - Final Performing Organization Address City/[facility]/ZIP Co de Phone Number [facility] from Last 3 Months or Most Recently Relevant to Health Maintenance Insurance [facility] CHOICE OOS Advance Directives For more information, please contact: [phone] * Full Code (Latest Code Status on File) Date Activated Date Inactivated Comments 10/20/2023 11:12 AM 10/22/2023 11:34 PM Care Teams Director Of Golf Relationship Specialty Start Date End Date Josue Lei MD [address] [address] PCP - General 06/15/16
--- OUTSIDE RECORDS SUMMARY | 2025-01-22 22:22 | XMS_ITS | Clinical Summary ---
Author Organization [facility] Address [facility] [place] [address] Care Team Providers Care Money Order Clerk Name Role Phone Unavailable Primary Care Provider [...] Vaccines (1 of 2) 2016 COVID-19 Vaccine (2024-2 6 season) 2024 Influenza Adult (#1) 2024 Hepatitis A Vaccines Aged Out No long er eligible based on patient's age to complete this topic Meningococcal B Vaccine Aged Out No l onger eligible based on patient's age to complete this topic Meningococcal Vaccine Aged Out No ludmila fabricio eligible based on patient's age to complete this topic RSV Immunizations Under 20 Months Aged Out No longer eligible based on patient's age to complete this topic
== END 2025-01-22 22:16 | disposition left against medical advice (07) ==
LOC: ANHED 22:20
PROVIDERS: PCP Family Medicine
DX: R51.9 Headache, unspecified (principal)
CPT/HCPCS: 99199